=== PATIENT | male | born 1975 | race Caucasian/White ===

== ENCOUNTER 2018-04-30 17:35 | Observation (INO) ==
[2018-04-30] MEDS ORDERED: 0.9 % Sodium Chloride 1,000 ML IVC ONE (17:43)
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
[2018-04-30 17:53] LABS: Basophils % 0.5 %; Eosinophils # 0.2 K/mcL (0.0-0.6); Eosinophils % 2.7 %; Hematocrit 48.9 % (37.5-50.1); Hemoglobin 15.7 g/dL (12.9-16.9); Immature Granulocytes % 0.2 % (0-4); Lymphocytes % 31.9 %; Mean Corpuscular HGB Conc 32.1 g/dL (31.6-35.5); Mean Corpuscular Hemoglobin 26.4 pg (28.0-33.3); Mean Corpuscular Volume 82.3 fL (83.0-100.0); Mean Platelet Volume 9.7 fL (9.4-12.4); Monocytes # 0.4 K/mcL (0.0-1.3); Monocytes % 5.9 %; Neutrophils # 3.7 K/mcL (1.6-8.9); Platelet Count 129 K/mcL (140-400); Red Blood Count 5.94 M/mcL (4.19-5.50); Red Cell Distribution Width 15.7 % (11.5-14.5); Segmented Neutrophils % 58.8 %
[2018-04-30 17:57] LABS: INR 1.2; Prothrombin Time 13.4 Seconds (9.4-12.1)
[2018-04-30 18:16] LABS: Troponin I < 0.03 ng/mL (< 0.04)
[2018-04-30 18:17] LABS: Alanine Aminotransferase 62 Units/L (7-52); Albumin 4.4 g/dL (3.5-5.7); Albumin/Globulin Ratio 1.1 (1.1-2.2); Alkaline Phosphatase 161 Units/L (34-104); Aspartate Amino Transferase 69 Units/L (13-39); BUN/Creatinine Ratio 14 (6-26); Bilirubin,Direct 0.1 mg/dL (0.0-0.2); Bilirubin,Indirect 0.3 mg/dL (0.0-1.2); Bilirubin,Total 0.4 mg/dL (0.3-1.0); Blood Urea Nitrogen 12 mg/dL (6-20); Calcium 10.4 mg/dL (8.6-10.3); Carbon Dioxide 24 mEq/L (23-29); Chloride 108 mEq/L (98-107); Globulin 3.9 g/dL (2.4-3.5); Glucose 202 mg/dL (70-105); Osmolality,Calculated 294 (280-300); Potassium 4.1 mEq/L (3.5-5.1); Sodium 139 mEq/L (136-145); Total Protein 8.3 g/dL (6.4-8.9); eGFR For Non-African Americans > 60 (> 60)
[2018-04-30 19:29] LABS: Bilirubin,Urine Negative (Negative); Blood,Urine Negative (Negative); Clarity,Urine Clear (Clear); Color,Urine Yellow (Yellow); Glucose,Urine (UA) >=1000 mg/dL (Normal); Ketones,Urine Negative (Negative); Leukocyte Esterase,Urine Negative (Negative); Nitrite,Urine Negative (Negative); Protein,Urine Trace mg/dL (Neg-Trace); Specific Gravity,Urine 1.025 (1.010-1.025); Urobilinogen,Urine Normal (Normal)
[2018-04-30] MEDS ORDERED: Naloxone 0.4 MG/ML INJ IVP PRN (23:07)
[2018-04-30] MEDS ORDERED: Sennosides 8.6 MG TABLET PO PRN (23:09)
[2018-04-30] MEDS ORDERED: GuaiFENesin Liq 200 MG/10 ML UDC PO PRN (23:09)
[2018-04-30] MEDS ORDERED: *HR* Dextrose 50 % in Water (Syg) 50 ML SYRINGE IVP PRN (23:13)
[2018-04-30] MEDS ORDERED: Dextrose Gel 15 GM/37.5 ML TUBE PO PRN ×2 (23:13)
[2018-05-01] MEDS ORDERED: D5% in Water 1,000 ML IVC PRN (00:38)
[2018-05-01] MEDS ORDERED: Insulin DETEMIR 100 UNIT/ML X5UNITS SQ SCH (00:45)
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
[2018-05-01 01:43] LABS: Basophils % 0.7 %; Eosinophils # 0.2 K/mcL (0.0-0.6); Eosinophils % 2.9 %; Hematocrit 43.9 % (37.5-50.1); Hemoglobin 14.4 g/dL (12.9-16.9); Immature Granulocytes % 0.3 % (0-4); Lymphocytes % 34.4 %; Mean Corpuscular HGB Conc 32.8 g/dL (31.6-35.5); Mean Corpuscular Hemoglobin 26.9 pg (28.0-33.3); Mean Corpuscular Volume 81.9 fL (83.0-100.0); Monocytes # 0.3 K/mcL (0.0-1.3); Monocytes % 5.1 %; Neutrophils # 3.3 K/mcL (1.6-8.9); Platelet Count 128 K/mcL (140-400); Red Blood Count 5.36 M/mcL (4.19-5.50); Red Cell Distribution Width 15.7 % (11.5-14.5); Segmented Neutrophils % 56.6 %
[2018-05-01 02:04] LABS: BUN/Creatinine Ratio 15 (6-26); Blood Urea Nitrogen 12 mg/dL (6-20); Calcium 9.3 mg/dL (8.6-10.3); Carbon Dioxide 24 mEq/L (23-29); Chloride 114 mEq/L (98-107); Glucose 117 mg/dL (70-105); Magnesium 1.8 mg/dL (1.6-2.6); Osmolality,Calculated 299 (280-300); Phosphorous 3.5 mg/dL (2.7-4.5); Potassium 3.5 mEq/L (3.5-5.1); Sodium 144 mEq/L (136-145); eGFR For Non-African Americans > 60 (> 60)
[2018-05-01] MEDS: Baclofen 10 MG TABLET PO SCH ×3 (02:19→16:43)
[2018-05-01] MEDS: Insulin DETEMIR 100 UNIT/ML X5UNITS SQ SCH ×3 (02:19→22:07)
[2018-05-01] MEDS: Levofloxacin 750 MG/150 ML 750 MG/150 ML BAG IVPB SCH (02:41)
[2018-05-01 04:59] LABS: Amphetamine Screen,Urine Negative ng/mL (Cutoff=1000); Barbiturate Screen,Urine Negative ng/mL (Cutoff=200); Benzodiazepines Screen,Urine Positive ng/mL (Cutoff=200); Cannabinoid Screen,Urine Negative ng/mL (Cutoff = 50); Cocaine Screen,Urine Negative ng/mL (Cutoff= 300); Opiate Screen,Urine Negative ng/mL (Cutoff=300); Phencyclidine Screen,Urine Negative ng/mL (Cutoff=25)
[2018-05-01] MEDS: *HR* Heparin 5,000 UNIT/ML VIAL SQ SCH ×2 (06:51→18:44)
[2018-05-01] MEDS: Insulin LISPRO 300 UNITS/3 ML VIAL SQ SCH ×3 (08:28→16:41)
[2018-05-01] MEDS: Famotidine 20 MG TABLET PO SCH ×2 (08:46→22:07)
[2018-05-01] MEDS: Folic Acid 1 MG TABLET PO SCH (08:46)
[2018-05-01] MEDS: Multivit/Ca/Min/Fe/FA 1 TAB TABLET PO SCH (08:46)
[2018-05-01] MEDS: Topiramate 100 MG TABLET PO SCH ×2 (08:47→22:07)
[2018-05-01] MEDS: Gabapentin 400 MG CAPSULE PO SCH ×2 (08:47→22:06)
[2018-05-01] MEDS: Aspirin Enteric Coated 81 MG Tablet PO SCH (08:47)
[2018-05-01] MEDS ORDERED: (Cranberry Fruit Concentrate [Cranberry] 450 MG) PO SCH ×2 (09:00)
[2018-05-01] MEDS ORDERED: chlorproMAZINE 25 MG TABLET PO SCH (09:00)
--- NOTE | 2018-05-01 15:05 | Internal Med Progress Note ---
Hospitalist Progress Note - Encounter Date of Encounter: 05/01/18 Time of Encounter: 14:54 - Subjective Interval History: Evaluated patient earlier today. Denies any new speech abnormalities. Denies any new focal deficits. Denies any cough or shortness of breath. No nausea or vomiting. - Exam Vitals: Temp Pulse Resp BP Pulse Ox 97.9 F 73 14 119/62 96 05/01/18 14:34 05/01/18 14:34 05/01/18 14:34 05/01/18 14:34 05/01/18 14:34 Exam: General: Patient is alert, no acute distress, Head: atraumatic, normocephalic, Eye: normal appearance, PERRL, no scleral icterus, no conjunctival injection ENT: mucous membranes moist, normal external ear exam Neck: normal inspection, trachea midline, full ROM, no carotid bruits Chest: normal inspection, symmetric chest rise Respiratory: Good respiratory effort. Normal breath sounds. No wheezing or crackles.. Cardiovascular: Regular rate and rhythm. s1 and s2 No clicks, rubs, gallops, or murmurs. No pedal edema Abdomen: Abdomen is soft, nontender. Bowel sounds are present Musculoskeletal: Spontaneously moving all extremities. Skin: warm, dry, intact. Neuro: Patient has slow speech at baseline. Paraplegia at baseline. Normal strength in upper extremities. - Assessment and Plan (1) Community acquired pneumonia Current Visit: Yes Status: Acute Assessment and Plan: Right lower lobe pneumonia. Per chest x-ray findings. WBC count is normal. Will complete 7 day course of Levaquin. Follow culture results. (2) CVA (cerebral vascular accident) Current Visit: Yes Status: Suspected Assessment and Plan: Reported slurred speech. On my examination, patient has slow speech but speech is not slurred. He wants to go home but MRI of the brain and 2-D echocardiogram are currently pending. Will await results. (3) Diabetes mellitus Current Visit: Yes Status: Chronic Assessment and Plan: continue sliding scale insulin and Levemir. Diabetic diet. (4) DVT prophylaxis Current Visit: Yes Status: Acute DVT Prophylaxis: On subcutaneous heparin - Time Spent with Patient Total time spent is greater than 50% in coordination of care (as documented) at patient's floor/unit and/or counseling patient: Internal Medicine: Result - Labs CBC & Chem 7: 05/01/18 00:19 08/07/18 00:19 Labs: Short CBC 05/01/18 Range/Units 00:19 WBC 5.9 (4.3-11.1) K/mcL Hgb 14.4 (12.9-16.9) g/dL Hct 43.9 (37.5-50.1) % Plt Count 128 L (140-400) K/mcL Neutrophils # 3.3 (1.6-8.9) K/mcL BMP 05/01/18 00:19 Sodium 144 Potassium 3.5 Chloride 114 H Carbon Dioxide 24 BUN 12 Creatinine 0.78 Glucose 117 H Calcium 9.3 Cardiac Enzymes 05/01/18 05/01/18 05/01/18 Range/Units 00:19 06:21 12:38 Troponin I < 0.03 < 0.03 < 0.03 (< 0.04) ng/mL - ABG Interpretation ABG results: PT/INR, D-dimer PT 13.4 Seconds (9.4-12.1) H 04/30/18 17:40 Consult Discharge Plan - Plan Referrals: NONE,PCP [Primary Care Provider] - Jude Bailey [Family Provider] - (1) Community acquired pneumonia Qualifiers: Laterality: unspecified laterality Qualified Code(s): J18.9 - Pneumonia, unspecified organism (2) CVA (cerebral vascular accident) Qualifiers: Laterality of affected vessel: unspecified Qualified Code(s): I63.019 - Cerebral infarction due to thrombosis of unspecified vertebral artery (3) Diabetes mellitus Qualifiers: Qualified Code(s): E11.9 - Type 2 diabetes mellitus without complications
[2018-05-02] MEDS: Levofloxacin 750 MG/150 ML 750 MG/150 ML BAG IVPB SCH (01:01)
[2018-05-02] MEDS: Baclofen 10 MG TABLET PO SCH ×2 (01:02→09:40)
[2018-05-02] MEDS: *HR* Heparin 5,000 UNIT/ML VIAL SQ SCH (06:18)
[2018-05-02 07:56] VITALS: BP 112/77
--- NOTE | 2018-05-02 07:56 | Discharge Summary ---
- NOTES TO OUTPATIENT PROVIDER Notes to Outpatient Provider: Patient was hospitalized here after presenting to the ER with complaints of lethargy and decreased alertness along with concern for possible right-sided facial droop. She was evaluated here and was for diagnosed with pneumonia. He was started on treatment with antibiotics. He also had workup done to rule out CVA/stroke. MRI of the brain, head CT did not show any stroke. 2-D echocardiogram was done which showed normal ejection fraction without any PFO. At this time patient is stable to be discharged home. He will complete a 7 day course of antibiotic for pneumonia. Orders not resulted at time of discharge: Pending orders 05/01/18 01:40 Culture,Blood [BC] Routine Date of Encounter: 05/02/18 Time of Encounter: 07:56 - Discharge Diagnosis (1) Community acquired pneumonia Priority: Primary Status: Acute Qualifiers: Laterality: unspecified laterality Qualified Code(s): J18.9 - Pneumonia, unspecified organism (2) CVA (cerebral vascular accident) Priority: Secondary Status: Ruled-out Qualifiers: CVA mechanism: unspecified Qualified Code(s): I63.9 - Cerebral infarction, unspecified (3) Diabetes mellitus Priority: Secondary Status: Chronic Qualifiers: Diabetes mellitus type: type 2 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 Nelson is a 42 year old male Patient with history of paraplegia, who resides at [facility], diabetes, hypertension was hospitalized here after presenting to the ER with complaints of lethargy and decreased alertness along with concern for possible right-sided facial droop. She was evaluated here and was for diagnosed with pneumonia. He was started on treatment with antibiotics. He also had workup done to rule out CVA/stroke. MRI of the brain, head CT did not show any stroke. 2-D echocardiogram was done which showed normal ejection fraction without any PFO. At this time patient is stable to be discharged home. He will complete a 7 day course of antibiotic for pneumonia. Discharge discussed with: patient, nurse - Time Spent with Patient Total time spent providing and/or coordinating discharge services: Less than 30 minutes (25min) - Discharge Medications Prescriptions: Cefdinir [Omnicef] 300 mg PO BID #10 capsule Doxycycline 100 mg PO BID #10 capsule Gabapentin [Neurontin] 800 mg PO BID #30 tablet Tramadol HCl [Ultram] 50 mg PO Q6H 10 Days #20 tablet Home Medications: Acetaminophen [Acetaminophen ER] 650 mg PO Q4H PRN 04/30/18 [History] Aspirin Enteric Coated [Aspirin EC] 81 mg PO DAILY 04/30/18 [History] Baclofen [Lioresal] 10 mg PO Q8H 04/30/18 [History] Cranberry Fruit Concentrate [Cranberry] 450 mg PO BID 04/30/18 [History] Folic Acid 1 mg PO DAILY 04/30/18 [History] Guaifenesin [Tussin Mucus-Chest Congestion] 5 ml PO Q6H PRN 04/30/18 [History] Insulin Glargine,Hum.rec.anlog [Basaglar Kwikpen U-100] 50 unit SQ HS 04/30/18 [ History] Insulin Glargine,Hum.rec.anlog [Basaglar Kwikpen U-100] 60 unit SQ QAM 04/30/18 [History] Insulin LISPRO [HumaLOG] 2 - 25 units SQ TIDWM 04/30/18 [History] Multivitamin [One Daily Essential] 1 tab PO DAILY 04/30/18 [History] Quetiapine Fumarate [Seroquel] 75 mg PO QAM 04/30/18 [History] Quetiapine Fumarate [Seroquel] 150 mg PO HS 04/30/18 [History] Ranitidine HCl [Acid Livestock Agent] 150 mg PO BID 04/30/18 [History] Sennosides [Senna] 8.6 mg PO BID PRN 04/30/18 [History] Sertraline [Zoloft] 50 mg PO QAM 04/30/18 [History] Sertraline [Zoloft] 100 mg PO HS 04/30/18 [History] Topiramate [Topamax] 200 mg PO BID 04/30/18 [History] chlorproMAZINE [Thorazine] 50 mg PO TID 04/30/18 [History] hydrOXYzine HCl [Hydroxyzine HCl] 25 mg PO HS 04/30/18 [History] metFORMIN [Glucophage] 1,000 mg PO BIDWM 04/30/18 [History] Cefdinir [Omnicef] 300 mg PO BID #10 capsule 05/02/18 [Rx] Doxycycline 100 mg PO BID #10 capsule 05/02/18 [Rx] Gabapentin [Neurontin] 800 mg PO BID #30 tablet 05/02/18 [Rx] Tramadol HCl [Ultram] 50 mg PO Q6H 10 Days #20 tablet 05/02/18 [Rx] Allergies/Adverse Reactions: 3 Allergy/AdvReac Type Severity Reaction Status Date / Time acetaminophen Allergy Nausea Verified 10/13/17 10:02 [From Darvocet-N] Cyclobenzaprine Allergy Nausea Verified 10/13/17 10:02 [From Flexeril] propoxyphene Allergy Nausea Verified 10/13/17 10:02 [From Darvocet-N] Sulfa (Sulfonamide Allergy Nausea Verified 10/13/17 10:02 Antibiotics) Date of admission: 04/30/18 20:42 Primary care physician: PCP NONE Discharging clinician: Ayad Mack Anticipated date of discharge: 05/02/18 - Constitutional Vitals: Temp Pulse Resp BP Pulse Ox 98.4 F 57 16 152/85 99 05/02/18 05:07 05/02/18 05:07 05/02/18 05:07 05/02/18 05:07 05/02/18 05:07 General appearance: Present: A&O X 3, no acute distress, answers questions appropriately - Respiratory Respiratory exam: Present: CTAB. Absent: accessory muscle use, rales, rhonchi, wheezes - Cardiovascular Cardiovascular exam: Present: RRR, +S1, +S2. Absent: diastolic murmur, gallop, rubs, systolic murmur - GI/Abdominal GI/Abdominal exam: Present: normal bowel sounds, soft, no peritoneal signs. Absent: distended, tenderness - Extremities Exam Extremities exam: Present: warm, radial pulses palpable and symmetrical. Absent : calf tenderness, cyanotic, pedal edema - Neurological Exam Neurological exam: Present: speech deficit (Slow speech at baseline). Absent: facial droop Additional comments: Paraplegia - Patient Status Disposition: Transfer SNF Condition: Good Functional capacity at discharge: wheelchair bound Overall status at discharge: patient is progressing back to baseline - Discharge Instructions Instructions: Pneumonia (DC) Follow Up With: NONE,PCP [Primary Care Provider] - Jude Bailey [Family Provider] - - Diet and Activity Activity: increase activity as tolerated Diet: advance to your usual diet
--- NOTE | 2018-05-02 08:41 | Physician Discharge Referral ---
ExtendedCare Referral Info Provider in Charge after Transfer: PCP Institutional Level of Care: Skilled - Diagnosis (1) Community acquired pneumonia Priority: Primary Status: Acute (2) CVA (cerebral vascular accident) Priority: Secondary Status: Ruled-out (3) Diabetes mellitus Priority: Secondary Status: Chronic (4) DVT prophylaxis Priority: Secondary Status: Acute Prognosis: Fair Aware of Diagnosis: Patient Aware of Prognosis: Patient - Transfer Medications Prescriptions: Cefdinir [Omnicef] 300 mg PO BID #10 capsule Doxycycline 100 mg PO BID #10 capsule Gabapentin [Neurontin] 800 mg PO BID #30 tablet Tramadol HCl [Ultram] 50 mg PO Q6H 10 Days #20 tablet Home Medications: Acetaminophen [Acetaminophen ER] 650 mg PO Q4H PRN 04/30/18 [History] Aspirin Enteric Coated [Aspirin EC] 81 mg PO DAILY 04/30/18 [History] Baclofen [Lioresal] 10 mg PO Q8H 04/30/18 [History] Cranberry Fruit Concentrate [Cranberry] 450 mg PO BID 04/30/18 [History] Folic Acid 1 mg PO DAILY 04/30/18 [History] Guaifenesin [Tussin Mucus-Chest Congestion] 5 ml PO Q6H PRN 04/30/18 [History] Insulin Glargine,Hum.rec.anlog [Basaglar Kwikpen U-100] 50 unit SQ HS 04/30/18 [ History] Insulin Glargine,Hum.rec.anlog [Basaglar Kwikpen U-100] 60 unit SQ QAM 04/30/18 [History] Insulin LISPRO [HumaLOG] 2 - 25 units SQ TIDWM 04/30/18 [History] Multivitamin [One Daily Essential] 1 tab PO DAILY 04/30/18 [History] Quetiapine Fumarate [Seroquel] 75 mg PO QAM 04/30/18 [History] Quetiapine Fumarate [Seroquel] 150 mg PO HS 04/30/18 [History] Ranitidine HCl [Acid Shipyard Laborer] 150 mg PO BID 04/30/18 [History] Sennosides [Senna] 8.6 mg PO BID PRN 04/30/18 [History] Sertraline [Zoloft] 50 mg PO QAM 04/30/18 [History] Sertraline [Zoloft] 100 mg PO HS 04/30/18 [History] Topiramate [Topamax] 200 mg PO BID 04/30/18 [History] chlorproMAZINE [Thorazine] 50 mg PO TID 04/30/18 [History] hydrOXYzine HCl [Hydroxyzine HCl] 25 mg PO HS 04/30/18 [History] metFORMIN [Glucophage] 1,000 mg PO BIDWM 04/30/18 [History] Cefdinir [Omnicef] 300 mg PO BID #10 capsule 05/02/18 [Rx] Doxycycline 100 mg PO BID #10 capsule 05/02/18 [Rx] Gabapentin [Neurontin] 800 mg PO BID #30 tablet 05/02/18 [Rx] Tramadol HCl [Ultram] 50 mg PO Q6H 10 Days #20 tablet 05/02/18 [Rx] Allergies/Adverse Reactions: 3 Allergy/AdvReac Type Severity Reaction Status Date / Time acetaminophen Allergy Nausea Verified 10/13/17 10:02 [From Darvocet-N] Cyclobenzaprine Allergy Nausea Verified 10/13/17 10:02 [From Flexeril] propoxyphene Allergy Nausea Verified 10/13/17 10:02 [From Darvocet-N] Sulfa (Sulfonamide Allergy Nausea Verified 10/13/17 10:02 Antibiotics) - Respiratory Orders Smoking Cessation: Smoking cessation has been advised. For more information, call the [place] Tobacco Quit Line at 5-492-IDLC-NOW. - Ancillary Orders May consult with Dentist, Traveling Inventory Associate, Clinical Physician Assistant PRN - Advance Directives Code Status: Full Code - Mobility Orders Other (per PT) - Rehabiliation Orders Rehab Potential: Fair Rehab Orders: Evaluation for Physical Therapy, Evaluation for Occupational Therapy - Diet Orders Regular CERTIFICATION: I certify that the transfer of the above named patient to an Extended Care Facility is necessary for the continuing treatment of the diagnosis listed. The above information is true and accurate reflection of patient's current condition. Confidential - Redisclosure prohibited without a patient's written consent.
[2018-05-02] MEDS: Insulin LISPRO 300 UNITS/3 ML VIAL SQ SCH (09:38)
[2018-05-02] MEDS: Topiramate 100 MG TABLET PO SCH (09:39)
[2018-05-02] MEDS: Folic Acid 1 MG TABLET PO SCH (09:39)
[2018-05-02] MEDS: Gabapentin 400 MG CAPSULE PO SCH (09:39)
[2018-05-02] MEDS: Multivit/Ca/Min/Fe/FA 1 TAB TABLET PO SCH (09:39)
[2018-05-02] MEDS: Aspirin Enteric Coated 81 MG Tablet PO SCH (09:39)
[2018-05-02] MEDS: Famotidine 20 MG TABLET PO SCH (09:39)
[2018-05-02] MEDS: Insulin DETEMIR 100 UNIT/ML X5UNITS SQ SCH (09:40)
--- NOTE | 2018-05-02 15:07 | Electrocardiograph Report ---
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
== END 2018-05-02 10:22 ==
LOC: EMEROO 17:35 → 3ANU 17:35 → SUATTDRO 20:42 → 3ANU 21:28
PROVIDERS: ADMIT Internal Medicine; ATTEND Internal Medicine

== ENCOUNTER 2019-01-20 03:28 | Inpatient (IN) ==
--- NOTE | 2019-01-20 03:39 | Emergency Department Note ---
Disposition Clinical Impression: Hypomagnesemia, Hyperglycemia Pneumonia Qualifiers: Pneumonia type: aspiration pneumonia Aspiration pneumonia type: unspecified Laterality: unspecified laterality Lung location: unspecified part of lung Qualified Code(s): J69.0 - Pneumonitis due to inhalation of food and vomit Sepsis Qualifiers: Sepsis type: sepsis due to unspecified organism Qualified Code(s): A41.9 - Sepsis, unspecified organism Disposition: Admitted As Inpatient Condition: Serious General Adult HPI - General Chief complaint: ED Shortness of Breath/Dyspnea Stated complaint: DIOR Time Seen by Provider: 01/20/19 03:35 Nursing Notes Reviewed: Yes Vital Signs Reviewed: Yes - History of Present Illness HPI Narrative: 43-year-old male with history of spinal cord injury and testicular cancer in remission who presents the emergency department via EMS from [facility] with complaints of shortness of breath and chest pain. Patient states his chest pain and short ness of breath have been ongoing for several weeks but upon discussion with the patient's nursing facility he had sudden onset chest pain and shortness of breath today. He was acting his normal self but had intermittent tremors which is nurse attributed to his baseline muscle spasms. He was given baclofen but his shivering persisted. At no point did he have a fever Upon recheck he was found to be hypoxic to the 70s with a heart rate in the 160s therefore EMS was contacted. He does have persistent dysphasia but refuses to follow the recommendations of a thickened nectar diet and therefore continues to eat solid foods. - Related Data Home Medications Medication Instructions Recorded Confirmed Acetaminophen [Acetaminophen ER] 650 mg PO Q4H PRN 04/30/18 01/20/19 Aspirin Enteric Coated [Aspirin EC] 81 mg PO DAILY 04/30/18 01/20/19 Baclofen [Lioresal] 10 mg PO Q8H PRN 04/30/18 01/20/19 Folic Acid 1 mg PO DAILY 04/30/18 01/20/19 Guaifenesin [Tussin Mucus-Chest 10 ml PO Q6H PRN 04/30/18 01/20/19 Congestion] Insulin Glargine,Hum.rec.anlog 60 unit SQ HS 04/30/18 01/20/19 [Basaglar Kwikpen U-100] Insulin Glargine,Hum.rec.anlog 70 unit SQ DAILY 04/30/18 01/20/19 [Basaglar Natanaellilo U-100] Insulin LISPRO [HumaLOG] 2 - 25 units SQ TIDAC 04/30/18 01/20/19 Multivitamin [One Daily Essential] 1 tab PO DAILY 04/30/18 01/20/19 Quetiapine Fumarate [Seroquel] 50 mg PO QAM 04/30/18 01/20/19 Quetiapine Fumarate [Seroquel] 150 mg PO HS 04/30/18 01/20/19 Ranitidine HCl [Acid Rice [employer] Worker] 150 mg PO BID 04/30/18 01/20/19 Sennosides [Senna] 8.6 mg PO BID 04/30/18 01/20/19 Sertraline [Zoloft] 50 mg PO HS 04/30/18 01/20/19 Sertraline [Zoloft] 100 mg PO HS 04/30/18 01/20/19 Topiramate [Topamax] 200 mg PO BID 04/30/18 01/20/19 chlorproMAZINE [Thorazine] 25 mg PO TID 04/30/18 01/20/19 hydrOXYzine HCl [Hydroxyzine HCl] 25 mg PO HS 04/30/18 01/20/19 metFORMIN [Glucophage] 1,000 mg PO BIDWM 04/30/18 01/20/19 Sitagliptin Phosphate [Januvia] 50 mg PO DAILY 12/27/18 01/20/19 Diclofenac Sodium [Voltaren] 1 appl TD BID 01/20/19 01/20/19 Gabapentin [Neurontin] 800 mg PO TID 01/20/19 01/20/19 Ketoconazole Shampoo [Nizoral 1 appl TP SUTUFR 01/20/19 01/20/19 Shampoo] Oxycodone HCl 5 mg PO QID 01/20/19 01/20/19 Previous Rx's Medication Instructions Recorded Ascorbic Acid [Vitamin C] 500 mg PO DAILY #30 tablet 12/27/18 Ferrous Sulfate [Iron] 325 mg PO DAILY #30 tablet 12/27/18 Allergies Allergy/AdvReac Type Severity Reaction Status Date / Time acetaminophen Allergy Nausea Verified 12/27/18 11:50 [From Darvocet-N] Cyclobenzaprine Allergy Nausea Verified 12/27/18 11:50 [From Flexeril] propoxyphene Allergy Nausea Verified 12/27/18 11:50 [From Darvocet-N] Sulfa (Sulfonamide Allergy Nausea Verified 12/27/18 11:50 Antibiotics) Review of Systems: ROS per history of present illness, all other systems reviewed and negative or normal. All systems ED: reviewed and negative except as stated. Review of Systems: As Per HPI Past Medical History - Past Medical History Medical history: Reports: cancer, diabetes, hypertension Psychiatric history: Reports: anxiety, bipolar, depression - Social History Smoking Status: Former smoker Smokeless Tobacco Status: No Alcohol use: Reports: none Drug use: Reports: none Physical Exam General: Conversant. No apparent distress. Follow commands. Appears older than stated age. Patient has rigors. Neck: No JVD. Trachea midline. Neck supple. Eyes: PERRL. No scleral icterus. HENT: Normocephalic and atraumatic. Moist mucus membranes. Cardiovascular: Regular rate and rhythm. Normal S1 and S2. No murmurs apprec iated. Normal capillary refill. Extremities well perfused with 2+ distal pulses bilaterally. No edema. Pulmonary: Coarse breath sounds in left lower lobe. Not in respiratory distress. Speaks in full sentences. Abdomen: Soft, nondistended, and tontender. No bruits or masses. No guarding. Neuro: Alert and oriented x3. No slurred speech. No focal deficits noted. Skin: No rashes noted on visualized skin. Musculoskeletal: No bony abnormalities visualized. Moves all extremities. Left lower extremity has 1+ edema with marked external rotation which the patient states is chronic. Psych: Normal mood. Pleasant. Makes appropriate eye contact. Course - Reevaluation(s) Reevaluation #1: Discussed case with darin who states he was concerned predominantly for shivering and increased shortness of breath with Spo2 70s, tachycardia to 160s. Accucheck 334. He is not on baseline oxygen. He is a high aspiration risk and should be on a thickened nectar liquids but refuses to do so and often has dyphagia. Per nurse the chest pain and shortness of breath is new today. Time: 03:51 Vital Signs Temperature 103.9 F H 01/20/19 03:33 Pulse Rate 141 01/20/19 03:33 Respiratory Rate 40 01/20/19 03:33 Blood Pressure 151/89 01/20/19 03:33 O2 Sat by Pulse Oximetry 100 01/20/19 03:33 Temperature 103.9 F H 01/20/19 03:33 Pulse Rate 116 01/20/19 07:19 Respiratory Rate 18 01/20/19 07:19 Blood Pressure 132/87 01/20/19 07:19 O2 Sat by Pulse Oximetry 96 01/20/19 07:19 Oxygen Delivery Oxygen Delivery Room Air Medical Decision Making - MDM Narrative Medical decision making narrative: 43-year-old male with history of spinal cord injury here presents the emergency department short of breath and chest pain. He was approximately at his nursing facility per reports. On arrival he is tachycardic, febrile, tachypneic and has rigors. He is otherwise normotensive. Given his history of probable aspiration did initiate septic evaluation including lactate, CBC, BMP on the blood cultures and urinalysis. CT and chest was also obtained to evaluate for pulmonary embolism given his bedbound status. Laboratory evaluation showed lactic acidosis of 3.4. He has no evidence of significant leukocytosis or anemia. He has baseline thrombocytopenia which is stable today and 93. Otherwise he does have evidence of hyperglycemia and hypomagnesemia without diabetic ketoacidosis. Urinalysis shows no evidence of urinary tract infection or ketones. CT and chest shows no evidence of pulmonary embolism but there is evidence of bilateral pulmonary infiltrates, suspicious for pneumonia given his high aspiration risk. We did initiate 30 mL/kg fluid bolus for sepsis and started him on vancomycin and Zosyn. The patient's blood pressure has remained stable here in the emergency department. He was actually weaned from oxygen and is now saturating at 96% on room air. Discussed case with on-call hospitalist Dr. Albright who agrees with plan for admission and accepts the patient to the inpatient service. Patient agrees with and understands course of treatment plan including plan for admission. All questions answered. - Medical Records Medical records reviewed: Yes I reviewed the patient's medical records. - Lab Data Lab results reviewed: Yes I reviewed the patient's lab results. Result diagrams: 01/20/19 04:03 01/20/19 04:03 Lab Results 01/20/19 01/20/19 01/20/19 Range/Units 04:03 04:03 04:03 WBC (4.3-11.1) K/mcL RBC (4.19-5.50) M/mcL Hgb (12.9-16.9) g/dL Hct (37.5-50.1) % MCV (83.0-100.0) fL MCH (28.0-33.3) pg MCHC (31.6-35.5) g/dL RDW (11.5-14.5) % Plt Count (140-400) K/mcL MPV Immature Gran % (0-4) % Seg Neutrophils % % Lymphocytes % % Monocytes % % Eosinophils % % Basophils % % Neutrophils # (1.6-8.9) K/mcL Lymphocytes # (0.6-4.6) K/mcL Monocytes # (0.0-1.3) K/mcL Eosinophils # (0.0-0.6) K/mcL Basophils # (0.0-0.2) K/mcL PT (9.4-12.1) Seconds INR APTT (26.0-36.0) Seconds Sodium 139 (136-145) mEq/L Potassium 4.1 (3.5-5.1) mEq/L Chloride 103 (98-107) mEq/L Carbon Dioxide 22 L (23-29) mEq/L BUN 10 (6-20) mg/dL Creatinine 0.99 (0.70-1.30) mg/dL Est GFR ( Amer) > 60 (> 60) Est GFR (Non-Af Amer) > 60 (> 60) BUN/Creatinine Ratio 10 (6-26) Glucose 344 H (70-105) mg/dL Calculated Osmolality 301 H (280-300) Lactic Acid 3.8 H (0.5-2.2) mmol/L Calcium 10.3 (8.6-10.3) mg/dL Phosphorus 3.3 (2.7-4.5) mg/dL Magnesium 1.5 L (1.6-2.6) mg/dL Total Bilirubin 0.6 (0.3-1.0) mg/dL Direct Bilirubin 0.2 (0.0-0.2) mg/dL Indirect Bilirubin 0.4 (0.0-1.2) mg/dL AST 50 H (13-39) Units/L ALT 40 (7-52) Units/L Alkaline Phosphatase 157 H (34-104) Units/L Troponin I < 0.03 (< 0.04) ng/mL B-Natriuretic Peptide (Less than 100) pg/mL Serum Total Protein 9.0 H (6.4-8.9) g/dL Albumin 4.5 (3.5-5.7) g/dL Globulin 4.5 H (2.4-3.5) g/dL Albumin/Globulin Ratio 1.0 L (1.1-2.2) Urine Color (Yellow) Urine Clarity (Clear) Urine pH (5.0-8.0) pH Units Ur Specific [place] (1.010-1.025) Urine Protein (Neg-Trace) mg/dL Urine Glucose (UA) (Normal) mg/dL Urine Ketones (Negative) mg/dL Urine Blood (Negative) Urine Nitrite (Negative) Urine Bilirubin (Negative) Urine Urobilinogen (Normal) mg/dL Ur Leukocyte Esterase (Negative) Ur Culture Indicated? (NO) 01/20/19 01/20/19 01/20/19 Range/Units 04:03 04:03 04:40 WBC 6.3 (4.3-11.1) K/mcL RBC 6.10 H (4.19-5.50) M/mcL Hgb 15.4 (12.9-16.9) g/dL Hct 49.6 (37.5-50.1) % MCV 81.3 L (83.0-100.0) fL MCH 25.2 L (28.0-33.3) pg MCHC 31.0 L (31.6-35.5) g/dL RDW 18.1 H (11.5-14.5) % Plt Count 93 L (140-400) K/mcL MPV TNP Immature Gran % 0.2 (0-4) % Seg Neutrophils % 83.6 % Lymphocytes % 11.8 % Monocytes % 3.5 % Eosinophils % 0.6 % Basophils % 0.3 % Neutrophils # 5.3 (1.6-8.9) K/mcL Lymphocytes # 0.7 (0.6-4.6) K/mcL Monocytes # 0.2 (0.0-1.3) K/mcL Eosinophils # 0.0 (0.0-0.6) K/mcL Basophils # 0.0 (0.0-0.2) K/mcL PT 13.5 H (9.4-12.1) Seconds INR 1.2 APTT 42.0 H (26.0-36.0) Seconds Sodium (136-145) mEq/L Potassium (3.5-5.1) mEq/L Chloride (98-107) mEq/L Carbon Dioxide (23-29) mEq/L BUN (6-20) mg/dL Creatinine (0.70-1.30) mg/dL Est GFR ( Amer) (> 60) Est GFR (Non-Af Amer) (> 60) BUN/Creatinine Ratio (6-26) Glucose (70-105) mg/dL Calculated Osmolality (280-300) Lactic Acid (0.5-2.2) mmol/L Calcium (8.6-10.3) mg/dL Phosphorus (2.7-4.5) mg/dL Magnesium (1.6-2.6) mg/dL Total Bilirubin (0.3-1.0) mg/dL Direct Bilirubin (0.0-0.2) mg/dL Indirect Bilirubin (0.0-1.2) mg/dL AST (13-39) Units/L ALT (7-52) Units/L Alkaline Phosphatase (34-104) Units/L Troponin I (< 0.04) ng/mL B-Natriuretic Peptide (Less than 100) pg/mL Serum Total Protein (6.4-8.9) g/dL Albumin (3.5-5.7) g/dL Globulin (2.4-3.5) g/dL Albumin/Globulin Ratio (1.1-2.2) Urine Color Yellow (Yellow) Urine Clarity Clear (Clear) Urine pH 6.0 (5.0-8.0) pH Units Ur Specific [place] 1.018 (1.010-1.025) Urine Protein Negative (Neg-Trace) mg/dL Urine Glucose (UA) 500 H (Normal) mg/dL Urine Ketones Negative (Negative) mg/dL Urine Blood Negative (Negative) Urine Nitrite Negative (Negative) Urine Bilirubin Negative (Negative) Urine Urobilinogen Normal (Normal) mg/dL Ur Leukocyte Esterase Negative (Negative) Ur Culture Indicated? NO (NO) 01/20/19 Range/Units 06:43 WBC (4.3-11.1) K/mcL RBC (4.19-5.50) M/mcL Hgb (12.9-16.9) g/dL Hct (37.5-50.1) % MCV (83.0-100.0) fL MCH (28.0-33.3) pg MCHC (31.6-35.5) g/dL RDW (11.5-14.5) % Plt Count (140-400) K/mcL MPV Immature Gran % (0-4) % Seg Neutrophils % % Lymphocytes % % Monocytes % % Eosinophils % % Basophils % % Neutrophils # (1.6-8.9) K/mcL Lymphocytes # (0.6-4.6) K/mcL Monocytes # (0.0-1.3) K/mcL Eosinophils # (0.0-0.6) K/mcL Basophils # (0.0-0.2) K/mcL PT (9.4-12.1) Seconds INR APTT (26.0-36.0) Seconds Sodium (136-145) mEq/L Potassium (3.5-5.1) mEq/L Chloride (98-107) mEq/L Carbon Dioxide (23-29) mEq/L BUN (6-20) mg/dL Creatinine (0.70-1.30) mg/dL Est GFR ( Amer) (> 60) Est GFR (Non-Af Amer) (> 60) BUN/Creatinine Ratio (6-26) Glucose (70-105) mg/dL Calculated Osmolality (280-300) Lactic Acid (0.5-2.2) mmol/L Calcium (8.6-10.3) mg/dL Phosphorus (2.7-4.5) mg/dL Magnesium (1.6-2.6) mg/dL Total Bilirubin (0.3-1.0) mg/dL Direct Bilirubin (0.0-0.2) mg/dL Indirect Bilirubin (0.0-1.2) mg/dL AST (13-39) Units/L ALT (7-52) Units/L Alkaline Phosphatase (34-104) Units/L Troponin I (< 0.04) ng/mL B-Natriuretic Peptide 24 (Less than 100) pg/mL Serum Total Protein (6.4-8.9) g/dL Albumin (3.5-5.7) g/dL Globulin (2.4-3.5) g/dL Albumin/Globulin Ratio (1.1-2.2) Urine Color (Yellow) Urine Clarity (Clear) Urine pH (5.0-8.0) pH Units Ur Specific [place] (1.010-1.025) Urine Protein (Neg-Trace) mg/dL Urine Glucose (UA) (Normal) mg/dL Urine Ketones (Negative) mg/dL Urine Blood (Negative) Urine Nitrite (Negative) Urine Bilirubin (Negative) Urine Urobilinogen (Normal) mg/dL Ur Leukocyte Esterase (Negative) Ur Culture Indicated? (NO) - Radiology Data Radiology results reviewed: Yes I reviewed the patient's radiology results. Chest CTA 01/20/19 03:46 IMPRESSION: Motion limited. No central pulmonary embolus identified. Patchy nodularity throughout the lungs bilaterally, greatest in the lung bases, likely postinflammatory-infectious. A few additional more focal pulmonary nodules are seen. Recommend 3 month follow-up chest CT for further characterization. Esophageal wall thickening is seen. Fluid is seen in the esophagus to above the level of the sahil suggesting underlying reflux. Cirrhosis and splenomegaly. D/ / Jordan Abraham MD / Jordan Abraham MD Interpreting Provider: Jordan Abraham MD Chest X-Ray 01/20/19 04:15 IMPRESSION: No acute focal airspace consolidation or sizable pleural effusions. D/ / Markos Peterson MD / Markos Peterson MD Interpreting Provider: Markos Peterson MD - EKG Data EKG #1 EKG attestation: Yes I reviewed and interpreted this EKG. EKG results narrative: Sinus tachycardia rate of 136. Normal axis. No evidence of ischemic changes. No significant change when compared with prior from 04/30/16 Attestation Statement - Attestation Attestation: I examined this patient and my medical decision-making was reviewed with the Resident Physician. I agree with the documented findings, disposition and treatment plan as described except to the extent set forth below.
[2019-01-20] MEDS ORDERED: Isovue-370 500 ML BOTTLE IVP ONE ×3 (03:45→09:20)
[2019-01-20] MEDS ORDERED: 0.9 % Sodium Chloride 1,000 ML IVC STA ×3 (03:48→04:31)
[2019-01-20] MEDS ORDERED: Piperacillin/Tazobactam 3.375 GM in 0.9 % Sodium Chloride Mini Bag 100 ML IVPB ONE (04:03)
[2019-01-20 04:39] LABS: Albumin 4.5 g/dL (3.5-5.7); Bilirubin,Direct 0.2 mg/dL (0.0-0.2); Bilirubin,Indirect 0.4 mg/dL (0.0-1.2); Bilirubin,Total 0.6 mg/dL (0.3-1.0); Globulin 4.5 g/dL (2.4-3.5); Magnesium 1.5 mg/dL (1.6-2.6); Phosphorous 3.3 mg/dL (2.7-4.5)
[2019-01-20 04:40] LABS: BUN/Creatinine Ratio 10 (6-26); Blood Urea Nitrogen 10 mg/dL (6-20); Calcium 10.3 mg/dL (8.6-10.3); Carbon Dioxide 22 mEq/L (23-29); Chloride 103 mEq/L (98-107); Glucose 344 mg/dL (70-105); Osmolality,Calculated 301 (280-300); Potassium 4.1 mEq/L (3.5-5.1); Sodium 139 mEq/L (136-145); Troponin I < 0.03 ng/mL (< 0.04); eGFR For Non-African Americans > 60 (> 60)
[2019-01-20 04:51] LABS: Bilirubin,Urine Negative (Negative); Blood,Urine Negative (Negative); Clarity,Urine Clear (Clear); Color,Urine Yellow (Yellow); Glucose,Urine (UA) 500 mg/dL (Normal); Ketones,Urine Negative (Negative); Leukocyte Esterase,Urine Negative (Negative); Nitrite,Urine Negative (Negative); Protein,Urine Negative (Neg-Trace); Specific Gravity,Urine 1.018 (1.010-1.025); Urobilinogen,Urine Normal (Normal)
--- NOTE | 2019-01-20 05:34 | Emergency Department Note ---
Disposition Clinical Impression: Pneumonia, Sepsis Disposition: Admitted As Inpatient Condition: Serious Forms: ED Satisfaction Letter General Adult HPI - General Chief complaint: ED Shortness of Breath/Dyspnea Stated complaint: DIOR Time Seen by Provider: 01/20/19 03:35 Source: patient, EMS Limitations: no limitations - History of Present Illness Pain Scale: 10 - Related Data Home Medications Medication Instructions Recorded Confirmed Acetaminophen [Acetaminophen ER] 650 mg PO Q4H PRN 04/30/18 12/27/18 Aspirin Enteric Coated [Aspirin EC] 81 mg PO DAILY 04/30/18 12/27/18 Baclofen [Lioresal] 10 mg PO Q8H 04/30/18 12/27/18 Cranberry Fruit Concentrate 450 mg PO BID 04/30/18 12/27/18 [Cranberry] Folic Acid 1 mg PO DAILY 04/30/18 12/27/18 Guaifenesin [Tussin Mucus-Chest 5 ml PO Q6H PRN 04/30/18 12/27/18 Congestion] Insulin Glargine,Hum.rec.anlog 60 unit SQ HS 04/30/18 12/27/18 [Basaglar Kwikpen U-100] Insulin Glargine,Hum.rec.anlog 70 unit SQ QAM 04/30/18 12/27/18 [Basaglar Kwikpen U-100] Insulin LISPRO [HumaLOG] 2 - 25 units SQ TIDWM 04/30/18 12/27/18 Multivitamin [One Daily Essential] 1 tab PO DAILY 04/30/18 12/27/18 Quetiapine Fumarate [Seroquel] 75 mg PO QAM 04/30/18 12/27/18 Quetiapine Fumarate [Seroquel] 150 mg PO HS 04/30/18 12/27/18 Ranitidine HCl [Acid Dynamometer Tuner] 150 mg PO BID 04/30/18 12/27/18 Sennosides [Senna] 8.6 mg PO BID PRN 04/30/18 12/27/18 Sertraline [Zoloft] 50 mg PO QAM 04/30/18 12/27/18 Sertraline [Zoloft] 100 mg PO HS 04/30/18 12/27/18 Topiramate [Topamax] 200 mg PO BID 04/30/18 12/27/18 chlorproMAZINE [Thorazine] 50 mg PO TID 04/30/18 12/27/18 hydrOXYzine HCl [Hydroxyzine HCl] 25 mg PO HS 04/30/18 12/27/18 metFORMIN [Glucophage] 1,000 mg PO BIDWM 04/30/18 12/27/18 Sitagliptin Phosphate [Januvia] 50 mg PO DAILY 12/27/18 12/27/18 Previous Rx's Medication Instructions Recorded Cefdinir [Omnicef] 300 mg PO BID #10 capsule 05/02/18 Doxycycline 100 mg PO BID #10 capsule 05/02/18 Gabapentin [Neurontin] 800 mg PO BID #30 tablet 05/02/18 Tramadol HCl [Ultram] 50 mg PO Q6H 10 Days #20 tablet 05/02/18 Ascorbic Acid [Vitamin C] 500 mg PO DAILY #30 tablet 12/27/18 Ferrous Sulfate [Iron] 325 mg PO DAILY #30 tablet 12/27/18 Folic Acid 1 mg PO DAILY #30 tablet 12/27/18 Allergies Allergy/AdvReac Type Severity Reaction Status Date / Time acetaminophen Allergy Nausea Verified 12/27/18 11:50 [From Darvocet-N] Cyclobenzaprine Allergy Nausea Verified 12/27/18 11:50 [From Flexeril] propoxyphene Allergy Nausea Verified 12/27/18 11:50 [From Darvocet-N] Sulfa (Sulfonamide Allergy Nausea Verified 12/27/18 11:50 Antibiotics) Past Medical History - Past Medical History Medical history: Reports: cancer, diabetes, hypertension Psychiatric history: Reports: anxiety, bipolar, depression - Social History Smoking Status: Former smoker Smokeless Tobacco Status: No Alcohol use: Reports: none Drug use: Reports: none Physical Exam - General Limitations: no limitations General appearance: alert, in no apparent distress Course Vital Signs Temperature 103.9 F H 01/20/19 03:33 Pulse Rate 141 01/20/19 03:33 Respiratory Rate 40 01/20/19 03:33 Blood Pressure 151/89 01/20/19 03:33 O2 Sat by Pulse Oximetry 100 01/20/19 03:33 Temperature 103.9 F H 01/20/19 03:33 Pulse Rate 124 01/20/19 04:20 Respiratory Rate 27 01/20/19 04:20 Blood Pressure 159/92 01/20/19 04:20 O2 Sat by Pulse Oximetry 100 01/20/19 04:20 Oxygen Delivery Oxygen Delivery Non Rebreather Mask Medical Decision Making - Lab Data Result diagrams: 01/20/19 04:03 Lab Results 01/20/19 01/20/19 01/20/19 Range/Units 04:03 04:03 04:03 Sodium 139 (136-145) mEq/L Potassium 4.1 (3.5-5.1) mEq/L Chloride 103 (98-107) mEq/L Carbon Dioxide 22 L (23-29) mEq/L BUN 10 (6-20) mg/dL Creatinine 0.99 (0.70-1.30) mg/dL Est GFR ( Amer) > 60 (> 60) Est GFR (Non-Af Amer) > 60 (> 60) BUN/Creatinine Ratio 10 (6-26) Glucose 344 H (70-105) mg/dL Calculated Osmolality 301 H (280-300) Lactic Acid 3.8 H (0.5-2.2) mmol/L Calcium 10.3 (8.6-10.3) mg/dL Phosphorus 3.3 (2.7-4.5) mg/dL Magnesium 1.5 L (1.6-2.6) mg/dL Total Bilirubin 0.6 (0.3-1.0) mg/dL Direct Bilirubin 0.2 (0.0-0.2) mg/dL Indirect Bilirubin 0.4 (0.0-1.2) mg/dL AST 50 H (13-39) Units/L ALT 40 (7-52) Units/L Alkaline Phosphatase 157 H (34-104) Units/L Troponin I < 0.03 (< 0.04) ng/mL Serum Total Protein 9.0 H (6.4-8.9) g/dL Albumin 4.5 (3.5-5.7) g/dL Globulin 4.5 H (2.4-3.5) g/dL Albumin/Globulin Ratio 1.0 L (1.1-2.2) Urine Color (Yellow) Urine Clarity (Clear) Urine pH (5.0-8.0) pH Units Ur Specific [place] (1.010-1.025) Urine Protein (Neg-Trace) mg/dL Urine Glucose (UA) (Normal) mg/dL Urine Ketones (Negative) mg/dL Urine Blood (Negative) Urine Nitrite (Negative) Urine Bilirubin (Negative) Urine Urobilinogen (Normal) mg/dL Ur Leukocyte Esterase (Negative) Ur Culture Indicated? (NO) 01/20/19 Range/Units 04:40 Sodium (136-145) mEq/L Potassium (3.5-5.1) mEq/L Chloride (98-107) mEq/L Carbon Dioxide (23-29) mEq/L BUN (6-20) mg/dL Creatinine (0.70-1.30) mg/dL Est GFR ( Amer) (> 60) Est GFR (Non-Af Amer) (> 60) BUN/Creatinine Ratio (6-26) Glucose (70-105) mg/dL Calculated Osmolality (280-300) Lactic Acid (0.5-2.2) mmol/L Calcium (8.6-10.3) mg/dL Phosphorus (2.7-4.5) mg/dL Magnesium (1.6-2.6) mg/dL Total Bilirubin (0.3-1.0) mg/dL Direct Bilirubin (0.0-0.2) mg/dL Indirect Bilirubin (0.0-1.2) mg/dL AST (13-39) Units/L ALT (7-52) Units/L Alkaline Phosphatase (34-104) Units/L Troponin I (< 0.04) ng/mL Serum Total Protein (6.4-8.9) g/dL Albumin (3.5-5.7) g/dL Globulin (2.4-3.5) g/dL Albumin/Globulin Ratio (1.1-2.2) Urine Color Yellow (Yellow) Urine Clarity Clear (Clear) Urine pH 6.0 (5.0-8.0) pH Units Ur Specific [place] 1.018 (1.010-1.025) Urine Protein Negative (Neg-Trace) mg/dL Urine Glucose (UA) 500 H (Normal) mg/dL Urine Ketones Negative (Negative) mg/dL Urine Blood Negative (Negative) Urine Nitrite Negative (Negative) Urine Bilirubin Negative (Negative) Urine Urobilinogen Normal (Normal) mg/dL Ur Leukocyte Esterase Negative (Negative) Ur Culture Indicated? NO (NO) Attestation Statement - Attestation Attestation: I have seen this patient with the resident physician, I have personally evaluated this patient. I had reviewed the chart and document dictation by the resident physician and aM in agreement with the information documented by the resident physician. Please see documentation by the resident physician for complete chart including past medical history, family medical history, review of systems, current history and physical and laboratory and imaging studies. I was present for all procedures, provided direct supervision for all procedures, was present for the entirety of all procedures and provided direct guidance during the procedures. Please see documentation by the resident physician for any procedures performed. Patient presented emergency department with chief complaint of shortness of breath and chest pain, with documented hypoxemia and tachycardia at the [facility], has a history of aspiration past but he refuses to follow his dietary restrictions or utilize thickened liquids and there was concern about aspiration. Patient found to have a rectal temperature 103.9, with tachycardia 140 upon arrival, with noted tachypnea, complaining of pleuritic sharp chest pain and shortness of breath and feeling well. EKG was sinus tachycardia, no evidence of obvious acute ischemia or pericarditis, hyperkalemia, or significant abnormal interval, or significant change from previous apart from increased rate, rate related increase in borderline T-wave inversions was noted. Chest x-ray as interpreted by radiology showed no acute findings. Patient had IVs established, 30 mL/kg fluids were initiated for concerns for sepsis, IV antibiotics were initiated upon arrival. Secondary to tachycardia chest pain shortness of breath tachypnea and hypoxia, CT was ordered, CT showed no pulmonary embolism as interpreted by radiology although somewhat limited by motion, with findings concerning for potential infectious abnormality. Lactic acid was elevated at 3.8. Renal panel is within acceptable limits. Cardiac enzymes were negative. Patient was admitted to the hospital for further management of pneumosepsis. Total critical care time as provided by myself excluding any procedures performed was 30 minutes.
[2019-01-20 06:18] LABS: Basophils % 0.3 %; Eosinophils % 0.6 %; Hematocrit 49.6 % (37.5-50.1); Hemoglobin 15.4 g/dL (12.9-16.9); Immature Granulocytes % 0.2 % (0-4); Lymphocytes # 0.7 K/mcL (0.6-4.6); Lymphocytes % 11.8 %; Mean Corpuscular Hemoglobin 25.2 pg (28.0-33.3); Mean Corpuscular Volume 81.3 fL (83.0-100.0); Monocytes # 0.2 K/mcL (0.0-1.3); Monocytes % 3.5 %; Neutrophils # 5.3 K/mcL (1.6-8.9); Red Cell Distribution Width 18.1 % (11.5-14.5); Segmented Neutrophils % 83.6 %
[2019-01-20 06:35] LABS: INR 1.2; Prothrombin Time 13.5 Seconds (9.4-12.1)
[2019-01-20] MEDS ORDERED: 0.9 % Sodium Chloride 1,000 ML IVC SCH (06:45)
[2019-01-20 07:03] LABS: Platelet Count 93 K/mcL (140-400)
[2019-01-20] MEDS ORDERED: Naloxone 0.4 MG/ML INJ IVP PRN (07:27)
[2019-01-20] MEDS ORDERED: Baclofen 10 MG TABLET PO PRN (07:35)
[2019-01-20] MEDS ORDERED: Dextrose Gel 15 GM/37.5 ML TUBE PO PRN ×2 (07:40)
[2019-01-20] MEDS ORDERED: D5% in Water 1,000 ML IVC PRN (07:40)
[2019-01-20] MEDS ORDERED: *HR* Dextrose 50 % in Water (Syg) 50 ML SYRINGE IVP PRN (07:40)
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
[2019-01-20] MEDS ORDERED: *HR* LORazepam 2 MG/ML VIAL IVP ONE (09:29)
[2019-01-20 11:24] LABS: Troponin I 0.05 ng/mL (< 0.04)
[2019-01-20 12:02] LABS: Estimated Average Glucose 240 mg/dl
[2019-01-20] MEDS: Insulin LISPRO 300 UNITS/3 ML VIAL SQ SCH ×2 (13:11→18:22)
[2019-01-20 16:30] LABS: Troponin I 0.04 ng/mL (< 0.04)
[2019-01-20] MEDS: Piperacillin/Tazobactam 3.375 GM in 0.9 % Sodium Chloride Mini Bag 100 ML IVPB SCH (18:32)
[2019-01-20] MEDS: 0.9 % Sodium Chloride 1,000 ML IVC SCH (18:33)
[2019-01-20] MEDS: Insulin DETEMIR 100 UNIT/ML X5UNITS SQ SCH (22:40)
[2019-01-20] MEDS: hydrOXYzine pamoate 25 MG CAPSULE PO SCH (22:40)
[2019-01-20] MEDS: Famotidine 20 MG TABLET PO SCH (22:41)
[2019-01-20] MEDS: Topiramate 100 MG TABLET PO SCH (22:41)
[2019-01-20] MEDS: chlorproMAZINE 25 MG TABLET PO SCH (22:41)
[2019-01-20] MEDS: Gabapentin 400 MG CAPSULE PO SCH (22:41)
[2019-01-21] MEDS: Piperacillin/Tazobactam 3.375 GM in 0.9 % Sodium Chloride Mini Bag 100 ML IVPB SCH ×3 (02:12→16:58)
[2019-01-21] MEDS: 0.9 % Sodium Chloride 1,000 ML IVC SCH ×2 (04:33→16:59)
[2019-01-21] MEDS ORDERED: *HR* LORazepam 2 MG/ML VIAL IVP ONE (05:10)
[2019-01-21 06:09] LABS: Basophils % 0.3 %
[2019-01-21 06:11] LABS: Eosinophils # 0.2 K/mcL (0.0-0.6); Eosinophils % 1.7 %; Hematocrit 38.5 % (37.5-50.1); Immature Granulocytes % 0.6 % (0-4); Immature Platelets 2.4 % (1.1-6.1); Lymphocytes # 1.6 K/mcL (0.6-4.6); Lymphocytes % 18.2 %; Mean Corpuscular HGB Conc 31.2 g/dL (31.6-35.5); Mean Corpuscular Hemoglobin 25.2 pg (28.0-33.3); Mean Corpuscular Volume 80.9 fL (83.0-100.0); Monocytes # 0.4 K/mcL (0.0-1.3); Monocytes % 4.5 %; Neutrophils # 6.6 K/mcL (1.6-8.9); Red Blood Count 4.76 M/mcL (4.19-5.50); Red Cell Distribution Width 17.4 % (11.5-14.5); Segmented Neutrophils % 74.7 %
[2019-01-21 06:12] LABS: Platelet Count 97 K/mcL (140-400)
[2019-01-21 06:14] LABS: Platelet Estimate Decreased (Normal)
[2019-01-21 06:28] LABS: BUN/Creatinine Ratio 16 (6-26); Blood Urea Nitrogen 12 mg/dL (6-20); Calcium 8.9 mg/dL (8.6-10.3); Carbon Dioxide 20 mEq/L (23-29); Chloride 118 mEq/L (98-107); Glucose 189 mg/dL (70-105); Magnesium 1.9 mg/dL (1.6-2.6); Osmolality,Calculated 303 (280-300); Phosphorous 1.7 mg/dL (2.7-4.5); Potassium 3.6 mEq/L (3.5-5.1); Sodium 144 mEq/L (136-145); eGFR For Non-African Americans > 60 (> 60)
[2019-01-21] MEDS: Aspirin Enteric Coated 81 MG Tablet PO SCH ×2 (07:47→10:19)
[2019-01-21] MEDS: *HR* SitaGLIPtin 25 MG TABLET PO SCH ×2 (07:47→10:19)
[2019-01-21] MEDS: Gabapentin 400 MG CAPSULE PO SCH ×5 (07:48→22:34)
[2019-01-21] MEDS: Famotidine 20 MG TABLET PO SCH ×3 (07:48→22:34)
[2019-01-21] MEDS: chlorproMAZINE 25 MG TABLET PO SCH ×5 (07:49→22:34)
[2019-01-21] MEDS: Topiramate 100 MG TABLET PO SCH ×3 (07:49→22:34)
[2019-01-21 09:11] LABS: Thyroid Stimulating Hormone 0.823 mcIU/mL (0.340-5.600)
[2019-01-21] MEDS: Insulin LISPRO 300 UNITS/3 ML VIAL SQ SCH ×3 (10:19→17:20)
[2019-01-21] MEDS ORDERED: GuaiFENesin Liq 200 MG/10 ML UDC PO PRN (12:13)
[2019-01-21] MEDS ORDERED: Ketorolac 30 MG/ML VIAL IVP PRN (12:19)
[2019-01-21] MEDS ORDERED: E-Z-HD (BARIUM SULF) SUSPENSION PO ONE (15:35)
[2019-01-21] MEDS ORDERED: E-Z-PAQUE (BARIUM SULF) SUSP 1 BOTTLE PO ONE (15:35)
[2019-01-21] MEDS: Sennosides 8.6 MG TABLET PO SCH (22:34)
[2019-01-21] MEDS: Insulin DETEMIR 100 UNIT/ML X5UNITS SQ SCH (22:34)
[2019-01-21] MEDS: hydrOXYzine pamoate 25 MG CAPSULE PO SCH (23:00)
[2019-01-21] MEDS: (Diclofenac Sodium [Voltaren] 1 APPL) TP SCH (23:16)
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
[2019-01-22] MEDS: Piperacillin/Tazobactam 3.375 GM in 0.9 % Sodium Chloride Mini Bag 100 ML IVPB SCH ×3 (01:13→18:10)
[2019-01-22] MEDS: 0.9 % Sodium Chloride 1,000 ML IVC SCH (05:13)
[2019-01-22] MEDS: Sennosides 8.6 MG TABLET PO SCH ×2 (09:00→20:10)
[2019-01-22] MEDS: *HR* SitaGLIPtin 25 MG TABLET PO SCH (10:28)
[2019-01-22] MEDS: Aspirin Enteric Coated 81 MG Tablet PO SCH (10:28)
[2019-01-22] MEDS: Insulin LISPRO 300 UNITS/3 ML VIAL SQ SCH ×3 (10:28→17:17)
[2019-01-22] MEDS: Gabapentin 400 MG CAPSULE PO SCH ×3 (10:28→20:09)
[2019-01-22] MEDS: Topiramate 100 MG TABLET PO SCH ×2 (10:29→20:10)
[2019-01-22] MEDS: Folic Acid 1 MG TABLET PO SCH (10:29)
[2019-01-22] MEDS: chlorproMAZINE 25 MG TABLET PO SCH ×3 (10:29→20:10)
[2019-01-22] MEDS: Famotidine 20 MG TABLET PO SCH ×2 (10:29→20:09)
[2019-01-22] MEDS: (Diclofenac Sodium [Voltaren] 1 APPL) TP SCH ×2 (10:30→20:11)
[2019-01-22] MEDS: OXYCODONE Oral CONC 10 MG/0.5 ML ORAL.SYG SL PRN ×2 (12:12→19:32)
--- NOTE | 2019-01-22 16:05 | Electrocardiograph Report ---
[facility] Test Date: 2019-01-20 Pat Name: Paul Nelson Department: EXAM19 Room: 2NE17 Gender: M Direct Care Counselor: : 1975 Requested By: Hilda Hutchins Order Number: [id number] Reading MD: Atif Mcintosh Measurements Intervals [place] Rate: 136 P: 78 NV: 137 QRS: 118 QRSD: 97 T: 17 QT: 294 QTc: 443 Interpretive Statements Sinus tachycardia Consider right atrial enlargement Electronically Signed On 01-22-2019 16:04:22 EDT by Atif Mcintosh
[2019-01-22] MEDS: hydrOXYzine pamoate 25 MG CAPSULE PO SCH (20:09)
[2019-01-22] MEDS: Insulin DETEMIR 100 UNIT/ML X5UNITS SQ SCH (20:11)
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
[2019-01-23] MEDS: 0.9 % Sodium Chloride 1,000 ML IVC SCH (00:45)
[2019-01-23] MEDS: Piperacillin/Tazobactam 3.375 GM in 0.9 % Sodium Chloride Mini Bag 100 ML IVPB SCH ×2 (00:46→10:08)
[2019-01-23] MEDS: Insulin LISPRO 300 UNITS/3 ML VIAL SQ SCH ×2 (08:27→12:29)
[2019-01-23] MEDS: Folic Acid 1 MG TABLET PO SCH (10:09)
[2019-01-23] MEDS: OXYCODONE Oral CONC 10 MG/0.5 ML ORAL.SYG SL PRN (10:09)
[2019-01-23] MEDS: Aspirin Enteric Coated 81 MG Tablet PO SCH (10:09)
[2019-01-23] MEDS: (Diclofenac Sodium [Voltaren] 1 APPL) TP SCH (10:09)
[2019-01-23] MEDS: Sennosides 8.6 MG TABLET PO SCH (10:09)
[2019-01-23] MEDS: *HR* SitaGLIPtin 25 MG TABLET PO SCH (10:09)
[2019-01-23] MEDS: chlorproMAZINE 25 MG TABLET PO SCH (10:09)
[2019-01-23] MEDS: Famotidine 20 MG TABLET PO SCH (10:09)
[2019-01-23] MEDS: Topiramate 100 MG TABLET PO SCH (10:09)
[2019-01-23] MEDS: Gabapentin 400 MG CAPSULE PO SCH (10:09)
[2019-01-23 11:58] VITALS: BP 126/82
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
== END 2019-01-23 15:40 | DRG 189 ==
LOC: 2NNU 03:28 → EMEROOARM 03:28 → 2NENU 07:11 → SUATTDRO 07:28 → 2NENU 07:55
PROVIDERS: ADMIT Internal Medicine; ATTEND Internal Medicine

== ENCOUNTER 2019-03-08 13:13 | Inpatient (IN) ==
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
[2019-03-08 13:44] LABS: Bilirubin,Urine Negative (Negative); Blood,Urine Negative (Negative); Clarity,Urine Clear (Clear); Color,Urine Yellow (Yellow); Glucose,Urine (UA) >=1000 mg/dL (Normal); Ketones,Urine Negative (Negative); Leukocyte Esterase,Urine Negative (Negative); Nitrite,Urine Negative (Negative); Protein,Urine Negative (Neg-Trace); Specific Gravity,Urine 1.009 (1.010-1.025); Urobilinogen,Urine Normal (Normal)
[2019-03-08 14:05] LABS: Amphetamine Screen,Urine Negative ng/mL (Cutoff=1000); Barbiturate Screen,Urine Negative ng/mL (Cutoff=200); Benzodiazepines Screen,Urine Negative ng/mL (Cutoff=200); Cannabinoid Screen,Urine Negative ng/mL (Cutoff = 50); Cocaine Screen,Urine Negative ng/mL (Cutoff= 300); Opiate Screen,Urine Negative ng/mL (Cutoff=300); Phencyclidine Screen,Urine Negative ng/mL (Cutoff=25)
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
[2019-03-08 15:19] LABS: INR 1.3; Prothrombin Time 14.5 Seconds (9.4-12.1)
[2019-03-08 15:22] LABS: Activated Partial Thrombo Time 43.7 Seconds (26.0-36.0)
[2019-03-08 15:27] LABS: Alanine Aminotransferase 30 Units/L (7-52); Albumin 3.9 g/dL (3.5-5.7); Alkaline Phosphatase 106 Units/L (34-104); Aspartate Amino Transferase 37 Units/L (13-39); BUN/Creatinine Ratio 11 (6-26); Bilirubin,Direct 0.1 mg/dL (0.0-0.2); Bilirubin,Indirect 0.3 mg/dL (0.0-1.2); Bilirubin,Total 0.4 mg/dL (0.3-1.0); Blood Urea Nitrogen 9 mg/dL (6-20); Calcium 9.8 mg/dL (8.6-10.3); Carbon Dioxide 21 mEq/L (23-29); Chloride 109 mEq/L (98-107); Creatine Kinase 31 Units/L (30-223); Ethanol < 10 mg/dL (Less than 10); Globulin 3.9 g/dL (2.4-3.5); Glucose 304 mg/dL (70-105); Osmolality,Calculated 298 (280-300); Potassium 4.4 mEq/L (3.5-5.1); Sodium 139 mEq/L (136-145); Total Protein 7.8 g/dL (6.4-8.9); Troponin I < 0.03 ng/mL (< 0.04); eGFR For African Americans > 60 (> 60); eGFR For Non-African Americans > 60 (> 60)
[2019-03-08] MEDS ORDERED: 0.9 % Sodium Chloride 1,000 ML IVC ONE (15:28)
[2019-03-08] MEDS ORDERED: Ondansetron ODT 4 MG TAB.RAPDIS SL ONE (15:28)
[2019-03-08] MEDS ORDERED: Ondansetron 4 MG/2 ML VIAL IVP ONE (15:28)
[2019-03-08] MEDS ORDERED: Isovue-370 500 ML BOTTLE IVP ONE (15:30)
[2019-03-08] MEDS ORDERED: Lactulose Oral Soln 20 GM/30 ML UDC PO ONE (15:38)
[2019-03-08 15:41] LABS: Thyroid Stimulating Hormone 1.465 mcIU/mL (0.340-5.600)
[2019-03-08 15:44] LABS: Acetaminophen < 10 mcg/mL (10-20); Salicylate < 2.5 mg/dL (15.0-30.0)
[2019-03-08] MEDS ORDERED: Naloxone 0.4 MG/ML INJ IVP PRN (17:37)
[2019-03-08] MEDS ORDERED: Ondansetron 4 MG/2 ML VIAL IVP PRN (17:37)
[2019-03-08] MEDS ORDERED: *HR* Dextrose 50 % in Water (Syg) 50 ML SYRINGE IVP PRN (17:39)
[2019-03-08] MEDS ORDERED: D5% in Water 1,000 ML IVC PRN (17:39)
[2019-03-08] MEDS ORDERED: Dextrose Gel 15 GM/37.5 ML TUBE PO PRN ×2 (17:39)
[2019-03-08] MEDS ORDERED: GuaiFENesin Liq 200 MG/10 ML UDC PO PRN (18:01)
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
[2019-03-08 18:26] LABS: Basophils % 0.3 %; Immature Granulocytes % 0.3 % (0-4); Mean Corpuscular Volume 80.2 fL (83.0-100.0); Monocytes % 7.1 %
[2019-03-08 18:28] LABS: Eosinophils % 0.3 %; Hemoglobin 12.4 g/dL (12.9-16.9); Lymphocytes # 0.9 K/mcL (0.6-4.6); Lymphocytes % 9.6 %; Mean Corpuscular HGB Conc 31.8 g/dL (31.6-35.5); Mean Corpuscular Hemoglobin 25.5 pg (28.0-33.3); Monocytes # 0.7 K/mcL (0.0-1.3); Neutrophils # 8.1 K/mcL (1.6-8.9); Red Blood Count 4.86 M/mcL (4.19-5.50); Red Cell Distribution Width 16.3 % (11.5-14.5); Segmented Neutrophils % 82.4 %; White Blood Count 9.8 K/mcL (4.3-11.1)
[2019-03-08] MEDS: Aspirin 81 MG TAB.CHEW PO SCH (19:38)
[2019-03-08] MEDS ORDERED: Insulin DETEMIR 100 UNIT/ML X5UNITS SQ SCH (21:00)
[2019-03-08] MEDS: Insulin LISPRO 300 UNITS/3 ML VIAL SQ SCH ×2 (21:51→23:54)
[2019-03-08] MEDS: 0.9 % Sodium Chloride 1,000 ML IVC SCH (21:56)
[2019-03-08] MEDS: Famotidine 20 MG TABLET PO SCH (21:57)
[2019-03-08] MEDS: Topiramate 100 MG TABLET PO SCH (21:57)
[2019-03-08] MEDS: *HR* LORazepam 0.5 MG TABLET PO SCH (21:57)
[2019-03-08] MEDS: Piperacillin/Tazobactam 3.375 GM in 0.9 % Sodium Chloride Mini Bag 100 ML IVPB SCH (21:58)
[2019-03-08] MEDS: Lactulose Oral Soln 20 GM/30 ML UDC PO SCH (21:58)
[2019-03-08] MEDS: Insulin DETEMIR 100 UNIT/ML X5UNITS SQ SCH (22:26)
[2019-03-08 23:47] LABS: Adenovirus Not Detected (Not Detect); Bordetella Pertussis Not Detected (Not Detect); Coronavirus 229E Not Detected (Not Detect); Coronavirus HKU1 Not Detected (Not Detect); Coronavirus NL63 Not Detected (Not Detect); Coronavirus OC43 Not Detected (Not Detect); Human Metapneumovirus Not Detected (Not Detect); Human Rhinovirus/Enterovirus Not Detected (Not Detect); Influenza A Subtype 2009 H1 Not Detected (Not Detect); Influenza A Untypeable Not Detected (Not Detect); Influenza B Not Detected (Not Detect); Parainfluenza Virus 1 Not Detected (Not Detect); Parainfluenza Virus 2 Not Detected (Not Detect); Parainfluenza Virus 3 Not Detected (Not Detect); Parainfluenza Virus 4 Not Detected (Not Detect); Respiratory Syncytial Virus Not Detected (Not Detect)
[2019-03-08 23:48] LABS: Chlamydophila pneumoniae Not Detected (Not Detect); Mycoplasma pneumoniae Not Detected (Not Detect)
[2019-03-09] MEDS: Piperacillin/Tazobactam 3.375 GM in 0.9 % Sodium Chloride Mini Bag 100 ML IVPB SCH ×3 (05:34→22:49)
[2019-03-09] MEDS: *HR* Heparin 5,000 UNIT/ML VIAL SQ SCH ×2 (05:35→20:21)
[2019-03-09] MEDS: Insulin LISPRO 300 UNITS/3 ML VIAL SQ SCH ×4 (05:50→23:50)
[2019-03-09 06:10] LABS: Immature Granulocytes % 0.3 % (0-4); Red Cell Distribution Width 16.6 % (11.5-14.5)
[2019-03-09 06:12] LABS: Basophils % 0.3 %; Eosinophils # 0.2 K/mcL (0.0-0.6); Eosinophils % 2.8 %; Hematocrit 35.9 % (37.5-50.1); Hemoglobin 11.1 g/dL (12.9-16.9); Lymphocytes # 2.2 K/mcL (0.6-4.6); Lymphocytes % 28.2 %; Mean Corpuscular HGB Conc 30.9 g/dL (31.6-35.5); Mean Corpuscular Hemoglobin 25.1 pg (28.0-33.3); Monocytes # 0.5 K/mcL (0.0-1.3); Monocytes % 6.3 %; Neutrophils # 4.9 K/mcL (1.6-8.9); Red Blood Count 4.43 M/mcL (4.19-5.50); Segmented Neutrophils % 62.1 %; White Blood Count 7.9 K/mcL (4.3-11.1)
[2019-03-09 06:22] LABS: Alanine Aminotransferase 25 Units/L (7-52); Albumin 3.4 g/dL (3.5-5.7); Alkaline Phosphatase 84 Units/L (34-104); Aspartate Amino Transferase 33 Units/L (13-39); BUN/Creatinine Ratio 14 (6-26); Bilirubin,Total 0.5 mg/dL (0.3-1.0); Blood Urea Nitrogen 11 mg/dL (6-20); Calcium 9.3 mg/dL (8.6-10.3); Carbon Dioxide 20 mEq/L (23-29); Chloride 117 mEq/L (98-107); Globulin 3.5 g/dL (2.4-3.5); Glucose 114 mg/dL (70-105); Magnesium 1.8 mg/dL (1.6-2.6); Osmolality,Calculated 290 (280-300); Phosphorous 3.1 mg/dL (2.7-4.5); Potassium 3.7 mEq/L (3.5-5.1); Sodium 140 mEq/L (136-145); Total Protein 6.9 g/dL (6.4-8.9); eGFR For African Americans > 60 (> 60); eGFR For Non-African Americans > 60 (> 60)
[2019-03-09 06:45] LABS: Hepatitis B Surface Antigen Nonreactive (Nonreactive)
[2019-03-09 07:13] LABS: Hepatitis C Virus Antibody Nonreactive (Nonreactive)
[2019-03-09 07:15] LABS: Hepatitis A Antibody IgM Nonreactive (Nonreactive); Hepatitis B Core IgM Nonreactive (Nonreactive)
[2019-03-09 07:27] LABS: Mean Platelet Volume 9.9 fL (9.4-12.4)
[2019-03-09] MEDS ORDERED: Insulin DETEMIR 100 UNIT/ML X5UNITS SQ SCH (09:00)
[2019-03-09] MEDS: Aspirin 81 MG TAB.CHEW PO SCH (10:07)
[2019-03-09] MEDS: Topiramate 100 MG TABLET PO SCH ×2 (10:07→20:22)
[2019-03-09] MEDS: Famotidine 20 MG TABLET PO SCH ×2 (10:07→20:22)
[2019-03-09] MEDS: *HR* LORazepam 0.5 MG TABLET PO SCH ×3 (10:07→20:21)
[2019-03-09] MEDS: Folic Acid 1 MG TABLET PO SCH (10:07)
[2019-03-09] MEDS: Lactulose Oral Soln 20 GM/30 ML UDC PO SCH ×3 (10:08→16:43)
[2019-03-09] MEDS: Aspirin Enteric Coated 81 MG Tablet PO SCH (10:08)
[2019-03-09] MEDS ORDERED: *HR* OxyCODONE/APAP 5/325 TABLET PO ONE (10:34)
[2019-03-09] MEDS: Insulin DETEMIR 100 UNIT/ML X5UNITS SQ SCH ×2 (11:03→20:35)
[2019-03-09] MEDS: 0.9 % Sodium Chloride 1,000 ML IVC SCH (13:14)
[2019-03-09] MEDS ORDERED: Acetaminophen 325 MG TABLET PO PRN (14:52)
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
[2019-03-09] MEDS: Gabapentin 400 MG CAPSULE PO SCH ×2 (16:00→20:23)
[2019-03-09] MEDS: Diclofenac Sodium [Voltaren] 1 APPL TP SCH (20:24)
[2019-03-10 04:25] LABS: Monocytes % 6.7 %; Red Cell Distribution Width 16.9 % (11.5-14.5)
[2019-03-10 04:27] LABS: Basophils % 0.5 %; Eosinophils # 0.3 K/mcL (0.0-0.6); Eosinophils % 5.2 %; Hematocrit 35.7 % (37.5-50.1); Hemoglobin 11.3 g/dL (12.9-16.9); Immature Granulocytes % 0.2 % (0-4); Lymphocytes % 30.2 %; Mean Corpuscular HGB Conc 31.7 g/dL (31.6-35.5); Mean Corpuscular Hemoglobin 25.7 pg (28.0-33.3); Mean Corpuscular Volume 81.1 fL (83.0-100.0); Monocytes # 0.4 K/mcL (0.0-1.3); Neutrophils # 3.8 K/mcL (1.6-8.9); Segmented Neutrophils % 57.2 %; White Blood Count 6.6 K/mcL (4.3-11.1)
[2019-03-10 04:44] LABS: BUN/Creatinine Ratio 12 (6-26); Blood Urea Nitrogen 10 mg/dL (6-20); Calcium 8.8 mg/dL (8.6-10.3); Carbon Dioxide 20 mEq/L (23-29); Chloride 118 mEq/L (98-107); Glucose 64 mg/dL (70-105); Osmolality,Calculated 295 (280-300); Phosphorous 2.9 mg/dL (2.7-4.5); Potassium 3.4 mEq/L (3.5-5.1); Sodium 144 mEq/L (136-145); eGFR For African Americans > 60 (> 60); eGFR For Non-African Americans > 60 (> 60)
[2019-03-10] MEDS: Piperacillin/Tazobactam 3.375 GM in 0.9 % Sodium Chloride Mini Bag 100 ML IVPB SCH ×3 (05:33→21:42)
[2019-03-10] MEDS: *HR* Heparin 5,000 UNIT/ML VIAL SQ SCH ×2 (05:38→17:21)
[2019-03-10] MEDS: Insulin LISPRO 300 UNITS/3 ML VIAL SQ SCH ×3 (07:59→18:53)
[2019-03-10] MEDS: Gabapentin 400 MG CAPSULE PO SCH ×3 (09:32→21:38)
[2019-03-10] MEDS: *HR* LORazepam 0.5 MG TABLET PO SCH ×3 (09:32→21:38)
[2019-03-10] MEDS: Folic Acid 1 MG TABLET PO SCH (09:32)
[2019-03-10] MEDS: Lactulose Oral Soln 20 GM/30 ML UDC PO SCH ×3 (09:32→21:40)
[2019-03-10] MEDS: Famotidine 20 MG TABLET PO SCH ×2 (09:32→21:37)
[2019-03-10] MEDS: Aspirin Enteric Coated 81 MG Tablet PO SCH (09:32)
[2019-03-10] MEDS: Topiramate 100 MG TABLET PO SCH ×2 (09:32→21:38)
[2019-03-10] MEDS: Aspirin 81 MG TAB.CHEW PO SCH (09:33)
[2019-03-10] MEDS: Diclofenac Sodium [Voltaren] 1 APPL TP SCH ×2 (09:33→21:40)
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
[2019-03-10] MEDS: Insulin DETEMIR 100 UNIT/ML X5UNITS SQ SCH ×2 (12:56→21:43)
[2019-03-10] MEDS: *HR* OxyCODONE Immed Rel 5 MG TABLET PO PRN ×2 (12:57→18:53)
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
[2019-03-10] MEDS: chlorproMAZINE 25 MG TABLET PO SCH ×2 (17:20→21:38)
[2019-03-10] MEDS ORDERED: hydrOXYzine pamoate 25 MG CAPSULE PO SCH (21:00)
[2019-03-10] MEDS ORDERED: Insulin LISPRO 300 UNITS/3 ML VIAL SQ SCH (21:00)
[2019-03-11] MEDS: Piperacillin/Tazobactam 3.375 GM in 0.9 % Sodium Chloride Mini Bag 100 ML IVPB SCH (04:56)
[2019-03-11] MEDS: *HR* Heparin 5,000 UNIT/ML VIAL SQ SCH (04:57)
[2019-03-11 07:13] LABS: Basophils % 0.8 %; Immature Granulocytes % 0.5 % (0-4); Mean Corpuscular Volume 80.8 fL (83.0-100.0); Red Cell Distribution Width 16.9 % (11.5-14.5)
[2019-03-11 07:15] LABS: Basophils # 0.1 K/mcL (0.0-0.2); Eosinophils # 0.4 K/mcL (0.0-0.6); Eosinophils % 5.7 %; Hematocrit 36.7 % (37.5-50.1); Hemoglobin 11.5 g/dL (12.9-16.9); Immature Platelets 1.5 % (1.1-6.1); Lymphocytes # 2.2 K/mcL (0.6-4.6); Lymphocytes % 33.8 %; Mean Corpuscular HGB Conc 31.3 g/dL (31.6-35.5); Mean Corpuscular Hemoglobin 25.3 pg (28.0-33.3); Mean Platelet Volume 11.3 fL (9.4-12.4); Monocytes # 0.5 K/mcL (0.0-1.3); Monocytes % 7.6 %; Platelet Count 120 K/mcL (140-400); Red Blood Count 4.54 M/mcL (4.19-5.50); Segmented Neutrophils % 51.6 %; White Blood Count 6.5 K/mcL (4.3-11.1)
[2019-03-11 07:17] LABS: Neutrophils # 3.4 K/mcL (1.6-8.9)
[2019-03-11 07:34] LABS: BUN/Creatinine Ratio 10 (6-26); Blood Urea Nitrogen 8 mg/dL (6-20); Calcium 9.2 mg/dL (8.6-10.3); Carbon Dioxide 19 mEq/L (23-29); Chloride 116 mEq/L (98-107); Glucose 79 mg/dL (70-105); Osmolality,Calculated 297 (280-300); Phosphorous 3.9 mg/dL (2.7-4.5); Potassium 3.6 mEq/L (3.5-5.1); Sodium 145 mEq/L (136-145); eGFR For African Americans > 60 (> 60); eGFR For Non-African Americans > 60 (> 60)
[2019-03-11] MEDS: Insulin LISPRO 300 UNITS/3 ML VIAL SQ SCH ×2 (07:59→12:19)
[2019-03-11] MEDS: *HR* LORazepam 0.5 MG TABLET PO SCH (08:44)
[2019-03-11] MEDS: Lactulose Oral Soln 20 GM/30 ML UDC PO SCH (08:44)
[2019-03-11] MEDS: Famotidine 20 MG TABLET PO SCH (08:44)
[2019-03-11] MEDS: Aspirin Enteric Coated 81 MG Tablet PO SCH (08:44)
[2019-03-11] MEDS: Gabapentin 400 MG CAPSULE PO SCH (08:45)
[2019-03-11] MEDS: Topiramate 100 MG TABLET PO SCH (08:45)
[2019-03-11] MEDS: Folic Acid 1 MG TABLET PO SCH (08:45)
[2019-03-11] MEDS: chlorproMAZINE 25 MG TABLET PO SCH (08:46)
[2019-03-11] MEDS: *HR* OxyCODONE Immed Rel 5 MG TABLET PO PRN (08:46)
[2019-03-11] MEDS: Diclofenac Sodium [Voltaren] 1 APPL TP SCH (08:46)
[2019-03-11] MEDS: Insulin DETEMIR 100 UNIT/ML X5UNITS SQ SCH (08:58)
[2019-03-11] MEDS ORDERED: Doxycycline 100 MG CAPSULE PO SCH (09:00)
[2019-03-11] MEDS ORDERED: cephALEXin 500 MG CAPSULE PO SCH (09:00)
[2019-03-11 11:42] VITALS: BP 120/73
--- NOTE | 2019-03-11 12:34 | Physician Discharge Referral ---
ExtendedCare Referral Info Transfer To: [place] - Diagnosis (1) Sepsis Priority: Primary Status: Acute (2) Left lower lobe pneumonia Priority: Primary Status: Acute (3) Cirrhosis Priority: Secondary Status: Chronic (4) Hyperglycemia due to type 2 diabetes mellitus Priority: Secondary Status: Resolved (5) Altered mental status Priority: Primary Status: Resolved (6) CVA (cerebral vascular accident) Priority: Secondary Status: Chronic (7) Diabetes mellitus Priority: Secondary Status: Chronic (8) Dysphagia Priority: Secondary Status: Chronic - Transfer Medications Prescriptions: LORazepam [Ativan] 0.5 mg PO BID PRN 1 Days #1 tablet PRN Reason: Anxiety Oxycodone HCl 5 mg PO QID 1 Days #1 tablet Home Medications: Aspirin Enteric Coated [Aspirin EC] 81 mg PO DAILY 04/30/18 [History] Baclofen [Lioresal] 10 mg PO Q8H PRN 04/30/18 [History] Folic Acid 1 mg PO DAILY 04/30/18 [History] Guaifenesin [Tussin Mucus-Chest Congestion] 5 ml PO Q6H PRN 04/30/18 [History] Insulin Glargine,Hum.rec.anlog [Basaglar Kwikpen U-100] 60 unit SQ HS 04/30/18 [History] Insulin Glargine,Hum.rec.anlog [Basaglar Kwikpen U-100] 70 unit SQ DAILY 04/30/18 [History] Insulin LISPRO [HumaLOG] 2 - 25 units SQ TIDAC 04/30/18 [History] Multivitamin [One Daily Essential] 1 tab PO DAILY 04/30/18 [History] Quetiapine Fumarate [Seroquel] 50 mg PO QAM 04/30/18 [History] Ranitidine HCl [Acid Electronics Mechanic] 150 mg PO BID 04/30/18 [History] Topiramate [Topamax] 200 mg PO BID 04/30/18 [History] hydrOXYzine HCl [Hydroxyzine HCl] 25 mg PO HS 04/30/18 [History] metFORMIN [Glucophage] 1,000 mg PO BIDWM 04/30/18 [History] Ferrous Sulfate [Iron] 325 mg PO DAILY #30 tablet 12/27/18 [Rx] Diclofenac Sodium [Voltaren] 1 appl TD BID 01/20/19 [History] Gabapentin [Neurontin] 800 mg PO TID 01/20/19 [History] Ketoconazole Shampoo [Nizoral Shampoo] 1 appl TP SUTUFR 01/20/19 [History] Sitagliptin Phosphate [Januvia] 50 mg PO DAILY 03/08/19 [History] chlorproMAZINE [Thorazine] 25 mg PO TID 03/08/19 [History] Acetaminophen [Non-Aspirin] 650 mg PO Q4H PRN 03/09/19 [History] Ascorbic Acid [Vitamin C with Peyton Hips] 500 mg PO DAILY 03/09/19 [History] Quetiapine Fumarate [Seroquel] 125 mg PO HS 03/09/19 [History] Selenium Sulfide [Selrx] 1 appl TP MOTH 03/09/19 [History] Sertraline [Zoloft] 200 mg PO HS 03/09/19 [History] Doxycycline 100 mg PO BID #7 capsule 03/11/19 [Rx] LORazepam [Ativan] 0.5 mg PO BID PRN 1 Days #1 tablet 03/11/19 [Rx] Lactulose 20 gm PO TID udc 03/11/19 [Rx] Oxycodone HCl 5 mg PO QID 1 Days #1 tablet 03/11/19 [Rx] cephALEXin [Keflex] 500 mg PO QID #14 capsule 03/11/19 [Rx] Allergies/Adverse Reactions: Allergy/AdvReac Type Severity Reaction Status Date / Time acetaminophen Allergy Nausea Verified 12/27/18 11:50 [From Darvocet-N] Cyclobenzaprine Allergy Nausea Verified 12/27/18 11:50 [From Flexeril] latex Allergy See Verified 01/21/19 00:14 Comments Penicillins Allergy See Verified 01/21/19 00:14 Comments propoxyphene Allergy Nausea Verified 12/27/18 11:50 [From Darvocet-N] Sulfa (Sulfonamide Allergy Nausea Verified 12/27/18 11:50 Antibiotics) - Respiratory Orders Smoking Cessation: Smoking cessation has been advised. For more information, call the [place] Tobacco Quit Line at 0-806-APGB-NOW. CERTIFICATION: I certify that the transfer of the above named patient to an Extended Care Facility is necessary for the continuing treatment of the diagnosis listed. The above information is true and accurate reflection of patient's current condition. Confidential - Redisclosure prohibited without a patient's written consent.
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
[2019-03-11] MEDS ORDERED: Aminoglycoside Consult 1 EACH MC ONE (14:07)
--- NOTE | 2019-03-12 16:32 | Electrocardiograph Report ---
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
== END 2019-03-11 14:08 | DRG 871 ==
LOC: EMEROOARM 13:13 → 3BNU 18:24 → SUATTDRO 18:24 → 3BNU 19:57
PROVIDERS: ADMIT Internal Medicine Nephrology; ATTEND Internal Medicine

== ENCOUNTER 2019-04-10 00:13 | Inpatient (IN) ==
[2019-04-10] MEDS ORDERED: Piperacillin/Tazobactam 3.375 GM in Water for inj. (sterile) 20 ML IVP ONE (00:22)
[2019-04-10] MEDS ORDERED: 0.9 % Sodium Chloride 1,000 ML IVC ONE ×2 (00:22→03:11)
[2019-04-10] MEDS ORDERED: cefTRIAXone 1,000 MG in Water for inj. (sterile) 10 ML IVP ONE (00:35)
[2019-04-10] MEDS ORDERED: MetroNIDAZOLE 500 MG/100 ML 500 MG/100 ML BAG IVPB ONE (00:35)
--- NOTE | 2019-04-10 00:38 | Emergency Department Note ---
Disposition Clinical Impression: Severe sepsis Sepsis Qualifiers: Sepsis type: sepsis due to unspecified organism Qualified Code(s): A41.9 - Sepsis, unspecified organism Pneumonia Qualifiers: Pneumonia type: due to unspecified organism Laterality: unspecified laterality Lung location: unspecified part of lung Qualified Code(s): J18.9 - Pneumonia, unspecified organism Disposition: Admitted As Inpatient Condition: Fair Referrals: NONE,PCP [Primary Care Provider] - Forms: ED Satisfaction Letter Time of Disposition: 02:22 General Adult HPI - General Chief complaint: ED Fever Stated complaint: fever Time Seen by Provider: 04/10/19 00:16 Source: patient, EMS Mode of arrival: EMS Limitations: no limitations Nursing Notes Reviewed: Yes Vital Signs Reviewed: Yes - History of Present Illness HPI Narrative: Patient is a 43-year-old male that presents to the emergency department via EMS from [facility] facility due to concern for possible aspiration pneumonia. Patient states that he is posted be on a thickened liquid diet however he has been drinking water when he is not supposed to. Patient states that he feels like he has had some that have gone down the wrong tube. Patient states that he has had a little bit of a cough and has felt warm but otherwise is feeling okay. Patient denies any nausea vomiting or diarrhea. Patient states that he knows that he is not supposed to drink water but when against the recommendations and drink it on his own. Pain Scale: 5 - Related Data Home Medications Medication Instructions Recorded Confirmed Aspirin Enteric Coated [Aspirin EC] 81 mg PO DAILY 04/30/18 03/09/19 Baclofen [Lioresal] 10 mg PO Q8H PRN 04/30/18 03/09/19 Folic Acid 1 mg PO DAILY 04/30/18 03/09/19 Guaifenesin [Tussin Mucus-Chest 5 ml PO Q6H PRN 04/30/18 03/09/19 Congestion] Insulin Glargine,Hum.rec.anlog 60 unit SQ HS 04/30/18 03/09/19 [Basaglar Kwikpen U-100] Insulin Glargine,Hum.rec.anlog 70 unit SQ DAILY 04/30/18 03/09/19 [Basaglar Kwikpen U-100] Insulin LISPRO [HumaLOG] 2 - 25 units SQ TIDAC 04/30/18 03/09/19 Multivitamin [One Daily Essential] 1 tab PO DAILY 04/30/18 03/09/19 Quetiapine Fumarate [Seroquel] 50 mg PO QAM 04/30/18 03/09/19 Ranitidine HCl [Acid Ldr Nurse] 150 mg PO BID 04/30/18 03/09/19 Topiramate [Topamax] 200 mg PO BID 04/30/18 03/09/19 hydrOXYzine HCl [Hydroxyzine HCl] 25 mg PO HS 04/30/18 03/09/19 metFORMIN [Glucophage] 1,000 mg PO BIDWM 04/30/18 03/09/19 Diclofenac Sodium [Voltaren] 1 appl TD BID 01/20/19 03/09/19 Gabapentin [Neurontin] 800 mg PO TID 01/20/19 03/09/19 Ketoconazole Shampoo [Nizoral 1 appl TP SUTUFR 01/20/19 03/09/19 Shampoo] Sitagliptin Phosphate [Januvia] 50 mg PO DAILY 03/08/19 03/09/19 chlorproMAZINE [Thorazine] 25 mg PO TID 03/08/19 03/09/19 Acetaminophen [Non-Aspirin] 650 mg PO Q4H PRN 03/09/19 03/09/19 Ascorbic Acid [Vitamin C with Peyton 500 mg PO DAILY 03/09/19 03/09/19 Hips] Quetiapine Fumarate [Seroquel] 125 mg PO HS 03/09/19 03/09/19 Selenium Sulfide [Selrx] 1 appl TP MOTH 03/09/19 03/09/19 Sertraline [Zoloft] 200 mg PO HS 03/09/19 03/09/19 Previous Rx's Medication Instructions Recorded Ferrous Sulfate [Iron] 325 mg PO DAILY #30 tablet 12/27/18 Doxycycline 100 mg PO BID #7 capsule 03/11/19 Lactulose 20 gm PO TID udc 03/11/19 cephALEXin [Keflex] 500 mg PO QID #14 capsule 03/11/19 Allergies Allergy/AdvReac Type Severity Reaction Status Date / Time acetaminophen Allergy Nausea Verified 12/27/18 11:50 [From Darvocet-N] Cyclobenzaprine Allergy Nausea Verified 12/27/18 11:50 [From Flexeril] latex Allergy See Verified 01/21/19 00:14 Comments Penicillins Allergy See Verified 01/21/19 00:14 Comments propoxyphene Allergy Nausea Verified 12/27/18 11:50 [From Darvocet-N] Sulfa (Sulfonamide Allergy Nausea Verified 12/27/18 11:50 Antibiotics) All systems ED: reviewed and negative except as stated. Constitutional: Reports: fever Cardiovascular: Denies: chest pain Respiratory: Reports: cough. Denies: dyspnea Gastrointestinal: Denies: abdominal pain, vomiting Neurological: Denies: weakness, numbness, paresthesias Past Medical History - Past Medical History Medical history: Reports: cancer, diabetes, hypertension Psychiatric history: Reports: anxiety, bipolar, depression - Social History Smoking Status: Current every day smoker Smokeless Tobacco Status: No Alcohol use: Reports: none Drug use: Reports: none Physical Exam - General Limitations: no limitations General appearance: alert, in no apparent distress - Head Head exam: atraumatic, normocephalic - Eye Eye exam: Present: normal appearance, EOMI - Neck Neck exam: Present: normal inspection, full ROM, trachea midline - Respiratory Respiratory exam: Present: normal lung sounds bilaterally. Absent: respiratory distress, wheezes - Cardiovascular Cardiovascular exam: Present: normal rhythm, tachycardia, normal heart sounds, +S1, +S2 - Abdominal Exam Abdominal exam: Present: soft, Non-Tender, normal bowel sounds - Neurological Exam Neurological exam: Present: alert, oriented X3 - Psychiatric Psychiatric exam: Present: normal affect, normal mood - Skin Skin exam: Present: warm, dry, intact Course Vital Signs Temperature 102.8 F H 04/10/19 00:22 Pulse Rate 121 04/10/19 00:22 Respiratory Rate 18 04/10/19 00:22 Blood Pressure 171/108 04/10/19 00:22 O2 Sat by Pulse Oximetry 94 04/10/19 00:22 Temperature 102.8 F H 04/10/19 00:22 Pulse Rate 121 04/10/19 00:22 Respiratory Rate 18 04/10/19 00:22 Blood Pressure 171/108 04/10/19 00:22 O2 Sat by Pulse Oximetry 94 04/10/19 00:22 Oxygen Delivery Oxygen Delivery Room Air Medical Decision Making - MDM Narrative Medical decision making narrative: Due the patient presenting to the emergency department with reports of being febrile at the extended care facility and high likelihood of aspiration as well as the patient being tachycardic and febrile here in the ER the patient does meet sepsis criteria. Patient be started on broad-spectrum antibiotics, blood cultures will be obtained and 1 L fluid bolus will be given. I do not feel that this patient is currently in septic shock. Due to not having laboratory testing back at this time we are unable to determine whether or not the patient is in se alden sepsis. Patient is stable from a blood pressure standpoint. I do not feel that a full 30/kg boluses indicated at this time. Further laboratory testing will be obtained and the patient will be admitted to the hospital for likely sepsis secondary to pneumonia. Patient's chest x-ray was concerning for diffuse pneumonia. Patient was started on vancomycin, Flagyl and ceftriaxone. Patient has a penicillin allergy so is unable to be started on Unasyn or Zosyn for aspiration. This is the reason that Flagyl and ceftriaxone were selected for antibiotic coverage. Patient also had hyperglycemia but is not in DKA at this time. Patient had an elevated lactic acid of 3.4. A timed lactic acid was also ordered. Patient received 1 L of IV fluids. Patient will require admission to the hospital for further evaluation and management of his sepsis secondary to pneumonia. There is a high clinical suspicion that this is aspiration pneumonia. Called and spoke with the admitting hospitalist Dr. Ramirez and he has accepted to their service. Patient be admitted to the hospital at this time for further evaluation and management. - Medical Records Medical records reviewed: Yes I reviewed the patient's medical records. - Lab Data Lab results reviewed: Yes I reviewed the patient's lab results. Result diagrams: 04/10/19 00:52 04/10/19 00:52 Lab Results 04/10/19 04/10/19 04/10/19 Range/Units 00:50 00:52 00:52 WBC 8.3 (4.3-11.1) K/mcL RBC 4.48 (4.19-5.50) M/mcL Hgb 11.2 L (12.9-16.9) g/dL Hct 36.2 L (37.5-50.1) % MCV 80.8 L (83.0-100.0) fL MCH 25.0 L (28.0-33.3) pg MCHC 30.9 L (31.6-35.5) g/dL RDW 16.2 H (11.5-14.5) % Plt Count 113 L (140-400) K/mcL MPV TNP Immature Gran % 0.2 (0-4) % Seg Neutrophils % 83.3 % Lymphocytes % 10.1 % Monocytes % 5.6 % Eosinophils % 0.4 % Basophils % 0.4 % Neutrophils # 6.9 (1.6-8.9) K/mcL Lymphocytes # 0.8 (0.6-4.6) K/mcL Monocytes # 0.5 (0.0-1.3) K/mcL Eosinophils # 0.0 (0.0-0.6) K/mcL Basophils # 0.0 (0.0-0.2) K/mcL Platelet Estimate Decreased L (Normal) Clumped Platelets Few A (Not Present) Immature Plt Fraction 1.5 (1.1-6.1) % Sodium 136 (136-145) mEq/L Potassium 3.7 (3.5-5.1) mEq/L Chloride 109 H (98-107) mEq/L Carbon Dioxide 18 L (23-29) mEq/L BUN 9 (6-20) mg/dL Creatinine 1.00 (0.70-1.30) mg/dL Est GFR ( Amer) > 60 (> 60) Est GFR (Non-Af Amer) > 60 (> 60) BUN/Creatinine Ratio 9 (6-26) Glucose 313 H (70-105) mg/dL Calculated Osmolality 293 (280-300) Lactic Acid (0.5-2.2) mmol/L Calcium 9.0 (8.6-10.3) mg/dL Total Bilirubin 0.5 (0.3-1.0) mg/dL Direct Bilirubin 0.2 (0.0-0.2) mg/dL Indirect Bilirubin 0.3 (0.0-1.2) mg/dL AST 37 (13-39) Units/L ALT 25 (7-52) Units/L Alkaline Phosphatase 102 (34-104) Units/L Troponin I 0.03 (< 0.04) ng/mL Serum Total Protein 6.8 (6.4-8.9) g/dL Albumin 3.4 L (3.5-5.7) g/dL Globulin 3.4 (2.4-3.5) g/dL Albumin/Globulin Ratio 1.0 L (1.1-2.2) Urine Color Yellow (Yellow) Urine Clarity Clear (Clear) Urine pH 6.0 (5.0-8.0) pH Units Ur Specific [place] 1.011 (1.010-1.025) Urine Protein Negative (Neg-Trace) mg/dL Urine Glucose (UA) 100 H (Normal) mg/dL Urine Ketones Negative (Negative) mg/dL Urine Blood Negative (Negative) Urine Nitrite Negative (Negative) Urine Bilirubin Negative (Negative) Urine Urobilinogen Normal (Normal) mg/dL Ur Leukocyte Esterase Negative (Negative) Ur Culture Indicated? NO (NO) 04/10/19 Range/Units 00:52 WBC (4.3-11.1) K/mcL RBC (4.19-5.50) M/mcL Hgb (12.9-16.9) g/dL Hct (37.5-50.1) % MCV (83.0-100.0) fL MCH (28.0-33.3) pg MCHC (31.6-35.5) g/dL RDW (11.5-14.5) % Plt Count (140-400) K/mcL MPV Immature Gran % (0-4) % Seg Neutrophils % % Lymphocytes % % Monocytes % % Eosinophils % % Basophils % % Neutrophils # (1.6-8.9) K/mcL Lymphocytes # (0.6-4.6) K/mcL Monocytes # (0.0-1.3) K/mcL Eosinophils # (0.0-0.6) K/mcL Basophils # (0.0-0.2) K/mcL Platelet Estimate (Normal) Clumped Platelets (Not Present) Immature Plt Fraction (1.1-6.1) % Sodium (136-145) mEq/L Potassium (3.5-5.1) mEq/L Chloride (98-107) mEq/L Carbon Dioxide (23-29) mEq/L BUN (6-20) mg/dL Creatinine (0.70-1.30) mg/dL Est GFR ( Amer) (> 60) Est GFR (Non-Af Amer) (> 60) BUN/Creatinine Ratio (6-26) Glucose (70-105) mg/dL Calculated Osmolality (280-300) Lactic Acid 3.4 H (0.5-2.2) mmol/L Calcium (8.6-10.3) mg/dL Total Bilirubin (0.3-1.0) mg/dL Direct Bilirubin (0.0-0.2) mg/dL Indirect Bilirubin (0.0-1.2) mg/dL AST (13-39) Units/L ALT (7-52) Units/L Alkaline Phosphatase (34-104) Units/L Troponin I (< 0.04) ng/mL Serum Total Protein (6.4-8.9) g/dL Albumin (3.5-5.7) g/dL Globulin (2.4-3.5) g/dL Albumin/Globulin Ratio (1.1-2.2) Urine Color (Yellow) Urine Clarity (Clear) Urine pH (5.0-8.0) pH Units Ur Specific [place] (1.010-1.025) Urine Protein (Neg-Trace) mg/dL Urine Glucose (UA) (Normal) mg/dL Urine Ketones (Negative) mg/dL Urine Blood (Negative) Urine Nitrite (Negative) Urine Bilirubin (Negative) Urine Urobilinogen (Normal) mg/dL Ur Leukocyte Esterase (Negative) Ur Culture Indicated? (NO) - Radiology Data Radiology results reviewed: Yes I reviewed the patient's radiology results. Chest X-Ray 04/10/19 00:28 IMPRESSION: Low lung volume study showing bilateral airspace disease. Correlation for edema is recommended. Diffuse pneumonia is also possible. Follow-up is recommended, preferably with a PA and lateral study. D/ / Alyson Weeks Cha, MD / Alyson Weeks Cha, MD Interpreting Provider: Alyson Weeks Cha, MD - EKG Data EKG #1 EKG attestation: Yes I reviewed and interpreted this EKG. EKG results narrative: EKG shows sinus tachycardia at a rate of 190 beats from it, NM interval 142, QRS duration 99, QTC of 442. There is no evidence of STEMI on EKG. This is compared to previous EKG on 03/08/19.
[2019-04-10 00:59] LABS: Bilirubin,Urine Negative (Negative); Blood,Urine Negative (Negative); Clarity,Urine Clear (Clear); Color,Urine Yellow (Yellow); Glucose,Urine (UA) 100 mg/dL (Normal); Ketones,Urine Negative (Negative); Leukocyte Esterase,Urine Negative (Negative); Nitrite,Urine Negative (Negative); Protein,Urine Negative (Neg-Trace); Specific Gravity,Urine 1.011 (1.010-1.025); Urobilinogen,Urine Normal (Normal)
[2019-04-10 01:11] LABS: Eosinophils % 0.4 %; Monocytes % 5.6 %
[2019-04-10 01:13] LABS: Basophils % 0.4 %; Hematocrit 36.2 % (37.5-50.1); Hemoglobin 11.2 g/dL (12.9-16.9); Immature Granulocytes % 0.2 % (0-4); Immature Platelets 1.5 % (1.1-6.1); Lymphocytes # 0.8 K/mcL (0.6-4.6); Lymphocytes % 10.1 %; Mean Corpuscular HGB Conc 30.9 g/dL (31.6-35.5); Mean Corpuscular Volume 80.8 fL (83.0-100.0); Monocytes # 0.5 K/mcL (0.0-1.3); Neutrophils # 6.9 K/mcL (1.6-8.9); Platelet Count 113 K/mcL (140-400); Red Blood Count 4.48 M/mcL (4.19-5.50); Red Cell Distribution Width 16.2 % (11.5-14.5); Segmented Neutrophils % 83.3 %; White Blood Count 8.3 K/mcL (4.3-11.1)
[2019-04-10 01:26] LABS: Alanine Aminotransferase 25 Units/L (7-52); Albumin 3.4 g/dL (3.5-5.7); Alkaline Phosphatase 102 Units/L (34-104); Aspartate Amino Transferase 37 Units/L (13-39); BUN/Creatinine Ratio 9 (6-26); Bilirubin,Direct 0.2 mg/dL (0.0-0.2); Bilirubin,Indirect 0.3 mg/dL (0.0-1.2); Bilirubin,Total 0.5 mg/dL (0.3-1.0); Blood Urea Nitrogen 9 mg/dL (6-20); Carbon Dioxide 18 mEq/L (23-29); Chloride 109 mEq/L (98-107); Globulin 3.4 g/dL (2.4-3.5); Glucose 313 mg/dL (70-105); Osmolality,Calculated 293 (280-300); Potassium 3.7 mEq/L (3.5-5.1); Sodium 136 mEq/L (136-145); Total Protein 6.8 g/dL (6.4-8.9); eGFR For African Americans > 60 (> 60); eGFR For Non-African Americans > 60 (> 60)
[2019-04-10 01:27] LABS: Troponin I 0.03 ng/mL (< 0.04)
[2019-04-10 01:44] LABS: Platelet Clumps Few (Not Present)
[2019-04-10 01:45] LABS: Platelet Estimate Decreased (Normal)
--- NOTE | 2019-04-10 02:39 | Emergency Department Note ---
Disposition Clinical Impression: Severe sepsis Sepsis Qualifiers: Sepsis type: sepsis due to unspecified organism Qualified Code(s): A41.9 - Sepsis, unspecified organism Pneumonia Qualifiers: Pneumonia type: due to unspecified organism Laterality: unspecified laterality Lung location: unspecified part of lung Qualified Code(s): J18.9 - Pneumonia, unspecified organism Disposition: Admitted As Inpatient Condition: Fair Referrals: NONE,PCP [Primary Care Provider] - Forms: ED Satisfaction Letter Time of Disposition: 02:40 General Adult HPI - General Chief complaint: ED Fever Stated complaint: fever Time Seen by Provider: 04/10/19 00:16 Source: patient, EMS Mode of arrival: EMS Limitations: no limitations Nursing Notes Reviewed: Yes Vital Signs Reviewed: Yes - History of Present Illness Pain Scale: 5 - Related Data Home Medications Medication Instructions Recorded Confirmed Aspirin Enteric Coated [Aspirin EC] 81 mg PO DAILY 04/30/18 03/09/19 Baclofen [Lioresal] 10 mg PO Q8H PRN 04/30/18 03/09/19 Folic Acid 1 mg PO DAILY 04/30/18 03/09/19 Guaifenesin [Tussin Mucus-Chest 5 ml PO Q6H PRN 04/30/18 03/09/19 Congestion] Insulin Glargine,Hum.rec.anlog 60 unit SQ HS 04/30/18 03/09/19 [Basaglar Kwikpen U-100] Insulin Glargine,Hum.rec.anlog 70 unit SQ DAILY 04/30/18 03/09/19 [Basaglar Kwikpen U-100] Insulin LISPRO [HumaLOG] 2 - 25 units SQ TIDAC 04/30/18 03/09/19 Multivitamin [One Daily Essential] 1 tab PO DAILY 04/30/18 03/09/19 Quetiapine Fumarate [Seroquel] 50 mg PO QAM 04/30/18 03/09/19 Ranitidine HCl [Acid Life Skills Consultant] 150 mg PO BID 04/30/18 03/09/19 Topiramate [Topamax] 200 mg PO BID 04/30/18 03/09/19 hydrOXYzine HCl [Hydroxyzine HCl] 25 mg PO HS 04/30/18 03/09/19 metFORMIN [Glucophage] 1,000 mg PO BIDWM 04/30/18 03/09/19 Diclofenac Sodium [Voltaren] 1 appl TD BID 01/20/19 03/09/19 Gabapentin [Neurontin] 800 mg PO TID 01/20/19 03/09/19 Ketoconazole Shampoo [Nizoral 1 appl TP SUTUFR 01/20/19 03/09/19 Shampoo] Sitagliptin Phosphate [Januvia] 50 mg PO DAILY 03/08/19 03/09/19 chlorproMAZINE [Thorazine] 25 mg PO TID 03/08/19 03/09/19 Acetaminophen [Non-Aspirin] 650 mg PO Q4H PRN 03/09/19 03/09/19 Ascorbic Acid [Vitamin C with Peyton 500 mg PO DAILY 03/09/19 03/09/19 Hips] Quetiapine Fumarate [Seroquel] 125 mg PO HS 03/09/19 03/09/19 Selenium Sulfide [Selrx] 1 appl TP MOTH 03/09/19 03/09/19 Sertraline [Zoloft] 200 mg PO HS 03/09/19 03/09/19 Previous Rx's Medication Instructions Recorded Ferrous Sulfate [Iron] 325 mg PO DAILY #30 tablet 12/27/18 Doxycycline 100 mg PO BID #7 capsule 03/11/19 Lactulose 20 gm PO TID udc 03/11/19 cephALEXin [Keflex] 500 mg PO QID #14 capsule 03/11/19 Allergies Allergy/AdvReac Type Severity Reaction Status Date / Time acetaminophen Allergy Nausea Verified 12/27/18 11:50 [From Darvocet-N] Cyclobenzaprine Allergy Nausea Verified 12/27/18 11:50 [From Flexeril] latex Allergy See Verified 01/21/19 00:14 Comments Penicillins Allergy See Verified 01/21/19 00:14 Comments propoxyphene Allergy Nausea Verified 12/27/18 11:50 [From Darvocet-N] Sulfa (Sulfonamide Allergy Nausea Verified 12/27/18 11:50 Antibiotics) Constitutional: Reports: fever Cardiovascular: Denies: chest pain Respiratory: Reports: cough. Denies: dyspnea Gastrointestinal: Denies: abdominal pain, vomiting Neurological: Denies: weakness, numbness, paresthesias Past Medical History - Past Medical History Medical history: Reports: cancer, diabetes, hypertension Psychiatric history: Reports: anxiety, bipolar, depression - Social History Smoking Status: Current every day smoker Smokeless Tobacco Status: No Alcohol use: Reports: none Drug use: Reports: none Physical Exam - General Limitations: no limitations General appearance: alert, in no apparent distress Course Vital Signs Temperature 102.8 F H 04/10/19 00:22 Pulse Rate 121 04/10/19 00:22 Respiratory Rate 18 04/10/19 00:22 Blood Pressure 171/108 04/10/19 00:22 O2 Sat by Pulse Oximetry 94 04/10/19 00:22 Temperature 102.8 F H 04/10/19 00:22 Pulse Rate 121 04/10/19 00:22 Respiratory Rate 18 04/10/19 00:22 Blood Pressure 171/108 04/10/19 00:22 O2 Sat by Pulse Oximetry 94 04/10/19 00:22 Oxygen Delivery Oxygen Delivery Room Air Medical Decision Making - Medical Records Medical records reviewed: Yes I reviewed the patient's medical records. - Lab Data Lab results reviewed: Yes I reviewed the patient's lab results. Result diagrams: 04/10/19 00:52 04/10/19 00:52 Lab Results 04/10/19 04/10/19 04/10/19 Range/Units 00:50 00:52 00:52 WBC 8.3 (4.3-11.1) K/mcL RBC 4.48 (4.19-5.50) M/mcL Hgb 11.2 L (12.9-16.9) g/dL Hct 36.2 L (37.5-50.1) % MCV 80.8 L (83.0-100.0) fL MCH 25.0 L (28.0-33.3) pg MCHC 30.9 L (31.6-35.5) g/dL RDW 16.2 H (11.5-14.5) % Plt Count 113 L (140-400) K/mcL MPV TNP Immature Gran % 0.2 (0-4) % Seg Neutrophils % 83.3 % Lymphocytes % 10.1 % Monocytes % 5.6 % Eosinophils % 0.4 % Basophils % 0.4 % Neutrophils # 6.9 (1.6-8.9) K/mcL Lymphocytes # 0.8 (0.6-4.6) K/mcL Monocytes # 0.5 (0.0-1.3) K/mcL Eosinophils # 0.0 (0.0-0.6) K/mcL Basophils # 0.0 (0.0-0.2) K/mcL Platelet Estimate Decreased L (Normal) Clumped Platelets Few A (Not Present) Immature Plt Fraction 1.5 (1.1-6.1) % Sodium 136 (136-145) mEq/L Potassium 3.7 (3.5-5.1) mEq/L Chloride 109 H (98-107) mEq/L Carbon Dioxide 18 L (23-29) mEq/L BUN 9 (6-20) mg/dL Creatinine 1.00 (0.70-1.30) mg/dL Est GFR ( Amer) > 60 (> 60) Est GFR (Non-Af Amer) > 60 (> 60) BUN/Creatinine Ratio 9 (6-26) Glucose 313 H (70-105) mg/dL Calculated Osmolality 293 (280-300) Lactic Acid (0.5-2.2) mmol/L Calcium 9.0 (8.6-10.3) mg/dL Total Bilirubin 0.5 (0.3-1.0) mg/dL Direct Bilirubin 0.2 (0.0-0.2) mg/dL Indirect Bilirubin 0.3 (0.0-1.2) mg/dL AST 37 (13-39) Units/L ALT 25 (7-52) Units/L Alkaline Phosphatase 102 (34-104) Units/L Troponin I 0.03 (< 0.04) ng/mL Serum Total Protein 6.8 (6.4-8.9) g/dL Albumin 3.4 L (3.5-5.7) g/dL Globulin 3.4 (2.4-3.5) g/dL Albumin/Globulin Ratio 1.0 L (1.1-2.2) Urine Color Yellow (Yellow) Urine Clarity Clear (Clear) Urine pH 6.0 (5.0-8.0) pH Units Ur Specific [place] 1.011 (1.010-1.025) Urine Protein Negative (Neg-Trace) mg/dL Urine Glucose (UA) 100 H (Normal) mg/dL Urine Ketones Negative (Negative) mg/dL Urine Blood Negative (Negative) Urine Nitrite Negative (Negative) Urine Bilirubin Negative (Negative) Urine Urobilinogen Normal (Normal) mg/dL Ur Leukocyte Esterase Negative (Negative) Ur Culture Indicated? NO (NO) 04/10/19 Range/Units 00:52 WBC (4.3-11.1) K/mcL RBC (4.19-5.50) M/mcL Hgb (12.9-16.9) g/dL Hct (37.5-50.1) % MCV (83.0-100.0) fL MCH (28.0-33.3) pg MCHC (31.6-35.5) g/dL RDW (11.5-14.5) % Plt Count (140-400) K/mcL MPV Immature Gran % (0-4) % Seg Neutrophils % % Lymphocytes % % Monocytes % % Eosinophils % % Basophils % % Neutrophils # (1.6-8.9) K/mcL Lymphocytes # (0.6-4.6) K/mcL Monocytes # (0.0-1.3) K/mcL Eosinophils # (0.0-0.6) K/mcL Basophils # (0.0-0.2) K/mcL Platelet Estimate (Normal) Clumped Platelets (Not Present) Immature Plt Fraction (1.1-6.1) % Sodium (136-145) mEq/L Potassium (3.5-5.1) mEq/L Chloride (98-107) mEq/L Carbon Dioxide (23-29) mEq/L BUN (6-20) mg/dL Creatinine (0.70-1.30) mg/dL Est GFR ( Amer) (> 60) Est GFR (Non-Af Amer) (> 60) BUN/Creatinine Ratio (6-26) Glucose (70-105) mg/dL Calculated Osmolality (280-300) Lactic Acid 3.4 H (0.5-2.2) mmol/L Calcium (8.6-10.3) mg/dL Total Bilirubin (0.3-1.0) mg/dL Direct Bilirubin (0.0-0.2) mg/dL Indirect Bilirubin (0.0-1.2) mg/dL AST (13-39) Units/L ALT (7-52) Units/L Alkaline Phosphatase (34-104) Units/L Troponin I (< 0.04) ng/mL Serum Total Protein (6.4-8.9) g/dL Albumin (3.5-5.7) g/dL Globulin (2.4-3.5) g/dL Albumin/Globulin Ratio (1.1-2.2) Urine Color (Yellow) Urine Clarity (Clear) Urine pH (5.0-8.0) pH Units Ur Specific [place] (1.010-1.025) Urine Protein (Neg-Trace) mg/dL Urine Glucose (UA) (Normal) mg/dL Urine Ketones (Negative) mg/dL Urine Blood (Negative) Urine Nitrite (Negative) Urine Bilirubin (Negative) Urine Urobilinogen (Normal) mg/dL Ur Leukocyte Esterase (Negative) Ur Culture Indicated? (NO) - Radiology Data Radiology results reviewed: Yes I reviewed the patient's radiology results. Chest X-Ray 04/10/19 00:28 IMPRESSION: Low lung volume study showing bilateral airspace disease. Correlation for edema is recommended. Diffuse pneumonia is also possible. Follow-up is recommended, preferably with a PA and lateral study. D/ / Alyson Weeks Cha, MD / Alyson Weeks Cha, MD Interpreting Provider: Alyson Weeks Cha, MD - EKG Data EKG #1 EKG attestation: Yes I reviewed and interpreted this EKG. EKG results narrative: EKG shows sinus tachycardia with ventricular rate of 119. No significant ST segment elevation or depression. No significant change from prior EKG dated 03/08/2019. Critical Care Time Critical Care Time: Yes Total Critical Care Time: 40 Attestation: Critical care performed: Time is exclusive of separately billable procedures. Time includes: direct patient care, patient reassessment, coordination of patient care, interpretation of data (laboratory data, radiology data, and respiratory data), review of patient's medical records, medical consultation and documentation of patient care. Procedures included in critical care time: Procedures excluded from critical care time: Attestation Statement - Attestation Attestation: IRenato MD, personally evaluated this patient and discussed their management with the resident physician. I reviewed the resident's note and agree with the documented findings, medical decision making, and plan of care. I reviewed the residents documentation and agree with the residents assessment and plan of care. I have personally had face to face time with the patient. I personally supervised and was present for the snider/critical portions of the following procedures completed by the resident: EKG interpretation. 43-year-old male with history of paraplegia presents to the emergency department from a local [facility] for complaint of fever. Patient suspects he has aspiration pneumonia. He states he has been drinking some water and is only supposed to drink thickened fluids. Some mild cough. No chest pain. No shortness of breath. On examination patient is a well-developed well-nourished male in no acute distress. He is alert and oriented. No cyanosis or diaphoresis. Breath sounds are decreased on the right with some scattered rhonchi on the right. Heart regular with a moderate tachycardia. Abdomen soft and nontender with normal bowel sounds. Chest x-ray shows some bilateral airspace disease. Labs reviewed. Lactic acid 3.4. EKG shows sinus tachycardia with ventricular rate of 119. No significant ST segment elevation or depression. No significant change from prior EKG dated 03/08/2019. Cultures obtained and IV antibiotics initiated. The hospitalist, Dr. Ramirez, was consulted and accepted admission of the patient.
[2019-04-10] MEDS ORDERED: traMADol 50 MG TABLET PO PRN (03:12)
[2019-04-10] MEDS ORDERED: Ibuprofen 600 MG TABLET PO PRN (03:12)
[2019-04-10] MEDS ORDERED: *HR* Dextrose 50 % in Water (Syg) 50 ML SYRINGE IVP PRN (03:16)
[2019-04-10] MEDS ORDERED: Dextrose Gel 15 GM/37.5 ML TUBE PO PRN ×2 (03:16)
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
[2019-04-10] MEDS ORDERED: Isovue-370 500 ML BOTTLE IVP ONE (03:56)
--- NOTE | 2019-04-10 04:51 | Event Note ---
Date of Encounter: 04/10/19 Time of Encounter: 04:50 The patient's mental status has continued to worsen since last seen with a notably more depressed mental status as well as a significant decrease in his systolic blood pressure. Fluid bolus will be ordered and dickey-CT scans for any occult sources of infection. Repeat lactate and serum ammonia pending. Will get a blood gas as well.
[2019-04-10 05:27] LABS: VBG HCO3 21 mEq/L (21-27); VBG PCO2 39 mmHg (41-51); VBG PH 7.33 pH Units (7.32-7.42); VBG PO2 190 mmHg (25-50)
[2019-04-10] MEDS: *HR* Heparin 5,000 UNIT/ML VIAL SQ SCH ×3 (06:17→21:20)
[2019-04-10] MEDS: 0.9 % Sodium Chloride 1,000 ML IVC SCH ×2 (06:18→14:26)
[2019-04-10] MEDS ORDERED: 0.9 % Sodium Chloride 500 ML IVC PRN (07:52)
[2019-04-10] MEDS: Insulin LISPRO 300 UNITS/3 ML VIAL SQ SCH ×4 (08:29→21:13)
[2019-04-10] MEDS: Piperacillin/Tazobactam 3.375 GM in 0.9 % Sodium Chloride Mini Bag 100 ML IVPB SCH ×2 (08:30→14:22)
--- NOTE | 2019-04-10 09:16 | Electrocardiograph Report ---
[address] [address] Test Date: 2019-04-10 Pat Name: [facility] Department: [id number] Room: 2N15 Gender: Research Development Director: : [id number] Requested By: Umberto Barth Order Number: [id number] Reading MD: Wendy Stevens Measurements Intervals [place] Rate: 119 P: 58 [place]: 142 QRS: 89 QRSD: 99 T: 17 QT: 314 QTc: 442 Interpretive Statements Sinus tachycardia Probable left atrial enlargement Nonspecific ST-T changes Electronically Signed On 04-10-2019 9:14:44 EDT by Wendy Stevens
[2019-04-10] MEDS ORDERED: Baclofen 10 MG TABLET PO PRN (12:48)
[2019-04-10] MEDS ORDERED: Acetaminophen 325 MG TABLET PO PRN (12:48)
--- NOTE | 2019-04-10 12:51 | Event Note ---
Date of Encounter: 04/10/19 Time of Encounter: 10:30 H&P reviewed. Patient with history of traumatic brain injury with paraplegia, metastatic testicular cancer, cirrhosis, was admitted overnight due to sepsis; presented with fever, tachycardia, and AMS. Source thought to be due to aspiration pneumonia as he is noncompliant to dietary restrictions. Pericholecystic fluid on CT but US unremarkable. Lactic acid also elevated at 3.4 which normalized with IV fluid. Ammonia level normal, ABG did not show any signs of hypercarbia. Given the recent admission for similar episode, will treat with IV zosyn and check MRSA screen. Obtain speech eval.
[2019-04-10] MEDS: Gabapentin 400 MG CAPSULE PO SCH ×2 (14:21→21:19)
[2019-04-10] MEDS: Lactulose Oral Soln 20 GM/30 ML UDC PO SCH ×2 (14:21→21:20)
[2019-04-10] MEDS: *HR* LORazepam 0.5 MG TABLET PO SCH ×2 (14:22→21:19)
[2019-04-10] MEDS: chlorproMAZINE 25 MG TABLET PO SCH ×2 (14:23→21:19)
[2019-04-10] MEDS: *HR* OxyCODONE Immed Rel 5 MG TABLET PO PRN ×2 (15:15→21:19)
[2019-04-10] MEDS: Famotidine 20 MG TABLET PO SCH (15:17)
[2019-04-10] MEDS: (Diclofenac Sodium [Voltaren] 1 APPL) TP SCH (21:13)
[2019-04-10] MEDS: Topiramate 100 MG TABLET PO SCH (21:19)
[2019-04-11] MEDS: Piperacillin/Tazobactam 3.375 GM in 0.9 % Sodium Chloride Mini Bag 100 ML IVPB SCH ×3 (00:09→15:31)
[2019-04-11 01:26] LABS: Acinetobacter baumannii by PCR Not Detected (Not Detect); Enterococcus by PCR Not Detected (Not Detect); Staphylococcus aureus by PCR Not Detected (Not Detect); Staphylococcus by PCR DETECTED (Not Detect); Streptococcus agalactiae(B)PCR Not Detected (Not Detect); Streptococcus by PCR Not Detected (Not Detect); Streptococcus pneumoniae PCR Not Detected (Not Detect); Streptococcus pyogenes (A) PCR Not Detected (Not Detect); mecA Methicillin-Resist Gene Not Detected (Not Detect)
[2019-04-11 01:27] LABS: Candida albicans by PCR Not Detected (Not Detect); Candida glabrata by PCR Not Detected (Not Detect); Candida krusei by PCR Not Detected (Not Detect); Candida parapsilosis by PCR Not Detected (Not Detect); Candida tropicalis by PCR Not Detected (Not Detect); Enterobacter cloacae Cmplx PCR Not Detected (Not Detect); Enterobacteriaceae by PCR Not Detected (Not Detect); Escherichia coli by PCR Not Detected (Not Detect); Klebsiella oxytoca by PCR Not Detected (Not Detect); Klebsiella pneumoniae by PCR Not Detected (Not Detect); Proteus by PCR Not Detected (Not Detect); Pseudomonas aeruginosa by PCR Not Detected (Not Detect); Serratia marcescens by PCR Not Detected (Not Detect)
[2019-04-11] MEDS: *HR* OxyCODONE Immed Rel 5 MG TABLET PO PRN ×3 (03:13→15:30)
[2019-04-11 03:48] LABS: Basophils % 0.5 %; Immature Granulocytes % 0.3 % (0-4); Monocytes % 5.2 %
[2019-04-11 03:51] LABS: Eosinophils # 0.2 K/mcL (0.0-0.6); Eosinophils % 3.6 %; Hematocrit 37.6 % (37.5-50.1); Hemoglobin 11.4 g/dL (12.9-16.9); Immature Platelets 1.9 % (1.1-6.1); Lymphocytes # 1.2 K/mcL (0.6-4.6); Lymphocytes % 17.8 %; Mean Corpuscular HGB Conc 30.3 g/dL (31.6-35.5); Mean Corpuscular Volume 82.5 fL (83.0-100.0); Mean Platelet Volume 11.8 fL (9.4-12.4); Monocytes # 0.3 K/mcL (0.0-1.3); Neutrophils # 4.8 K/mcL (1.6-8.9); Platelet Count 109 K/mcL (140-400); Red Blood Count 4.56 M/mcL (4.19-5.50); Red Cell Distribution Width 16.8 % (11.5-14.5); Segmented Neutrophils % 72.6 %; White Blood Count 6.6 K/mcL (4.3-11.1)
[2019-04-11 03:56] LABS: BUN/Creatinine Ratio 8 (6-26); Blood Urea Nitrogen 7 mg/dL (6-20); Calcium 9.1 mg/dL (8.6-10.3); Carbon Dioxide 23 mEq/L (23-29); Chloride 114 mEq/L (98-107); Glucose 200 mg/dL (70-105); Osmolality,Calculated 300 (280-300); Potassium 3.8 mEq/L (3.5-5.1); Sodium 143 mEq/L (136-145); eGFR For African Americans > 60 (> 60); eGFR For Non-African Americans > 60 (> 60)
[2019-04-11] MEDS: *HR* Heparin 5,000 UNIT/ML VIAL SQ SCH ×3 (05:47→22:08)
[2019-04-11] MEDS: Ascorbic Acid 500 MG TABLET PO SCH (09:42)
[2019-04-11] MEDS: Lactulose Oral Soln 20 GM/30 ML UDC PO SCH ×3 (09:42→22:08)
[2019-04-11] MEDS: Gabapentin 400 MG CAPSULE PO SCH ×3 (09:42→22:03)
[2019-04-11] MEDS: Famotidine 20 MG TABLET PO SCH ×2 (09:42→15:30)
[2019-04-11] MEDS: Aspirin Enteric Coated 81 MG Tablet PO SCH (09:42)
[2019-04-11] MEDS: Topiramate 100 MG TABLET PO SCH ×2 (09:42→22:06)
[2019-04-11] MEDS: *HR* LORazepam 0.5 MG TABLET PO SCH ×3 (09:42→22:04)
[2019-04-11] MEDS: Multivit/Ca/Min/Fe/FA 1 TAB TABLET PO SCH (09:42)
[2019-04-11] MEDS: chlorproMAZINE 25 MG TABLET PO SCH ×3 (09:43→22:05)
[2019-04-11] MEDS: Insulin LISPRO 300 UNITS/3 ML VIAL SQ SCH ×4 (09:43→22:17)
[2019-04-11] MEDS: Folic Acid 1 MG TABLET PO SCH (09:43)
[2019-04-11] MEDS: (Diclofenac Sodium [Voltaren] 1 APPL) TP SCH (09:44)
--- NOTE | 2019-04-11 10:53 | Internal Med Progress Note ---
Hospitalist Progress Note - Encounter Date of Encounter: 04/11/19 Time of Encounter: 08:45 - Subjective Interval History: No acute events overnight. Cough is improving and remained afebrile since the presentation. Denies any chest pain, nausea/vomiting, or abdominal pain. - Exam Vitals: Temp Pulse Resp BP Pulse Ox 98.5 F 90 18 128/85 93 04/11/19 09:45 04/11/19 06:59 04/11/19 09:45 04/11/19 09:45 04/11/19 09:45 Exam: Vitals: Reviewed General: Well-developed, alert and oriented x 3, not in distress Lung: Clear to auscultation bilaterally Heart: Normal S1 & S2; rhythmic. No rubs or murmurs. Abdomen: soft and non-tender to palpation. No peritoneal reaction. Berry's negative Neurological: No focal deficits - Assessment and Plan (1) Sepsis Current Visit: Yes Status: Acute Assessment and Plan: Presented with fever and tachycardia CT showed bilateral airspace disease suspecting aspiration PNA there was a concern for pericholecystic fluid and whether it represents acute cholecystitis but US was unremarkable and pt has no abdominal pain. LFT also unremarkable Blood culture growing GPC in 1 out of 2 sets (which is not S. aureus). Likely a contaminant and pt is clinically improving on Zosyn only. MRSA screen -ve will continue zosyn for now and repeat blood cultures. Will add vancomycin if he deteriorates (2) Bacteremia Current Visit: Yes Status: Acute Assessment and Plan: Likely a contaminant, see above (3) Aspiration pneumonia Current Visit: No Status: Acute Assessment and Plan: as above speech therapy input appreciated, for nectar thickened diet and emphasized importance of compliance to dietary restriction to the patient. (4) Cirrhosis Current Visit: No Status: Chronic Assessment and Plan: not in decompensation outpatient hepatology follow up (5) Diabetes mellitus Current Visit: No Status: Chronic Assessment and Plan: Continue sliding scale coverage DVT Prophylaxis: SQ heparin - Time Spent with Patient Total time spent is greater than 50% in coordination of care (as documented) at patient's floor/unit and/or counseling patient: 25 - 35 minutes Plan of Care Discussed with: patient (discussed with pt's mother by bedside) Internal Medicine: Result - Labs CBC & Chem 7: 04/11/19 03:05 04/11/19 03:05 Labs: Short CBC 07/18/19 Range/Units 03:05 WBC 6.6 (4.3-11.1) K/mcL Hgb 11.4 L (12.9-16.9) g/dL Hct 37.6 (37.5-50.1) % Plt Count 109 L (140-400) K/mcL Neutrophils # 4.8 (1.6-8.9) K/mcL BMP 04/11/19 03:05 Sodium 143 Potassium 3.8 Chloride 114 H Carbon Dioxide 23 BUN 7 Creatinine 0.92 Glucose 200 H Calcium 9.1 Consult Discharge Plan - Plan Referrals: Ziggy March MD [Non-Partnered Physician] - (patient is from [facility] no PCP appointment needed) ___ (1) Sepsis Qualifiers: Sepsis type: sepsis due to unspecified organism Qualified Code(s): A41.9 - Sepsis, unspecified organism (3) Aspiration pneumonia Qualifiers: Qualified Code(s): J69.0 - Pneumonitis due to inhalation of food and vomit (4) Cirrhosis Qualifiers: Hepatic cirrhosis type: unspecified hepatic cirrhosis Ascites presence: without ascites Qualified Code(s): K74.60 - Unspecified cirrhosis of liver (5) Diabetes mellitus Qualifiers: Diabetes mellitus type: type 2 Diabetes mellitus buttermaker continuous churn insulin use: with nursing home use Diabetes mellitus complication status: without complication Qualified Code(s): E11.9 - Type 2 diabetes mellitus without complications; Z79.4 - correction (current) use of insulin
[2019-04-11] MEDS: Nystatin Cream 15 GM TUBE TP SCH ×2 (18:07→22:10)
[2019-04-12] MEDS: Piperacillin/Tazobactam 3.375 GM in 0.9 % Sodium Chloride Mini Bag 100 ML IVPB SCH ×3 (00:41→16:10)
[2019-04-12 06:02] LABS: Hematocrit 37.7 % (37.5-50.1); Hemoglobin 11.7 g/dL (12.9-16.9); Mean Corpuscular Hemoglobin 25.1 pg (28.0-33.3); Mean Corpuscular Volume 80.9 fL (83.0-100.0); Mean Platelet Volume 10.8 fL (9.4-12.4); Red Blood Count 4.66 M/mcL (4.19-5.50); Red Cell Distribution Width 16.8 % (11.5-14.5); White Blood Count 6.1 K/mcL (4.3-11.1)
[2019-04-12 06:04] LABS: BUN/Creatinine Ratio 6 (6-26); Blood Urea Nitrogen 6 mg/dL (6-20); Calcium 9.1 mg/dL (8.6-10.3); Carbon Dioxide 21 mEq/L (23-29); Chloride 110 mEq/L (98-107); Glucose 130 mg/dL (70-105); Osmolality,Calculated 303 (280-300); Potassium 3.6 mEq/L (3.5-5.1); Sodium 147 mEq/L (136-145); eGFR For African Americans > 60 (> 60); eGFR For Non-African Americans > 60 (> 60)
[2019-04-12] MEDS: *HR* Heparin 5,000 UNIT/ML VIAL SQ SCH ×2 (06:41→16:13)
[2019-04-12] MEDS: *HR* LORazepam 0.5 MG TABLET PO SCH ×2 (08:57→16:10)
[2019-04-12] MEDS: Lactulose Oral Soln 20 GM/30 ML UDC PO SCH ×2 (08:57→16:11)
[2019-04-12] MEDS: Topiramate 100 MG TABLET PO SCH (08:58)
[2019-04-12] MEDS: chlorproMAZINE 25 MG TABLET PO SCH ×2 (08:58→16:10)
[2019-04-12] MEDS: Famotidine 20 MG TABLET PO SCH ×2 (08:58→16:10)
[2019-04-12] MEDS: Folic Acid 1 MG TABLET PO SCH (08:58)
[2019-04-12] MEDS: Gabapentin 400 MG CAPSULE PO SCH ×2 (08:58→16:10)
[2019-04-12] MEDS: Ascorbic Acid 500 MG TABLET PO SCH (08:58)
[2019-04-12] MEDS: Aspirin Enteric Coated 81 MG Tablet PO SCH (08:58)
[2019-04-12] MEDS: Multivit/Ca/Min/Fe/FA 1 TAB TABLET PO SCH (09:07)
[2019-04-12] MEDS: *HR* OxyCODONE Immed Rel 5 MG TABLET PO PRN ×2 (09:25→15:29)
[2019-04-12] MEDS: Nystatin Cream 15 GM TUBE TP SCH ×2 (09:40→16:11)
[2019-04-12] MEDS: Insulin LISPRO 300 UNITS/3 ML VIAL SQ SCH ×2 (10:50→11:46)
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
[2019-04-12 10:59] VITALS: BP 118/89
--- NOTE | 2019-04-12 10:59 | Physician Discharge Referral ---
ExtendedCare Referral Info Institutional Level of Care: Skilled - Diagnosis (1) Sepsis Priority: Primary Status: Acute (2) Bacteremia Priority: Secondary Status: Acute (3) Aspiration pneumonia Priority: Secondary Status: Acute (4) Cirrhosis Priority: Secondary Status: Chronic (5) Diabetes mellitus Priority: Secondary Status: Chronic - Transfer Medications Prescriptions: LORazepam [Ativan] 0.5 mg PO TID 3 Days #9 tablet metroNIDAZOLE [Flagyl] 500 mg PO TID 5 Days #15 tablet levoFLOXacin [Levaquin] 750 mg PO DAILY 5 Days #5 tablet Oxycodone HCl 5 mg PO Q6H PRN 2 Days #8 tablet PRN Reason: Pain Home Medications: Aspirin Enteric Coated [Aspirin EC] 81 mg PO QAM 04/30/18 [History] Baclofen [Lioresal] 10 mg PO Q8H PRN 04/30/18 [History] Folic Acid 1 mg PO DAILY 04/30/18 [History] Guaifenesin [Tussin Mucus-Chest Congestion] 100 - 200 mg PO Q6H PRN 04/30/18 [History] Insulin Glargine,Hum.rec.anlog [Basaglar Kwikpen U-100] 60 unit SQ HS 04/30/18 [History] Insulin Glargine,Hum.rec.anlog [Basaglar Kwikpen U-100] 70 unit SQ DAILY 04/30/18 [History] Insulin LISPRO [HumaLOG] 2 - 25 units SQ TIDAC 04/30/18 [History] Multivitamin [One Daily Essential] 1 tab PO DAILY 04/30/18 [History] Ranitidine HCl [Acid Slot Host] 150 mg PO BID 04/30/18 [History] Topiramate [Topamax] 200 mg PO BID 04/30/18 [History] hydrOXYzine HCl [Hydroxyzine HCl] 25 mg PO HS 04/30/18 [History] metFORMIN [Glucophage] 1,000 mg PO BIDWM 04/30/18 [History] Ferrous Sulfate [Iron] 325 mg PO DAILY #30 tablet 12/27/18 [Rx] Diclofenac Sodium [Voltaren] 1 appl TD BID 01/20/19 [History] Gabapentin [Neurontin] 800 mg PO TID 01/20/19 [History] Ketoconazole Shampoo [Nizoral Shampoo] 1 appl TP SUTUFR 01/20/19 [History] Sitagliptin Phosphate [Januvia] 50 mg PO DAILY 03/08/19 [History] chlorproMAZINE [Thorazine] 25 mg PO TID 03/08/19 [History] Acetaminophen [Non-Aspirin] 650 mg PO Q4H PRN 03/09/19 [History] Selenium Sulfide [Selrx] 1 appl TP MOTH 03/09/19 [History] Sertraline [Zoloft] 200 mg PO HS 03/09/19 [History] Lactulose 20 gm PO TID udc 03/11/19 [Rx] Ascorbate Calcium [Vitamin C] 500 mg PO DAILY 04/10/19 [History] Cyclobenzaprine [Flexeril] 10 mg PO Q8H PRN 04/10/19 [History] Ipratropium/Albuterol Neb [Duoneb] 3 ml PO Q6H PRN 04/10/19 [History] Quetiapine Fumarate [Seroquel] 150 mg PO QAM 04/10/19 [History] Quetiapine Fumarate [Seroquel] 200 mg PO HS 04/10/19 [History] LORazepam [Ativan] 0.5 mg PO TID 3 Days #9 tablet 04/12/19 [Rx] Oxycodone HCl 5 mg PO Q6H PRN 2 Days #8 tablet 04/12/19 [Rx] levoFLOXacin [Levaquin] 750 mg PO DAILY 5 Days #5 tablet 04/12/19 [Rx] metroNIDAZOLE [Flagyl] 500 mg PO TID 5 Days #15 tablet 04/12/19 [Rx] Allergies/Adverse Reactions: Allergy/AdvReac Type Severity Reaction Status Date / Time acetaminophen Allergy Nausea Verified 04/10/19 08:54 [From Darvocet-N] Cyclobenzaprine Allergy Nausea Verified 04/10/19 08:54 [From Flexeril] latex Allergy See Verified 04/10/19 08:54 Comments Penicillins Allergy See Verified 04/10/19 08:54 Comments propoxyphene Allergy Nausea Verified 04/10/19 08:54 [From Darvocet-N] Sulfa (Sulfonamide Allergy Nausea Verified 04/10/19 08:54 Antibiotics) - Respiratory Orders Smoking Cessation: Smoking cessation has been advised. For more information, call the [place] Tobacco Quit Line at 3-983-MHZM-NOW. - Rehabiliation Orders Rehab Orders: Evaluation for Physical Therapy, Evaluation for Occupational Therapy CERTIFICATION: I certify that the transfer of the above named patient to an Extended Care Facility is necessary for the continuing treatment of the diagnosis listed. The above information is true and accurate reflection of patient's current condition. Confidential - Redisclosure prohibited without a patient's written consent.
[2019-04-12] MEDS ORDERED: Ketoconazole Shampoo 120 ML BOTTLE TP SCH (12:48)
== END 2019-04-12 17:49 | DRG 720 ==
LOC: CDU 00:13 → EMEROOARM 00:13 → CDU 03:34 → 2NNU 03:47 → SUATTDRO 03:49 → 2NENU 04-11 15:56
PROVIDERS: ADMIT Internal Medicine; ATTEND Internal Medicine

== ENCOUNTER 2019-05-20 00:31 | Inpatient (IN) ==
[2019-05-20] MEDS ORDERED: 0.9 % Sodium Chloride 1,000 ML IVC ONE ×2 (01:22→03:06)
[2019-05-20 01:52] LABS: Bilirubin,Urine Negative (Negative); Blood,Urine Negative (Negative); Clarity,Urine Clear (Clear); Color,Urine Yellow (Yellow); Glucose,Urine (UA) 100 mg/dL (Normal); Ketones,Urine Negative (Negative); Leukocyte Esterase,Urine Negative (Negative); Nitrite,Urine Negative (Negative); PH,Urine 6.5 pH Units (5.0-8.0); Protein,Urine Negative (Neg-Trace); Urobilinogen,Urine Normal (Normal)
[2019-05-20] MEDS ORDERED: Piperacillin/Tazobactam 3.375 GM in 0.9 % Sodium Chloride Mini Bag 100 ML IVPB ONE (02:18)
[2019-05-20 02:19] LABS: Basophils % 0.4 %; Immature Granulocytes % 0.4 % (0-4); Lymphocytes % 12.3 %; Mean Corpuscular Volume 80.4 fL (83.0-100.0)
[2019-05-20 02:21] LABS: Eosinophils # 0.1 K/mcL (0.0-0.6); Hematocrit 40.7 % (37.5-50.1); Immature Platelets 1.8 % (1.1-6.1); Mean Corpuscular HGB Conc 31.9 g/dL (31.6-35.5); Mean Corpuscular Hemoglobin 25.7 pg (28.0-33.3); Mean Platelet Volume 10.9 fL (9.4-12.4); Monocytes # 0.6 K/mcL (0.0-1.3); Monocytes % 6.8 %; Neutrophils # 6.4 K/mcL (1.6-8.9); Red Blood Count 5.06 M/mcL (4.19-5.50); Red Cell Distribution Width 17.1 % (11.5-14.5); Segmented Neutrophils % 79.1 %; White Blood Count 8.1 K/mcL (4.3-11.1)
[2019-05-20 02:23] LABS: Platelet Count 98 K/mcL (140-400)
[2019-05-20 02:33] LABS: BUN/Creatinine Ratio 10 (6-26); Blood Urea Nitrogen 7 mg/dL (6-20); Calcium 9.2 mg/dL (8.6-10.3); Carbon Dioxide 18 mEq/L (23-29); Chloride 108 mEq/L (98-107); Glucose 262 mg/dL (70-105); Osmolality,Calculated 289 (280-300); Potassium 3.6 mEq/L (3.5-5.1); Sodium 136 mEq/L (136-145); eGFR For African Americans > 60 (> 60); eGFR For Non-African Americans > 60 (> 60)
[2019-05-20 02:54] LABS: Alanine Aminotransferase 26 Units/L (7-52); Albumin 3.8 g/dL (3.5-5.7); Albumin/Globulin Ratio 1.1 (1.1-2.2); Alkaline Phosphatase 90 Units/L (34-104); Aspartate Amino Transferase 44 Units/L (13-39); Bilirubin,Direct 0.1 mg/dL (0.0-0.2); Bilirubin,Indirect 0.2 mg/dL (0.0-1.2); Bilirubin,Total 0.3 mg/dL (0.3-1.0); Globulin 3.6 g/dL (2.4-3.5); Total Protein 7.4 g/dL (6.4-8.9)
[2019-05-20] MEDS ORDERED: Ondansetron 4 MG/2 ML VIAL IVP PRN (08:19)
[2019-05-20] MEDS ORDERED: Naloxone 0.4 MG/ML INJ IVP PRN (08:19)
[2019-05-20] MEDS ORDERED: Acetaminophen 325 MG TABLET PO PRN ×2 (08:19→14:47)
[2019-05-20] MEDS: 0.9 % Sodium Chloride 1,000 ML IVC SCH ×2 (10:14→17:23)
[2019-05-20] MEDS ORDERED: Baclofen 10 MG TABLET PO PRN (14:47)
[2019-05-20] MEDS ORDERED: GuaiFENesin Liq 200 MG/10 ML UDC PO PRN (14:47)
[2019-05-20] MEDS ORDERED: Vancomycin (wt based) 1,000 MG VIAL IVPB SCH (15:00)
[2019-05-20] MEDS ORDERED: SELENIUM SULFIDE APPL TP SCH (15:00)
[2019-05-20] MEDS: Piperacillin/Tazobactam 3.375 GM in 0.9 % Sodium Chloride Mini Bag 100 ML IVPB SCH (16:54)
[2019-05-20] MEDS: chlorproMAZINE 25 MG TABLET PO SCH ×2 (16:55→20:14)
[2019-05-20] MEDS: *HR* LORazepam 0.5 MG TABLET PO SCH ×2 (16:55→20:14)
[2019-05-20] MEDS: Gabapentin 400 MG CAPSULE PO SCH ×2 (16:57→20:15)
[2019-05-20] MEDS: Lactulose Oral Soln 20 GM/30 ML UDC PO SCH ×2 (17:00→20:15)
[2019-05-20] MEDS: *HR* OxyCODONE Immed Rel 5 MG TABLET PO PRN (17:17)
[2019-05-20] MEDS: Famotidine 20 MG TABLET PO SCH (20:14)
[2019-05-20] MEDS: QUEtiapine Fumarate 100 MG TABLET PO SCH (20:15)
[2019-05-20] MEDS: hydrOXYzine pamoate 25 MG CAPSULE PO SCH (20:15)
[2019-05-20] MEDS: Topiramate 100 MG TABLET PO SCH (20:15)
[2019-05-20] MEDS ORDERED: NON-FORMULARY MEDICATION 1 EACH EACH (Diclofenac Sodium [Voltaren] 1 APPL) TD SCH (21:00)
[2019-05-20] MEDS ORDERED: D5% in Water 1,000 ML IVC PRN (21:02)
[2019-05-20] MEDS ORDERED: *HR* Dextrose 50 % in Water (Syg) 50 ML SYRINGE IVP PRN (21:02)
[2019-05-20] MEDS ORDERED: Dextrose Gel 15 GM/37.5 ML TUBE PO PRN ×2 (21:02)
[2019-05-20 22:04] LABS: Estimated Average Glucose 160 mg/dl
[2019-05-21] MEDS: Piperacillin/Tazobactam 3.375 GM in 0.9 % Sodium Chloride Mini Bag 100 ML IVPB SCH ×3 (00:46→15:39)
[2019-05-21] MEDS: Insulin LISPRO 300 UNITS/3 ML VIAL SQ SCH ×5 (00:47→22:39)
[2019-05-21] MEDS: *HR* Heparin 5,000 UNIT/ML VIAL SQ SCH ×2 (05:23→17:14)
[2019-05-21 06:48] LABS: INR 1.2; Prothrombin Time 13.7 Seconds (9.4-12.1)
[2019-05-21 06:50] LABS: Activated Partial Thrombo Time 43.4 Seconds (26.0-36.0)
[2019-05-21 07:00] LABS: BUN/Creatinine Ratio 13 (6-26); Blood Urea Nitrogen 9 mg/dL (6-20); Carbon Dioxide 19 mEq/L (23-29); Chloride 115 mEq/L (98-107); Glucose 144 mg/dL (70-105); Potassium 3.8 mEq/L (3.5-5.1); Sodium 144 mEq/L (136-145); eGFR For African Americans > 60 (> 60); eGFR For Non-African Americans > 60 (> 60)
[2019-05-21 07:01] LABS: Alanine Aminotransferase 20 Units/L (7-52); Albumin 3.5 g/dL (3.5-5.7); Albumin/Globulin Ratio 1.1 (1.1-2.2); Alkaline Phosphatase 88 Units/L (34-104); Aspartate Amino Transferase 28 Units/L (13-39); Bilirubin,Total 0.3 mg/dL (0.3-1.0); Chol/HDL Ratio 8.2 (0-4.9); Cholesterol 204 mg/dL (< 200); Globulin 3.3 g/dL (2.4-3.5); HDL Cholesterol 25 mg/dL (40-59); LDL Cholesterol,Calculated 132 mg/dL (0-99); Magnesium 1.9 mg/dL (1.6-2.6); Osmolality,Calculated 299 (280-300); Phosphorous 3.5 mg/dL (2.7-4.5); Total Protein 6.8 g/dL (6.4-8.9); Triglycerides 233 mg/dL (< 150)
[2019-05-21] MEDS: Aspirin Enteric Coated 81 MG Tablet PO SCH (08:25)
[2019-05-21] MEDS: Lactulose Oral Soln 20 GM/30 ML UDC PO SCH ×3 (08:25→22:13)
[2019-05-21] MEDS: Folic Acid 1 MG TABLET PO SCH (08:25)
[2019-05-21] MEDS: chlorproMAZINE 25 MG TABLET PO SCH ×3 (08:25→22:14)
[2019-05-21] MEDS: Multivit/Ca/Min/Fe/FA 1 TAB TABLET PO SCH (08:25)
[2019-05-21] MEDS: QUEtiapine Fumarate 25 MG TABLET PO SCH (08:26)
[2019-05-21] MEDS: Famotidine 20 MG TABLET PO SCH ×2 (08:26→22:14)
[2019-05-21] MEDS: Topiramate 100 MG TABLET PO SCH ×2 (08:26→22:14)
[2019-05-21] MEDS: *HR* LORazepam 0.5 MG TABLET PO SCH ×3 (08:26→22:14)
[2019-05-21] MEDS: Gabapentin 400 MG CAPSULE PO SCH ×3 (08:26→22:14)
[2019-05-21] MEDS: Ascorbic Acid 500 MG TABLET PO SCH (08:26)
[2019-05-21] MEDS ORDERED: *HR* SitaGLIPtin 25 MG TABLET PO SCH (09:00)
[2019-05-21 09:37] LABS: Acinetobacter baumannii by PCR Not Detected (Not Detect); Candida albicans by PCR Not Detected (Not Detect); Candida glabrata by PCR Not Detected (Not Detect); Candida krusei by PCR Not Detected (Not Detect); Candida parapsilosis by PCR Not Detected (Not Detect); Candida tropicalis by PCR Not Detected (Not Detect); Enterobacter cloacae Cmplx PCR Not Detected (Not Detect); Enterobacteriaceae by PCR Not Detected (Not Detect); Enterococcus by PCR Not Detected (Not Detect); Escherichia coli by PCR Not Detected (Not Detect); Klebsiella oxytoca by PCR Not Detected (Not Detect); Klebsiella pneumoniae by PCR Not Detected (Not Detect); Proteus by PCR Not Detected (Not Detect); Pseudomonas aeruginosa by PCR Not Detected (Not Detect); Serratia marcescens by PCR Not Detected (Not Detect); Staphylococcus aureus by PCR Not Detected (Not Detect); Staphylococcus by PCR DETECTED (Not Detect); Streptococcus agalactiae(B)PCR Not Detected (Not Detect); Streptococcus by PCR Not Detected (Not Detect); Streptococcus pneumoniae PCR Not Detected (Not Detect); Streptococcus pyogenes (A) PCR Not Detected (Not Detect); mecA Methicillin-Resist Gene DETECTED (Not Detect)
[2019-05-21 10:11] LABS: Basophils % 0.7 %; Eosinophils # 0.2 K/mcL (0.0-0.6); Eosinophils % 4.3 %; Hematocrit 40.3 % (37.5-50.1); Hemoglobin 12.9 g/dL (12.9-16.9); Immature Granulocytes % 0.2 % (0-4); Lymphocytes # 1.5 K/mcL (0.6-4.6); Lymphocytes % 27.4 %; Mean Corpuscular Hemoglobin 25.7 pg (28.0-33.3); Mean Corpuscular Volume 80.4 fL (83.0-100.0); Monocytes # 0.3 K/mcL (0.0-1.3); Monocytes % 6.3 %; Neutrophils # 3.3 K/mcL (1.6-8.9); Red Blood Count 5.01 M/mcL (4.19-5.50); Red Cell Distribution Width 17.5 % (11.5-14.5); Segmented Neutrophils % 61.1 %; White Blood Count 5.4 K/mcL (4.3-11.1)
[2019-05-21 10:13] LABS: Mean Platelet Volume 8.8 fL (9.4-12.4)
[2019-05-21] MEDS ORDERED: E-Z-PAQUE (BARIUM SULF) SUSP 1 BOTTLE PO ONE (12:46)
[2019-05-21] MEDS ORDERED: E-Z-HD (BARIUM SULF) SUSPENSION PO ONE (12:46)
[2019-05-21] MEDS ORDERED: Ketoconazole Shampoo 120 ML BOTTLE TP SCH (14:47)
[2019-05-21] MEDS: *HR* OxyCODONE Immed Rel 5 MG TABLET PO PRN ×2 (15:40→22:38)
[2019-05-21] MEDS: QUEtiapine Fumarate 100 MG TABLET PO SCH (22:13)
[2019-05-21] MEDS: hydrOXYzine pamoate 25 MG CAPSULE PO SCH (22:14)
[2019-05-22] MEDS: Piperacillin/Tazobactam 3.375 GM in 0.9 % Sodium Chloride Mini Bag 100 ML IVPB SCH ×3 (00:10→16:26)
[2019-05-22] MEDS: *HR* OxyCODONE Immed Rel 5 MG TABLET PO PRN ×3 (04:48→18:28)
[2019-05-22 05:39] LABS: Hemoglobin 12.2 g/dL (12.9-16.9); Mean Corpuscular HGB Conc 32.1 g/dL (31.6-35.5); Mean Corpuscular Hemoglobin 25.7 pg (28.0-33.3); Red Blood Count 4.75 M/mcL (4.19-5.50); Red Cell Distribution Width 17.5 % (11.5-14.5); White Blood Count 5.9 K/mcL (4.3-11.1)
[2019-05-22 05:44] LABS: BUN/Creatinine Ratio 8 (6-26); Blood Urea Nitrogen 8 mg/dL (6-20); Calcium 9.2 mg/dL (8.6-10.3); Carbon Dioxide 18 mEq/L (23-29); Chloride 113 mEq/L (98-107); Glucose 126 mg/dL (70-105); Osmolality,Calculated 294 (280-300); Potassium 3.6 mEq/L (3.5-5.1); Sodium 142 mEq/L (136-145); eGFR For African Americans > 60 (> 60); eGFR For Non-African Americans > 60 (> 60)
[2019-05-22] MEDS: Insulin LISPRO 300 UNITS/3 ML VIAL SQ SCH ×4 (08:03→21:49)
[2019-05-22] MEDS ORDERED: Aminoglycoside Consult 1 EACH MC ONE (08:21)
[2019-05-22] MEDS: Gabapentin 400 MG CAPSULE PO SCH ×3 (08:43→21:34)
[2019-05-22] MEDS: Ascorbic Acid 500 MG TABLET PO SCH (08:43)
[2019-05-22] MEDS: Famotidine 20 MG TABLET PO SCH ×2 (08:43→21:35)
[2019-05-22] MEDS: *HR* LORazepam 0.5 MG TABLET PO SCH ×3 (08:43→21:35)
[2019-05-22] MEDS: Multivit/Ca/Min/Fe/FA 1 TAB TABLET PO SCH (08:44)
[2019-05-22] MEDS: Topiramate 100 MG TABLET PO SCH ×2 (08:44→21:34)
[2019-05-22] MEDS: chlorproMAZINE 25 MG TABLET PO SCH ×3 (08:44→21:35)
[2019-05-22] MEDS: Aspirin Enteric Coated 81 MG Tablet PO SCH (08:44)
[2019-05-22] MEDS: QUEtiapine Fumarate 25 MG TABLET PO SCH (08:44)
[2019-05-22] MEDS: Folic Acid 1 MG TABLET PO SCH (08:44)
[2019-05-22] MEDS: Lactulose Oral Soln 20 GM/30 ML UDC PO SCH ×3 (09:02→21:34)
[2019-05-22] MEDS: QUEtiapine Fumarate 100 MG TABLET PO SCH (21:35)
[2019-05-22] MEDS: hydrOXYzine pamoate 25 MG CAPSULE PO SCH (21:35)
[2019-05-23] MEDS: Piperacillin/Tazobactam 3.375 GM in 0.9 % Sodium Chloride Mini Bag 100 ML IVPB SCH ×2 (00:02→10:11)
[2019-05-23] MEDS: *HR* OxyCODONE Immed Rel 5 MG TABLET PO PRN ×2 (06:02→13:34)
[2019-05-23 07:19] LABS: Basophils % 0.5 %; Eosinophils # 0.3 K/mcL (0.0-0.6); Eosinophils % 4.7 %; Hematocrit 41.4 % (37.5-50.1); Immature Granulocytes % 0.2 % (0-4); Lymphocytes % 33.6 %; Mean Corpuscular HGB Conc 31.4 g/dL (31.6-35.5); Mean Corpuscular Hemoglobin 25.4 pg (28.0-33.3); Monocytes # 0.4 K/mcL (0.0-1.3); Monocytes % 6.9 %; Neutrophils # 3.1 K/mcL (1.6-8.9); Red Blood Count 5.11 M/mcL (4.19-5.50); Red Cell Distribution Width 17.4 % (11.5-14.5); Segmented Neutrophils % 54.1 %; White Blood Count 5.8 K/mcL (4.3-11.1)
[2019-05-23 07:36] LABS: BUN/Creatinine Ratio 7 (6-26); Blood Urea Nitrogen 6 mg/dL (6-20); Calcium 9.7 mg/dL (8.6-10.3); Carbon Dioxide 19 mEq/L (23-29); Chloride 111 mEq/L (98-107); Glucose 142 mg/dL (70-105); Osmolality,Calculated 292 (280-300); Potassium 3.8 mEq/L (3.5-5.1); Sodium 141 mEq/L (136-145); eGFR For African Americans > 60 (> 60); eGFR For Non-African Americans > 60 (> 60)
[2019-05-23 08:39] LABS: Mean Platelet Volume 8.5 fL (9.4-12.4)
[2019-05-23] MEDS: Topiramate 100 MG TABLET PO SCH (10:06)
[2019-05-23] MEDS: Famotidine 20 MG TABLET PO SCH (10:06)
[2019-05-23] MEDS: Folic Acid 1 MG TABLET PO SCH (10:06)
[2019-05-23] MEDS: Multivit/Ca/Min/Fe/FA 1 TAB TABLET PO SCH (10:06)
[2019-05-23] MEDS: chlorproMAZINE 25 MG TABLET PO SCH ×2 (10:06→16:37)
[2019-05-23] MEDS: Lactulose Oral Soln 20 GM/30 ML UDC PO SCH (10:06)
[2019-05-23] MEDS: *HR* LORazepam 0.5 MG TABLET PO SCH ×2 (10:06→16:37)
[2019-05-23] MEDS: Ascorbic Acid 500 MG TABLET PO SCH (10:06)
[2019-05-23] MEDS: Insulin LISPRO 300 UNITS/3 ML VIAL SQ SCH ×2 (10:06→12:32)
[2019-05-23] MEDS: QUEtiapine Fumarate 25 MG TABLET PO SCH (10:06)
[2019-05-23] MEDS: Aspirin Enteric Coated 81 MG Tablet PO SCH (10:06)
[2019-05-23] MEDS: Gabapentin 400 MG CAPSULE PO SCH ×2 (10:06→16:37)
[2019-05-23 16:32] VITALS: BP 114/105
== END 2019-05-23 17:45 | DRG 178 ==
LOC: EMEROOARM 00:31 → 2NENU 00:31 → SUATTDRO 04:22 → 2NENU 05:50
PROVIDERS: ADMIT Family Medicine; ATTEND Family Medicine

== ENCOUNTER 2019-06-15 22:19 | Observation (INO) ==
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
[2019-06-15] MEDS ORDERED: *HR* FentaNYL (PF) 100 MCG/2 ML VIAL IVP ONE (23:28)
[2019-06-15] MEDS ORDERED: Isovue-370 500 ML BOTTLE IVP ONE (23:46)
[2019-06-16 00:13] LABS: INR 1.3; Prothrombin Time 14.5 Seconds (9.4-12.1)
[2019-06-16 00:14] LABS: Alanine Aminotransferase 24 Units/L (7-52); Albumin 3.7 g/dL (3.5-5.7); Albumin/Globulin Ratio 1.1 (1.1-2.2); Alkaline Phosphatase 85 Units/L (34-104); Aspartate Amino Transferase 50 Units/L (13-39); BUN/Creatinine Ratio 15 (6-26); Bilirubin,Direct 0.1 mg/dL (0.0-0.2); Bilirubin,Indirect 0.2 mg/dL (0.0-1.2); Bilirubin,Total 0.3 mg/dL (0.3-1.0); Blood Urea Nitrogen 11 mg/dL (6-20); Calcium 9.4 mg/dL (8.6-10.3); Carbon Dioxide 20 mEq/L (23-29); Chloride 115 mEq/L (98-107); Globulin 3.3 g/dL (2.4-3.5); Glucose 80 mg/dL (70-105); Lipase 28 Units/L (11-82); Magnesium 1.7 mg/dL (1.6-2.6); Osmolality,Calculated 298 (280-300); Potassium 4.3 mEq/L (3.5-5.1); Sodium 145 mEq/L (136-145); eGFR For African Americans > 60 (> 60); eGFR For Non-African Americans > 60 (> 60)
[2019-06-16 00:15] LABS: Activated Partial Thrombo Time 48.5 Seconds (26.0-36.0)
[2019-06-16 00:17] LABS: Basophils % 0.3 %; Eosinophils # 0.3 K/mcL (0.0-0.6); Eosinophils % 5.7 %; Hematocrit 43.9 % (37.5-50.1); Hemoglobin 13.8 g/dL (12.9-16.9); Immature Granulocytes % 0.3 % (0-4); Lymphocytes # 2.2 K/mcL (0.6-4.6); Lymphocytes % 37.3 %; Mean Corpuscular HGB Conc 31.4 g/dL (31.6-35.5); Mean Corpuscular Hemoglobin 25.5 pg (28.0-33.3); Mean Corpuscular Volume 81.1 fL (83.0-100.0); Monocytes # 0.3 K/mcL (0.0-1.3); Monocytes % 5.6 %; Red Blood Count 5.41 M/mcL (4.19-5.50); Red Cell Distribution Width 17.4 % (11.5-14.5); Segmented Neutrophils % 50.8 %; White Blood Count 5.8 K/mcL (4.3-11.1)
[2019-06-16 00:22] LABS: Troponin I < 0.03 ng/mL (< 0.04)
[2019-06-16] MEDS ORDERED: Lactulose 200 GM, Sodium Chloride IRRigation 700 ML RC ONE (00:31)
[2019-06-16 01:23] LABS: Mean Platelet Volume 9.9 fL (9.4-12.4)
--- NOTE | 2019-06-16 01:29 | Emergency Department Note ---
Disposition Clinical Impression: Altered mental status Qualifiers: Altered mental status type: disorientation Qualified Code(s): R41.0 - Disorientation, unspecified Disposition: Admitted As Inpatient Condition: Fair Referrals: Ziggy March MD [Primary Care Provider] - Forms: ED Satisfaction Letter, Work/School Release Time of Disposition: 01:29 General Adult HPI - General Chief complaint: ED General Medical Stated complaint: lethargic high blood pressure Time Seen by Provider: 06/15/19 22:46 Source: EMS Mode of arrival: EMS Limitations: altered mental status - History of Present Illness Pain Scale: 0 - Related Data Home Medications Medication Instructions Recorded Confirmed Aspirin Enteric Coated [Aspirin EC] 81 mg PO QAM 04/30/18 05/20/19 Baclofen [Lioresal] 10 mg PO Q8H PRN 04/30/18 05/20/19 Folic Acid 1 mg PO DAILY 04/30/18 05/20/19 Guaifenesin [Tussin Mucus-Chest 100 - 200 mg PO Q6H PRN 04/30/18 05/20/19 Congestion] Insulin Glargine,Hum.rec.anlog 60 unit SQ HS 04/30/18 05/20/19 [Basaglar Kwikpen U-100] Insulin Glargine,Hum.rec.anlog 70 unit SQ DAILY 04/30/18 05/20/19 [Basaglar Kwikpen U-100] Insulin LISPRO [HumaLOG] 2 - 25 units SQ TIDAC 04/30/18 05/20/19 Multivitamin [One Daily Essential] 1 tab PO DAILY 04/30/18 05/20/19 Ranitidine HCl [Acid Glove Cutter] 150 mg PO BID 04/30/18 05/20/19 Topiramate [Topamax] 200 mg PO BID 04/30/18 05/20/19 hydrOXYzine HCl [Hydroxyzine HCl] 25 mg PO HS 04/30/18 05/20/19 metFORMIN [Glucophage] 1,000 mg PO BIDWM 04/30/18 05/20/19 Diclofenac Sodium [Voltaren] 1 appl TD BID 01/20/19 05/20/19 Gabapentin [Neurontin] 800 mg PO TID 01/20/19 05/20/19 Ketoconazole Shampoo [Nizoral 1 appl TP SUTUFR 01/20/19 05/20/19 Shampoo] chlorproMAZINE [Thorazine] 25 mg PO TID 03/08/19 05/20/19 Acetaminophen [Non-Aspirin] 650 mg PO Q4H PRN 03/09/19 05/20/19 Selenium Sulfide [Selrx] 1 appl TP MOTH 03/09/19 05/20/19 Sertraline [Zoloft] 200 mg PO HS 03/09/19 05/20/19 Ascorbate Calcium [Vitamin C] 500 mg PO DAILY 04/10/19 05/20/19 Ipratropium/Albuterol Neb [Duoneb] 3 ml PO Q6H PRN 04/10/19 05/20/19 Quetiapine Fumarate [Seroquel] 50 mg PO QAM 04/10/19 05/20/19 Quetiapine Fumarate [Seroquel] 200 mg PO HS 04/10/19 05/20/19 Sitagliptin Phosphate [Januvia] 50 mg PO DAILY 05/20/19 05/20/19 Previous Rx's Medication Instructions Recorded Ferrous Sulfate [Iron] 325 mg PO DAILY #30 tablet 12/27/18 Lactulose 20 gm PO TID udc 03/11/19 LORazepam [Ativan] 0.5 mg PO TID 3 Days #9 tablet 04/12/19 Oxycodone HCl 5 mg PO Q6H PRN 2 Days #8 tablet 04/12/19 Amwerqlyyacn-Cakx-Lqkaghnc,Iso 3.375 gm IV Q8HR 7 Days #21 05/22/19 [Zosyn 3.375 gm/50 ml Galaxy] froz.piggy LORazepam [Ativan] 0.5 mg PO TID 7 Days #21 tablet 05/23/19 Oxycodone HCl [Oxaydo] 5 mg PO Q6H PRN 7 Days #28 05/23/19 tablet.orl Allergies Allergy/AdvReac Type Severity Reaction Status Date / Time Cyclobenzaprine Allergy Nausea Verified 05/20/19 07:50 [From Flexeril] latex Allergy See Verified 05/20/19 07:50 Comments propoxyphene Allergy Nausea Verified 05/20/19 07:50 [From Darvocet-N] Sulfa (Sulfonamide Allergy Nausea Verified 04/10/19 08:54 Antibiotics) Gastrointestinal: Reports: abdominal pain Musculoskeletal: Reports: other (left arm pain) Past Medical History - Past Medical History Medical history: Reports: cancer, diabetes, hypertension Psychiatric history: Reports: anxiety, bipolar, depression - Social History Smoking Status: Current every day smoker Smokeless Tobacco Status: No Alcohol use: Reports: none Drug use: Reports: none Physical Exam - General Limitations: altered mental status General appearance: alert, in no apparent distress Course Vital Signs Temperature 97.8 F 06/15/19 22:25 Pulse Rate 57 06/15/19 22:25 Respiratory Rate 20 06/15/19 22:25 Blood Pressure 114/79 06/15/19 22:25 O2 Sat by Pulse Oximetry 98 06/15/19 22:25 Temperature 97.8 F 06/15/19 22:25 Pulse Rate 52 06/16/19 01:14 Respiratory Rate 16 06/16/19 01:14 Blood Pressure 120/82 06/16/19 01:14 O2 Sat by Pulse Oximetry 100 06/16/19 01:14 Oxygen Delivery Oxygen Delivery Room Air Medical Decision Making - Lab Data Result diagrams: 06/15/19 23:41 06/15/19 23:41 Lab Results 06/15/19 06/15/19 06/15/19 Range/Units 23:40 23:41 23:41 WBC 5.8 (4.3-11.1) K/mcL RBC 5.41 (4.19-5.50) M/mcL Hgb 13.8 (12.9-16.9) g/dL Hct 43.9 (37.5-50.1) % MCV 81.1 L (83.0-100.0) fL MCH 25.5 L (28.0-33.3) pg MCHC 31.4 L (31.6-35.5) g/dL RDW 17.4 H (11.5-14.5) % Plt Count TNP MPV TNP Immature Gran % 0.3 (0-4) % Seg Neutrophils % 50.8 % Lymphocytes % 37.3 % Monocytes % 5.6 % Eosinophils % 5.7 % Basophils % 0.3 % Neutrophils # 3.0 (1.6-8.9) K/mcL Lymphocytes # 2.2 (0.6-4.6) K/mcL Monocytes # 0.3 (0.0-1.3) K/mcL Eosinophils # 0.3 (0.0-0.6) K/mcL Basophils # 0.0 (0.0-0.2) K/mcL Plt Count ,Citrate (140-400) K/mcL Immature Plt Fraction TNP PT 14.5 H (9.4-12.1) Seconds INR 1.3 APTT 48.5 H (26.0-36.0) Seconds Sodium 145 (136-145) mEq/L Potassium 4.3 (3.5-5.1) mEq/L Chloride 115 H (98-107) mEq/L Carbon Dioxide 20 L (23-29) mEq/L BUN 11 (6-20) mg/dL Creatinine 0.71 (0.70-1.30) mg/dL Est GFR ( Amer) > 60 (> 60) Est GFR (Non-Af Amer) > 60 (> 60) BUN/Creatinine Ratio 15 (6-26) Glucose 80 (70-105) mg/dL Calculated Osmolality 298 (280-300) Lactic Acid (0.5-2.2) mmol/L Calcium 9.4 (8.6-10.3) mg/dL Magnesium 1.7 (1.6-2.6) mg/dL Total Bilirubin 0.3 (0.3-1.0) mg/dL Direct Bilirubin 0.1 (0.0-0.2) mg/dL Indirect Bilirubin 0.2 (0.0-1.2) mg/dL AST 50 H (13-39) Units/L ALT 24 (7-52) Units/L Alkaline Phosphatase 85 (34-104) Units/L Ammonia (16-53) mcmol/L Troponin I < 0.03 (< 0.04) ng/mL Serum Total Protein 7.0 (6.4-8.9) g/dL Albumin 3.7 (3.5-5.7) g/dL Globulin 3.3 (2.4-3.5) g/dL Albumin/Globulin Ratio 1.1 (1.1-2.2) Lipase 28 (11-82) Units/L 06/15/19 06/15/19 06/16/19 Range/Units 23:44 23:44 01:09 WBC (4.3-11.1) K/mcL RBC (4.19-5.50) M/mcL Hgb (12.9-16.9) g/dL Hct (37.5-50.1) % MCV (83.0-100.0) fL MCH (28.0-33.3) pg MCHC (31.6-35.5) g/dL RDW (11.5-14.5) % Plt Count MPV 9.9 Immature Gran % (0-4) % Seg Neutrophils % % Lymphocytes % % Monocytes % % Eosinophils % % Basophils % % Neutrophils # (1.6-8.9) K/mcL Lymphocytes # (0.6-4.6) K/mcL Monocytes # (0.0-1.3) K/mcL Eosinophils # (0.0-0.6) K/mcL Basophils # (0.0-0.2) K/mcL Plt Count ,Citrate 94 L (140-400) K/mcL Immature Plt Fraction PT (9.4-12.1) Seconds INR APTT (26.0-36.0) Seconds Sodium (136-145) mEq/L Potassium (3.5-5.1) mEq/L Chloride (98-107) mEq/L Carbon Dioxide (23-29) mEq/L BUN (6-20) mg/dL Creatinine (0.70-1.30) mg/dL Est GFR ( Amer) (> 60) Est GFR (Non-Af Amer) (> 60) BUN/Creatinine Ratio (6-26) Glucose (70-105) mg/dL Calculated Osmolality (280-300) Lactic Acid 1.5 (0.5-2.2) mmol/L Calcium (8.6-10.3) mg/dL Magnesium (1.6-2.6) mg/dL Total Bilirubin (0.3-1.0) mg/dL Direct Bilirubin (0.0-0.2) mg/dL Indirect Bilirubin (0.0-1.2) mg/dL AST (13-39) Units/L ALT (7-52) Units/L Alkaline Phosphatase (34-104) Units/L Ammonia 73 H (16-53) mcmol/L Troponin I (< 0.04) ng/mL Serum Total Protein (6.4-8.9) g/dL Albumin (3.5-5.7) g/dL Globulin (2.4-3.5) g/dL Albumin/Globulin Ratio (1.1-2.2) Lipase (11-82) Units/L Attestation Statement - Attestation Attestation: I reviewed the residents documentation and agree with the residents assessment and plan of care. I have personally had face to face time with the patient. (Brief History, Brief Exam, and MDM) I personally supervised and was present for the snider/critical portions of the following procedures completed by the resident: (add procedures performed here). accepted sign out from Dr. earnestine Loaiza. Negrita is 43 year old male with cirrhosis that presents with altered mental status and elevted ammonia level, but otherwise has GCS that is fluctuating between 12-14. CTs are pending. Plan is to admit for at the very least altered mental status a possible furhter evaluation with a MRI is need be. In the interim period I have ordered cath urine, ABG.
[2019-06-16] MEDS ORDERED: Piperacillin/Tazobactam 3.375 GM in 0.9 % Sodium Chloride Mini Bag 100 ML IVPB ONE (02:20)
[2019-06-16 02:24] LABS: Bilirubin,Urine Negative (Negative); Blood,Urine Negative (Negative); Clarity,Urine Clear (Clear); Color,Urine Yellow (Yellow); Glucose,Urine (UA) Normal (Normal); Ketones,Urine Negative (Negative); Leukocyte Esterase,Urine Negative (Negative); Nitrite,Urine Negative (Negative); PH,Urine 7.5 pH Units (5.0-8.0); Protein,Urine Negative (Neg-Trace); Specific Gravity,Urine 1.017 (1.010-1.025); Urobilinogen,Urine Normal (Normal)
[2019-06-16 02:51] LABS: ABG Base Excess -4 mEq/L (-2 to 3); ABG HCO3 21 mEq/L (21-27); ABG Oxygen Saturation 95 % (95-98); ABG PCO2 40 mmHg (35-45); ABG PH 7.34 pH Units (7.32-7.45); ABG PO2 82 mmHg (85-104); ABG TCO2 23 mEq/L (20-26)
--- NOTE | 2019-06-16 02:52 | Emergency Department Note ---
Disposition Clinical Impression: Altered mental status Qualifiers: Altered mental status type: disorientation Qualified Code(s): R41.0 - Disorientation, unspecified Disposition: Admitted As Inpatient Condition: Fair Referrals: Ziggy March MD [Primary Care Provider] - Forms: ED Satisfaction Letter, Work/School Release Time of Disposition: 03:10 General Adult HPI - General Chief complaint: ED General Medical Stated complaint: lethargic high blood pressure Time Seen by Provider: 06/15/19 22:46 Source: EMS Mode of arrival: EMS Limitations: altered mental status Nursing Notes Reviewed: Yes Vital Signs Reviewed: Yes - History of Present Illness HPI Narrative: This is a patient I received in sign-out from Dr. Cole, please see her note for full H&P. Pain Scale: 0 - Related Data Home Medications Medication Instructions Recorded Confirmed Aspirin Enteric Coated [Aspirin EC] 81 mg PO QAM 04/30/18 05/20/19 Baclofen [Lioresal] 10 mg PO Q8H PRN 04/30/18 05/20/19 Folic Acid 1 mg PO DAILY 04/30/18 05/20/19 Guaifenesin [Tussin Mucus-Chest 100 - 200 mg PO Q6H PRN 04/30/18 05/20/19 Congestion] Insulin Glargine,Hum.rec.anlog 60 unit SQ HS 04/30/18 05/20/19 [Basaglar Kwikpen U-100] Insulin Glargine,Hum.rec.anlog 70 unit SQ DAILY 04/30/18 05/20/19 [Basaglar Kwikpen U-100] Insulin LISPRO [HumaLOG] 2 - 25 units SQ TIDAC 04/30/18 05/20/19 Multivitamin [One Daily Essential] 1 tab PO DAILY 04/30/18 05/20/19 Ranitidine HCl [Acid Adjuster [employer]] 150 mg PO BID 04/30/18 05/20/19 Topiramate [Topamax] 200 mg PO BID 04/30/18 05/20/19 hydrOXYzine HCl [Hydroxyzine HCl] 25 mg PO HS 04/30/18 05/20/19 metFORMIN [Glucophage] 1,000 mg PO BIDWM 04/30/18 05/20/19 Diclofenac Sodium [Voltaren] 1 appl TD BID 01/20/19 05/20/19 Gabapentin [Neurontin] 800 mg PO TID 01/20/19 05/20/19 Ketoconazole Shampoo [Nizoral 1 appl TP SUTUFR 01/20/19 05/20/19 Shampoo] chlorproMAZINE [Thorazine] 25 mg PO TID 03/08/19 05/20/19 Acetaminophen [Non-Aspirin] 650 mg PO Q4H PRN 03/09/19 05/20/19 Selenium Sulfide [Selrx] 1 appl TP MOTH 03/09/19 05/20/19 Sertraline [Zoloft] 200 mg PO HS 03/09/19 05/20/19 Ascorbate Calcium [Vitamin C] 500 mg PO DAILY 04/10/19 05/20/19 Ipratropium/Albuterol Neb [Duoneb] 3 ml PO Q6H PRN 04/10/19 05/20/19 Quetiapine Fumarate [Seroquel] 50 mg PO QA 04/10/19 05/20/19 Quetiapine Fumarate [Seroquel] 200 mg PO HS 04/10/19 05/20/19 Sitagliptin Phosphate [Januvia] 50 mg PO DAILY 05/20/19 05/20/19 Previous Rx's Medication Instructions Recorded Ferrous Sulfate [Iron] 325 mg PO DAILY #30 tablet 12/27/18 Lactulose 20 gm PO TID udc 03/11/19 LORazepam [Ativan] 0.5 mg PO TID 3 Days #9 tablet 04/12/19 Oxycodone HCl 5 mg PO Q6H PRN 2 Days #8 tablet 04/12/19 Jxhgcouuajok-Siux-Erbsyvmz,Iso 3.375 gm IV Q8HR 7 Days #21 05/22/19 [Zosyn 3.375 gm/50 ml Galaxy] froz.piggy LORazepam [Ativan] 0.5 mg PO TID 7 Days #21 tablet 05/23/19 Oxycodone HCl [Oxaydo] 5 mg PO Q6H PRN 7 Days #28 05/23/19 tablet.orl Allergies Allergy/AdvReac Type Severity Reaction Status Date / Time Cyclobenzaprine Allergy Nausea Verified 05/20/19 07:50 [From Flexeril] latex Allergy See Verified 05/20/19 07:50 Comments propoxyphene Allergy Nausea Verified 05/20/19 07:50 [From Darvocet-N] Sulfa (Sulfonamide Allergy Nausea Verified 04/10/19 08:54 Antibiotics) Gastrointestinal: Reports: abdominal pain Musculoskeletal: Reports: other (left arm pain) Past Medical History - Past Medical History Medical history: Reports: cancer, diabetes, hypertension Psychiatric history: Reports: anxiety, bipolar, depression - Social History Smoking Status: Current every day smoker Smokeless Tobacco Status: No Alcohol use: Reports: none Drug use: Reports: none Physical Exam - General Limitations: altered mental status General appearance: alert, in no apparent distress Course - Consultations Consultation #1: Spoke with Dr. Rosas, Surgery, who states that the patient does not need to have surgery and that his CT findings are not concerning for a surgical problem given his lack of vital sign permutations, lack of leukocytosis, and existence of previous CT scans that show similar findings. Time: 02:48 Vital Signs Temperature 97.8 F 06/15/19 22:25 Pulse Rate 57 06/15/19 22:25 Respiratory Rate 20 06/15/19 22:25 Blood Pressure 114/79 06/15/19 22:25 O2 Sat by Pulse Oximetry 98 06/15/19 22:25 Temperature 97.8 F 06/15/19 22:25 Pulse Rate 55 06/16/19 02:56 Respiratory Rate 18 06/16/19 02:56 Blood Pressure 123/90 06/16/19 02:56 O2 Sat by Pulse Oximetry 100 06/16/19 02:56 Oxygen Delivery Oxygen Delivery Room Air Medical Decision Making - [facility] Narrative Medical decision making narrative: 43M that I received in sign-out from Dr. Cole that presents for AMS that was noted this morning by the RN at his [facility]. Pt has a hx of cirrhosis, chronic GB findings on CT, and frequent episodes of aspiration PNA. He has been awake, but not alert, and is easily aroused. Given pt's elevated ammonia, think his AMS could be related to this finding. Pt was given Zosyn while in the ED to cover for possible aspiration PNA. Pt will be admitted to the hospitalist. Surgery was consulted on the results of the CT, results of the consult are detailed in the course notes. Hospitalist paged at [phone]: Pt admitted to the hospitalist Dr. Yen, who agreed to accept the patient to his service. - Medical Records Medical records reviewed: Yes I reviewed the patient's medical records. - Lab Data Lab results reviewed: Yes I reviewed the patient's lab results. Result diagrams: 06/15/19 23:41 06/15/19 23:41 Lab Results 06/15/19 06/15/19 06/15/19 Range/Units 23:40 23:41 23:41 WBC 5.8 (4.3-11.1) K/mcL RBC 5.41 (4.19-5.50) M/mcL Hgb 13.8 (12.9-16.9) g/dL Hct 43.9 (37.5-50.1) % MCV 81.1 L (83.0-100.0) fL MCH 25.5 L (28.0-33.3) pg MCHC 31.4 L (31.6-35.5) g/dL RDW 17.4 H (11.5-14.5) % Plt Count TNP MPV TNP Immature Gran % 0.3 (0-4) % Seg Neutrophils % 50.8 % Lymphocytes % 37.3 % Monocytes % 5.6 % Eosinophils % 5.7 % Basophils % 0.3 % Neutrophils # 3.0 (1.6-8.9) K/mcL Lymphocytes # 2.2 (0.6-4.6) K/mcL Monocytes # 0.3 (0.0-1.3) K/mcL Eosinophils # 0.3 (0.0-0.6) K/mcL Basophils # 0.0 (0.0-0.2) K/mcL Plt Count ,Citrate (140-400) K/mcL Immature Plt Fraction TNP PT 14.5 H (9.4-12.1) Seconds INR 1.3 APTT 48.5 H (26.0-36.0) Seconds ABG pH (7.32-7.45) pH Units ABG pCO2 (35-45) mmHg ABG pO2 (85-104) mmHg ABG HCO3 (21-27) mEq/L ABG Total CO2 (20-26) mEq/L ABG O2 Saturation (95-98) % ABG Base Excess (-2 to 3) mEq/L Inspired O2 (1-15=lpm [id number]=%) Sodium 145 (136-145) mEq/L Potassium 4.3 (3.5-5.1) mEq/L Chloride 115 H (98-107) mEq/L Carbon Dioxide 20 L (23-29) mEq/L BUN 11 (6-20) mg/dL Creatinine 0.71 (0.70-1.30) mg/dL Est GFR ( Amer) > 60 (> 60) Est GFR (Non-Af Amer) > 60 (> 60) BUN/Creatinine Ratio 15 (6-26) Glucose 80 (70-105) mg/dL Calculated Osmolality 298 (280-300) Lactic Acid (0.5-2.2) mmol/L Calcium 9.4 (8.6-10.3) mg/dL Magnesium 1.7 (1.6-2.6) mg/dL Total Bilirubin 0.3 (0.3-1.0) mg/dL Direct Bilirubin 0.1 (0.0-0.2) mg/dL Indirect Bilirubin 0.2 (0.0-1.2) mg/dL AST 50 H (13-39) Units/L ALT 24 (7-52) Units/L Alkaline Phosphatase 85 (34-104) Units/L Ammonia (16-53) mcmol/L Troponin I < 0.03 (< 0.04) ng/mL Serum Total Protein 7.0 (6.4-8.9) g/dL Albumin 3.7 (3.5-5.7) g/dL Globulin 3.3 (2.4-3.5) g/dL Albumin/Globulin Ratio 1.1 (1.1-2.2) Lipase 28 (11-82) Units/L Urine Color (Yellow) Urine Clarity (Clear) Urine pH (5.0-8.0) pH Units Ur Specific Fate (1.010-1.025) Urine Protein (Neg-Trace) mg/dL Urine Glucose (UA) (Normal) mg/dL Urine Ketones (Negative) mg/dL Urine Blood (Negative) Urine Nitrite (Negative) Urine Bilirubin (Negative) Urine Urobilinogen (Normal) mg/dL Ur Leukocyte Esterase (Negative) Ur Culture Indicated? (NO) 06/15/19 06/15/19 06/16/19 Range/Units 23:44 23:44 01:09 WBC (4.3-11.1) K/mcL RBC (4.19-5.50) M/mcL Hgb (12.9-16.9) g/dL Hct (37.5-50.1) % MCV (83.0-100.0) fL MCH (28.0-33.3) pg MCHC (31.6-35.5) g/dL RDW (11.5-14.5) % Plt Count MPV 9.9 Immature Gran % (0-4) % Seg Neutrophils % % Lymphocytes % % Monocytes % % Eosinophils % % Basophils % % Neutrophils # (1.6-8.9) K/mcL Lymphocytes # (0.6-4.6) K/mcL Monocytes # (0.0-1.3) K/mcL Eosinophils # (0.0-0.6) K/mcL Basophils # (0.0-0.2) K/mcL Plt Count ,Citrate 94 L (140-400) K/mcL Immature Plt Fraction PT (9.4-12.1) Seconds INR APTT (26.0-36.0) Seconds ABG pH (7.32-7.45) pH Units ABG pCO2 (35-45) mmHg ABG pO2 (85-104) mmHg ABG HCO3 (21-27) mEq/L ABG Total CO2 (20-26) mEq/L ABG O2 Saturation (95-98) % ABG Base Excess (-2 to 3) mEq/L Inspired O2 (1-15=lpm [id number]=%) Sodium (136-145) mEq/L Potassium (3.5-5.1) mEq/L Chloride (98-107) mEq/L Carbon Dioxide (23-29) mEq/L BUN (6-20) mg/dL Creatinine (0.70-1.30) mg/dL Est GFR ( Amer) (> 60) Est GFR (Non-Af Amer) (> 60) BUN/Creatinine Ratio (6-26) Glucose (70-105) mg/dL Calculated Osmolality (280-300) Lactic Acid 1.5 (0.5-2.2) mmol/L Calcium (8.6-10.3) mg/dL Magnesium (1.6-2.6) mg/dL Total Bilirubin (0.3-1.0) mg/dL Direct Bilirubin (0.0-0.2) mg/dL Indirect Bilirubin (0.0-1.2) mg/dL AST (13-39) Units/L ALT (7-52) Units/L Alkaline Phosphatase (34-104) Units/L Ammonia 73 H (16-53) mcmol/L Troponin I (< 0.04) ng/mL Serum Total Protein (6.4-8.9) g/dL Albumin (3.5-5.7) g/dL Globulin (2.4-3.5) g/dL Albumin/Globulin Ratio (1.1-2.2) Lipase (11-82) Units/L Urine Color (Yellow) Urine Clarity (Clear) Urine pH (5.0-8.0) pH Units Ur Specific Fate (1.010-1.025) Urine Protein (Neg-Trace) mg/dL Urine Glucose (UA) (Normal) mg/dL Urine Ketones (Negative) mg/dL Urine Blood (Negative) Urine Nitrite (Negative) Urine Bilirubin (Negative) Urine Urobilinogen (Normal) mg/dL Ur Leukocyte Esterase (Negative) Ur Culture Indicated? (NO) 06/16/19 06/16/19 Range/Units 02:13 02:48 WBC (4.3-11.1) K/mcL RBC (4.19-5.50) M/mcL Hgb (12.9-16.9) g/dL Hct (37.5-50.1) % MCV (83.0-100.0) fL MCH (28.0-33.3) pg MCHC (31.6-35.5) g/dL RDW (11.5-14.5) % Plt Count MPV Immature Gran % (0-4) % Seg Neutrophils % % Lymphocytes % % Monocytes % % Eosinophils % % Basophils % % Neutrophils # (1.6-8.9) K/mcL Lymphocytes # (0.6-4.6) K/mcL Monocytes # (0.0-1.3) K/mcL Eosinophils # (0.0-0.6) K/mcL Basophils # (0.0-0.2) K/mcL Plt Count ,Citrate (140-400) K/mcL Immature Plt Fraction PT (9.4-12.1) Seconds INR APTT (26.0-36.0) Seconds ABG pH 7.34 (7.32-7.45) pH Units ABG pCO2 40 (35-45) mmHg ABG pO2 82 L (85-104) mmHg ABG HCO3 21 (21-27) mEq/L ABG Total CO2 23 (20-26) mEq/L ABG O2 Saturation 95 (95-98) % ABG Base Excess -4 L (-2 to 3) mEq/L Inspired O2 21.0 (1-15=lpm vm70-301=%) Sodium (136-145) mEq/L Potassium (3.5-5.1) mEq/L Chloride (98-107) mEq/L Carbon Dioxide (23-29) mEq/L BUN (6-20) mg/dL Creatinine (0.70-1.30) mg/dL Est GFR ( Amer) (> 60) Est GFR (Non-Af Amer) (> 60) BUN/Creatinine Ratio (6-26) Glucose (70-105) mg/dL Calculated Osmolality (280-300) Lactic Acid (0.5-2.2) mmol/L Calcium (8.6-10.3) mg/dL Magnesium (1.6-2.6) mg/dL Total Bilirubin (0.3-1.0) mg/dL Direct Bilirubin (0.0-0.2) mg/dL Indirect Bilirubin (0.0-1.2) mg/dL AST (13-39) Units/L ALT (7-52) Units/L Alkaline Phosphatase (34-104) Units/L Ammonia (16-53) mcmol/L Troponin I (< 0.04) ng/mL Serum Total Protein (6.4-8.9) g/dL Albumin (3.5-5.7) g/dL Globulin (2.4-3.5) g/dL Albumin/Globulin Ratio (1.1-2.2) Lipase (11-82) Units/L Urine Color Yellow (Yellow) Urine Clarity Clear (Clear) Urine pH 7.5 (5.0-8.0) pH Units Ur Specific Fate 1.017 (1.010-1.025) Urine Protein Negative (Neg-Trace) mg/dL Urine Glucose (UA) Normal (Normal) mg/dL Urine Ketones Negative (Negative) mg/dL Urine Blood Negative (Negative) Urine Nitrite Negative (Negative) Urine Bilirubin Negative (Negative) Urine Urobilinogen Normal (Normal) mg/dL Ur Leukocyte Esterase Negative (Negative) Ur Culture Indicated? NO (NO) - Radiology Data Radiology results reviewed: Yes I reviewed the patient's radiology results. Chest X-Ray 06/15/19 23:22 IMPRESSION: No acute cardiopulmonary disease D/ / Dipak Jansen MD / Dipak Jansen MD Interpreting Provider: Dipak Jansen MD Abdomen/Pelvis CT 06/16/19 01:42 IMPRESSION: CHEST Persistent centrilobular nodularity at the lung bases, suspicious for a chronic infectious/or inflammatory bronchiolitis. Consider aspiration sequela in etiology given tracheal secretions and esophageal features of dysmotility. Basal predominant airway inflammation may be related. There may be a component of pulmonary edema. Stable pulmonary nodules from 05/21/2019, though demonstrating slow enlargement over multiple earlier exams. Differential considerations would include noncalcifing granulomas, hyalinized and granulomas, less likely metastatic disease, possibly diffuse pulmonary neuroendocrine cell hyperplasia (DIPNEC) given mosaic attenuation although this would be unusual in a male. ABDOMEN/PELVIS Distended gallbladder with some pericholecystic fluid, raising concern for acute cholecystitis. Some prior exams have demonstrated similar features, however. Cirrhosis with features of portal venous hypertension. Moderate to large colonic stool volume. Query constipation. D/ / Hola Sawyer / Hola Sawyer Interpreting Provider: Hola Sawyer Chest CT 06/16/19 01:42 IMPRESSION: CHEST Persistent centrilobular nodularity at the lung bases, suspicious for a chronic infectious/or inflammatory bronchiolitis. Consider aspiration sequela in etiology given tracheal secretions and esophageal features of dysmotility. Basal predominant airway inflammation may be related. There may be a component of pulmonary edema. Stable pulmonary nodules from 05/21/2019, though demonstrating slow enlargement over multiple earlier exams. Differential considerations would include noncalcifing granulomas, hyalinized and granulomas, less likely metastatic disease, possibly diffuse pulmonary neuroendocrine cell hyperplasia (DIPNEC) given mosaic attenuation although this would be unusual in a male. ABDOMEN/PELVIS Distended gallbladder with some pericholecystic fluid, raising concern for acute cholecystitis. Some prior exams have demonstrated similar features, however. Cirrhosis with features of portal venous hypertension. Moderate to large colonic stool volume. Query constipation. D/ / Hola Sawyer / Hola Sawyer Interpreting Provider: Hola Sawyer Head CT 06/16/19 02:00 IMPRESSION: No acute intracranial abnormality. D/ / Fernando Sykes MD / Fernando Sykes MD Interpreting Provider: Fernando Sykes MD
[2019-06-16] MEDS ORDERED: Naloxone 0.4 MG/ML INJ IVP PRN (08:04)
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
[2019-06-16] MEDS ORDERED: Ketoconazole Shampoo 120 ML BOTTLE TP SCH (08:30)
[2019-06-16] MEDS: Lactulose Oral Soln 20 GM/30 ML UDC PO SCH ×3 (09:00→23:20)
[2019-06-16] MEDS ORDERED: *HR* FentaNYL (PF) 100 MCG/2 ML VIAL IVP ONE (09:24)
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
[2019-06-16] MEDS ORDERED: D5% in Water 1,000 ML IVC PRN (11:53)
[2019-06-16] MEDS ORDERED: Dextrose Gel 15 GM/37.5 ML TUBE PO PRN ×2 (11:53)
[2019-06-16] MEDS ORDERED: *HR* Dextrose 50 % in Water (Syg) 50 ML SYRINGE IVP PRN (11:53)
[2019-06-16] MEDS: Topiramate 100 MG TABLET PO SCH ×2 (12:15→20:51)
[2019-06-16] MEDS: Aspirin Enteric Coated 81 MG Tablet PO SCH (12:15)
[2019-06-16] MEDS: chlorproMAZINE 25 MG TABLET PO SCH ×3 (12:15→20:56)
[2019-06-16] MEDS: Folic Acid 1 MG TABLET PO SCH (12:15)
[2019-06-16] MEDS: Famotidine 20 MG TABLET PO SCH ×2 (12:15→20:51)
[2019-06-16] MEDS: Insulin LISPRO 300 UNITS/3 ML VIAL SQ SCH ×2 (17:00→23:21)
[2019-06-16] MEDS: hydrOXYzine pamoate 25 MG CAPSULE PO SCH (20:51)
[2019-06-17] MEDS: Famotidine 20 MG TABLET PO SCH ×2 (08:07→19:41)
[2019-06-17] MEDS: Folic Acid 1 MG TABLET PO SCH (08:07)
[2019-06-17] MEDS: chlorproMAZINE 25 MG TABLET PO SCH ×3 (08:07→19:40)
[2019-06-17] MEDS: Topiramate 100 MG TABLET PO SCH ×2 (08:07→19:40)
[2019-06-17] MEDS: Aspirin Enteric Coated 81 MG Tablet PO SCH (08:07)
[2019-06-17] MEDS: Insulin LISPRO 300 UNITS/3 ML VIAL SQ SCH ×4 (08:08→21:50)
[2019-06-17] MEDS: Lactulose Oral Soln 20 GM/30 ML UDC PO SCH ×2 (08:11→19:23)
[2019-06-17] MEDS ORDERED: Ondansetron 4 MG/2 ML VIAL IVP PRN (10:33)
[2019-06-17] MEDS ORDERED: Acetaminophen 325 MG TABLET PO PRN (10:51)
[2019-06-17] MEDS ORDERED: Ipratropium/Albuterol Neb 3 ML IH PRN (10:51)
[2019-06-17] MEDS: *HR* OxyCODONE Immed Rel 5 MG TABLET PO PRN ×2 (11:13→19:42)
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
[2019-06-17] MEDS ORDERED: *HR* LORazepam 2 MG/ML VIAL IVP PRN (12:30)
[2019-06-17] MEDS: Ampicillin/Sulbactam 1,500 MG in 0.9 % Sodium Chloride Mini Bag 100 ML IVPB SCH ×2 (13:41→19:42)
[2019-06-17] MEDS ORDERED: Lactulose Oral Soln 20 GM/30 ML UDC PO PRN (15:19)
[2019-06-17] MEDS: Gabapentin 400 MG CAPSULE PO SCH ×2 (15:26→19:41)
--- NOTE | 2019-06-17 18:29 | Electrocardiograph Report ---
[address] [address] Test Date: 2019-06-15 Pat Name: [facility] Department: [id number] Room: 3B12 Gender: Director General: : 1975 Requested By: Mari Cole Order Number: [id number] Reading MD: Gideon Hogdes Measurements Intervals Orla Rate: 60 P: 43 VT: 135 QRS: 97 QRSD: 107 T: 41 QT: 426 QTc: 426 Interpretive Statements Sinus rhythm Borderline right axis deviation Electronically Signed On 06-17-2019 16:28:29 EDT by Gideon Hodges
[2019-06-17] MEDS: hydrOXYzine pamoate 25 MG CAPSULE PO SCH (19:40)
[2019-06-18] MEDS: Ampicillin/Sulbactam 1,500 MG in 0.9 % Sodium Chloride Mini Bag 100 ML IVPB SCH ×2 (00:24→05:01)
[2019-06-18] MEDS: Baclofen 10 MG TABLET PO PRN ×2 (01:35→10:41)
[2019-06-18 01:44] LABS: Hematocrit 41.5 % (37.5-50.1); Hemoglobin 12.9 g/dL (12.9-16.9); Immature Platelets 2.2 % (1.1-6.1); Mean Corpuscular HGB Conc 31.1 g/dL (31.6-35.5); Mean Corpuscular Volume 80.3 fL (83.0-100.0); Red Blood Count 5.17 M/mcL (4.19-5.50); Red Cell Distribution Width 16.6 % (11.5-14.5); White Blood Count 6.8 K/mcL (4.3-11.1)
[2019-06-18 01:48] LABS: Platelet Count 93 K/mcL (140-400)
[2019-06-18 01:53] LABS: BUN/Creatinine Ratio 9 (6-26); Blood Urea Nitrogen 7 mg/dL (6-20); Calcium 9.4 mg/dL (8.6-10.3); Carbon Dioxide 22 mEq/L (23-29); Chloride 112 mEq/L (98-107); Glucose 139 mg/dL (70-105); Magnesium 1.8 mg/dL (1.6-2.6); Osmolality,Calculated 290 (280-300); Potassium 3.9 mEq/L (3.5-5.1); Sodium 140 mEq/L (136-145); eGFR For African Americans > 60 (> 60); eGFR For Non-African Americans > 60 (> 60)
[2019-06-18] MEDS: *HR* OxyCODONE Immed Rel 5 MG TABLET PO PRN (05:01)
[2019-06-18 07:25] VITALS: BP 110/72
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
[2019-06-18] MEDS: Gabapentin 400 MG CAPSULE PO SCH (09:00)
[2019-06-18] MEDS: Famotidine 20 MG TABLET PO SCH (09:00)
[2019-06-18] MEDS: chlorproMAZINE 25 MG TABLET PO SCH (09:00)
[2019-06-18] MEDS: Aspirin Enteric Coated 81 MG Tablet PO SCH (09:00)
[2019-06-18] MEDS ORDERED: Ascorbic Acid 500 MG TABLET PO SCH (09:00)
[2019-06-18] MEDS: Topiramate 100 MG TABLET PO SCH (09:01)
[2019-06-18] MEDS: Folic Acid 1 MG TABLET PO SCH (09:01)
[2019-06-18] MEDS: Insulin LISPRO 300 UNITS/3 ML VIAL SQ SCH (09:12)
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
--- NOTE | 2019-06-18 09:51 | Physician Discharge Referral ---
ExtendedCare Referral Info Transfer To: [facility] Provider in Charge after Transfer: PCP Institutional Level of Care: Skilled - Diagnosis (1) Altered mental status Status: Acute (2) Aspiration pneumonia Status: Acute (3) Increased ammonia level Status: Acute (4) Hypoxia Status: Acute (5) Cirrhosis Status: Chronic (6) Diabetes mellitus Status: Chronic (7) Dysphagia Status: Chronic (8) Thrombocytopenia Status: Chronic (9) Protein-calorie malnutrition, severe Status: Acute - Transfer Medications Prescriptions: Lactobacillus Acidophilus [Acidophilus] 1 each PO BID #10 capsule Prescription Printed LORazepam [Ativan] 0.5 mg PO TID PRN 5 Days #15 tablet PRN Reason: Anxiety Prescription Printed Amoxicillin/Clavulanate [Augmentin] 875 mg PO BIDWM #10 tablet Prescription Printed Gabapentin [Neurontin] 400 mg PO TID 7 Days #21 capsule Prescription Printed Oxycodone HCl [Oxaydo] 5 mg PO Q8HR PRN 5 Days #15 tablet.orl PRN Reason: Pain Prescription Printed Home Medications: Aspirin Enteric Coated [Aspirin EC] 81 mg PO QAM 04/30/18 [History] Baclofen [Lioresal] 10 mg PO Q8H PRN 04/30/18 [History] Folic Acid 1 mg PO DAILY 04/30/18 [History] Guaifenesin [Tussin Mucus-Chest Congestion] 100 - 200 mg PO Q6H PRN 04/30/18 [History] Insulin Glargine,Hum.rec.anlog [Basaglar Kwikpen U-100] 60 unit SQ HS 04/30/18 [History] Insulin Glargine,Hum.rec.anlog [Basaglar Kwikpen U-100] 70 unit SQ QAM 04/30/18 [History] Insulin LISPRO [HumaLOG] 2 - 25 units SQ TIDAC 04/30/18 [History] Multivitamin [One Daily Essential] 1 tab PO DAILY 04/30/18 [History] Ranitidine HCl [Acid Raisin Washer] 150 mg PO BID 04/30/18 [History] Topiramate [Topamax] 200 mg PO BID 04/30/18 [History] metFORMIN [Glucophage] 1,000 mg PO BIDWM 04/30/18 [History] Ferrous Sulfate [Iron] 325 mg PO DAILY #30 tablet 12/27/18 [Rx] Diclofenac Sodium [Voltaren] 1 appl TD BID 01/20/19 [History] Ketoconazole Shampoo [Nizoral Shampoo] 1 appl TP SUTUFR 01/20/19 [History] Acetaminophen [Non-Aspirin] 650 mg PO Q4H PRN 03/09/19 [History] Selenium Sulfide [Selrx] 1 appl TP MOTH 03/09/19 [History] Sertraline [Zoloft] 200 mg PO HS 03/09/19 [History] Lactulose 20 gm PO TID udc 03/11/19 [Rx] Ascorbate Calcium [Vitamin C] 500 mg PO DAILY 04/10/19 [History] Ipratropium/Albuterol Neb [Duoneb] 3 ml PO Q6H PRN 04/10/19 [History] Quetiapine Fumarate [Seroquel] 50 mg PO QAM 04/10/19 [History] Quetiapine Fumarate [Seroquel] 200 mg PO HS 04/10/19 [History] Sitagliptin Phosphate [Januvia] 50 mg PO DAILY 05/20/19 [History] Amoxicillin/Clavulanate [Augmentin] 875 mg PO BIDWM #10 tablet 06/18/19 [Rx] Gabapentin [Neurontin] 400 mg PO TID 7 Days #21 capsule 06/18/19 [Rx] LORazepam [Ativan] 0.5 mg PO TID PRN 5 Days #15 tablet 06/18/19 [Rx] Lactobacillus Acidophilus [Acidophilus] 1 each PO BID #10 capsule 06/18/19 [Rx] Oxycodone HCl [Oxaydo] 5 mg PO Q8HR PRN 5 Days #15 tablet.orl 06/18/19 [Rx] Allergies/Adverse Reactions: Allergy/AdvReac Type Severity Reaction Status Date / Time Cyclobenzaprine Allergy Nausea Verified 05/20/19 07:50 [From Flexeril] latex Allergy See Verified 05/20/19 07:50 Comments propoxyphene Allergy Nausea Verified 05/20/19 07:50 [From Darvocet-N] Sulfa (Sulfonamide Allergy Nausea Verified 04/10/19 08:54 Antibiotics) - Respiratory Orders Smoking Cessation: Smoking cessation has been advised. For more information, call the [place] Tobacco Quit Line at 4-848-QFRE-NOW. CERTIFICATION: I certify that the transfer of the above named patient to an Extended Care Facility is necessary for the continuing treatment of the diagnosis listed. The above information is true and accurate reflection of patient's current condition. Confidential - Redisclosure prohibited without a patient's written consent.
== END 2019-06-18 11:20 ==
LOC: EMEROOARM 22:19 → 3BNU 22:19 → SUATTDRO 06-16 03:30 → 3BNU 06-16 05:18
PROVIDERS: ADMIT Internal Medicine; ATTEND Family Medicine

== ENCOUNTER 2019-11-22 16:10 | Inpatient (IN) ==
[2019-11-22] MEDS ORDERED: 0.9 % Sodium Chloride 2,000 ML ONE (16:30)
[2019-11-22] MEDS ORDERED: Ipratropium/Albuterol Neb 3 ML ONE (16:35)
[2019-11-22] MEDS ORDERED: Piperacillin/Tazobactam 3.375 GM in Water for inj. (sterile) 20 ML IVP ONE (16:38)
[2019-11-22] MEDS ORDERED: Vancomycin 1,000 MG VIAL IVPB ONE (16:38)
[2019-11-22] MEDS ORDERED: 0.9 % Sodium Chloride 250 ML ONE (16:55)
[2019-11-22] MEDS ORDERED: *HR* FentaNYL (PF) 1,000 MCG/20 ML VIAL ONE (16:56)
[2019-11-22 16:58] LABS: Basophils % 0.2 %; Eosinophils # 0.3 K/mcL (0.0-0.6); Eosinophils % 2.4 %; Hematocrit 34.3 % (37.5-50.1); Immature Granulocytes % 0.9 % (0-4); Immature Platelets 2.2 % (1.1-6.1); Lymphocytes % 17.1 %; Mean Corpuscular HGB Conc 29.2 g/dL (31.6-35.5); Mean Corpuscular Hemoglobin 20.5 pg (28.0-33.3); Mean Corpuscular Volume 70.4 fL (83.0-100.0); Mean Platelet Volume 10.4 fL (9.4-12.4); Monocytes # 0.8 K/mcL (0.0-1.3); Neutrophils # 8.3 K/mcL (1.6-8.9); Platelet Count 156 K/mcL (140-400); Red Blood Count 4.87 M/mcL (4.19-5.50); Red Cell Distribution Width 18.4 % (11.5-14.5); Segmented Neutrophils % 72.4 %; White Blood Count 11.4 K/mcL (4.3-11.1)
[2019-11-22] MEDS: FentaNYL (PF) 1,000 MCG in 0.9 % Sodium Chloride 80 ML IVC SCH (17:09)
[2019-11-22 17:18] LABS: BUN/Creatinine Ratio 13 (6-26); Blood Urea Nitrogen 17 mg/dL (6-20); Calcium 8.8 mg/dL (8.6-10.3); Carbon Dioxide 22 mEq/L (23-29); Chloride 107 mEq/L (98-107); Glucose 124 mg/dL (70-105); Osmolality,Calculated 289 (280-300); Potassium 4.6 mEq/L (3.5-5.1); Sodium 138 mEq/L (136-145); eGFR For African Americans > 60 (> 60); eGFR For Non-African Americans 59 (> 60)
[2019-11-22 17:20] LABS: Troponin I 0.17 ng/mL (< 0.04)
[2019-11-22 17:25] LABS: ABG Base Excess -4 mEq/L (-2 to 3); ABG HCO3 23 mEq/L (21-27); ABG Oxygen Saturation 100 % (95-98); ABG PCO2 49 mmHg (35-45); ABG PH 7.27 pH Units (7.32-7.45); ABG PO2 440 mmHg (85-104); ABG TCO2 24 mEq/L (20-26); Blood Gas Modality ASSIST CONTROL; Blood Gas VT 500 cc
[2019-11-22 17:25] LABS: INR 1.8; Prothrombin Time 20.3 Seconds (9.4-12.1)
[2019-11-22 17:28] LABS: Activated Partial Thrombo Time 30.5 Seconds (26.0-36.0)
[2019-11-22] MEDS ORDERED: 0.9 % Sodium Chloride 1,000 ML IV ONE (18:52)
[2019-11-22 18:53] LABS: Bilirubin,Urine Small (Negative); Blood,Urine Negative (Negative); Clarity,Urine Clear (Clear); Color,Urine Dark Yellow (Yellow); Glucose,Urine (UA) Normal (Normal); Ketones,Urine Negative (Negative); Leukocyte Esterase,Urine Negative (Negative); Nitrite,Urine Negative (Negative); PH,Urine 5.5 pH Units (5.0-8.0); Protein,Urine Trace mg/dL (Neg-Trace); Specific Gravity,Urine 1.024 (1.010-1.025); Urobilinogen,Urine Normal (Normal)
[2019-11-22] MEDS ORDERED: Naloxone 0.4 MG/ML INJ IVP PRN (19:14)
[2019-11-22] MEDS ORDERED: Artificial Tears SOLN 15 ML BOTTLE BOTH EYES PRN (19:25)
[2019-11-22] MEDS ORDERED: Vancomycin (wt based) 1,000 MG VIAL IVPB SCH (20:00)
[2019-11-22] MEDS ORDERED: Dextrose Gel 15 GM/37.5 ML TUBE PO PRN ×2 (20:03)
[2019-11-22] MEDS ORDERED: D5% in Water 1,000 ML IVC PRN (20:03)
[2019-11-22] MEDS ORDERED: *HR* LORazepam 2 MG/ML VIAL IVP PRN (20:13)
[2019-11-22 21:08] LABS: ABG Base Excess -4 mEq/L (-2 to 3); ABG HCO3 23 mEq/L (21-27); ABG Oxygen Saturation 94 % (95-98); ABG PCO2 50 mmHg (35-45); ABG PH 7.27 pH Units (7.32-7.45); ABG PO2 80 mmHg (85-104); ABG TCO2 25 mEq/L (20-26); Blood Gas VT 500 cc
[2019-11-22] MEDS: Ipratropium/Albuterol Neb 3 ML IH SCH ×2 (21:28→23:43)
[2019-11-22] MEDS ORDERED: 0.9 % Sodium Chloride 1,000 ML IVC SCH (21:30)
[2019-11-22] MEDS: Lactulose Oral Soln 20 GM/30 ML UDC PO SCH (21:32)
[2019-11-22] MEDS: Oseltamivir 6 MG/ML UDC PO SCH (21:32)
[2019-11-22] MEDS: Chlorhexidine Rinse 15 ML MOUTHWASH MM SCH (21:34)
[2019-11-22] MEDS: Artificial Tears SOLN 15 ML BOTTLE BOTH EYES SCH ×2 (21:34→23:48)
[2019-11-22] MEDS: Piperacillin/Tazobactam 3.375 GM in 0.9 % Sodium Chloride Mini Bag 100 ML IVPB SCH (23:47)
[2019-11-22] MEDS: Insulin LISPRO 300 UNITS/3 ML VIAL SQ SCH (23:48)
[2019-11-23 01:08] LABS: Adenovirus Not Detected (Not Detect); Bordetella Pertussis Not Detected (Not Detect); Chlamydophila pneumoniae Not Detected (Not Detect); Coronavirus 229E Not Detected (Not Detect); Coronavirus HKU1 Not Detected (Not Detect); Coronavirus NL63 Not Detected (Not Detect); Coronavirus OC43 Not Detected (Not Detect); Human Metapneumovirus DETECTED (Not Detect); Human Rhinovirus/Enterovirus Not Detected (Not Detect); Influenza A Subtype 2009 H1 Not Detected (Not Detect); Influenza B Not Detected (Not Detect); Mycoplasma pneumoniae Not Detected (Not Detect); Parainfluenza Virus 1 Not Detected (Not Detect); Parainfluenza Virus 2 Not Detected (Not Detect); Parainfluenza Virus 3 Not Detected (Not Detect); Parainfluenza Virus 4 Not Detected (Not Detect); Respiratory Syncytial Virus Not Detected (Not Detect)
[2019-11-23] MEDS: Artificial Tears SOLN 15 ML BOTTLE BOTH EYES SCH ×5 (03:12→21:54)
[2019-11-23] MEDS: Ipratropium/Albuterol Neb 3 ML IH SCH ×6 (03:24→23:38)
[2019-11-23 05:15] LABS: ABG Base Excess -1 mEq/L (-2 to 3); ABG HCO3 26 mEq/L (21-27); ABG Oxygen Saturation 95 % (95-98); ABG PCO2 56 mmHg (35-45); ABG PH 7.28 pH Units (7.32-7.45); ABG PO2 87 mmHg (85-104); ABG TCO2 28 mEq/L (20-26); Blood Gas Modality ASSIST CONTROL; Blood Gas VT 500 cc
[2019-11-23] MEDS: Insulin LISPRO 300 UNITS/3 ML VIAL SQ SCH ×3 (05:34→17:29)
[2019-11-23] MEDS: *HR* Enoxaparin 40 MG/0.4 ML SYRINGE SQ SCH (05:58)
[2019-11-23] MEDS: FentaNYL (PF) 1,000 MCG in 0.9 % Sodium Chloride 80 ML IVC SCH ×2 (05:59→16:15)
[2019-11-23] MEDS ORDERED: Doxycycline 100 MG in 0.9 % Sodium Chloride Mini Bag 100 ML IVPB SCH (06:00)
[2019-11-23 06:05] LABS: Basophils % 0.3 %; Eosinophils # 0.2 K/mcL (0.0-0.6); Hematocrit 33.3 % (37.5-50.1); Hemoglobin 9.5 g/dL (12.9-16.9); Immature Granulocytes % 0.7 % (0-4); Lymphocytes # 1.1 K/mcL (0.6-4.6); Lymphocytes % 10.3 %; Mean Corpuscular HGB Conc 28.5 g/dL (31.6-35.5); Mean Corpuscular Hemoglobin 20.7 pg (28.0-33.3); Mean Corpuscular Volume 72.4 fL (83.0-100.0); Monocytes # 0.5 K/mcL (0.0-1.3); Monocytes % 5.1 %; Neutrophils # 8.7 K/mcL (1.6-8.9); Nucleated Red Blood Cells 0.2 /100 WBC (0); Red Cell Distribution Width 18.6 % (11.5-14.5); Segmented Neutrophils % 81.6 %; White Blood Count 10.6 K/mcL (4.3-11.1)
[2019-11-23 06:06] LABS: Platelet Count 93 K/mcL (140-400)
[2019-11-23 06:14] LABS: BUN/Creatinine Ratio 19 (6-26); Blood Urea Nitrogen 18 mg/dL (6-20); Carbon Dioxide 21 mEq/L (23-29); Chloride 113 mEq/L (98-107); Glucose 83 mg/dL (70-105); Magnesium 1.4 mg/dL (1.6-2.6); Osmolality,Calculated 293 (280-300); Potassium 4.6 mEq/L (3.5-5.1); Sodium 141 mEq/L (136-145); eGFR For African Americans > 60 (> 60); eGFR For Non-African Americans > 60 (> 60)
[2019-11-23 06:27] LABS: Platelet Estimate Decreased (Normal)
[2019-11-23] MEDS ORDERED: Acetaminophen 650 MG RECTAL SUPP RC PRN (07:35)
[2019-11-23] MEDS: Piperacillin/Tazobactam 3.375 GM in 0.9 % Sodium Chloride Mini Bag 100 ML IVPB SCH ×2 (08:16→15:41)
[2019-11-23] MEDS: Oseltamivir 6 MG/ML UDC PO SCH (08:17)
[2019-11-23] MEDS: Aspirin Enteric Coated 81 MG Tablet PO SCH (08:17)
[2019-11-23] MEDS: Chlorhexidine Rinse 15 ML MOUTHWASH MM SCH ×2 (08:17→21:21)
[2019-11-23] MEDS: Pantoprazole 40 MG VIAL IVP SCH (08:17)
[2019-11-23] MEDS: Lactulose Oral Soln 20 GM/30 ML UDC PO SCH ×3 (08:17→21:21)
[2019-11-23] MEDS ORDERED: *HR* Rocuronium Bromide 100 MG/10 ML VIAL IVC ONE (09:57)
[2019-11-23] MEDS ORDERED: *HR* Etomidate 20 MG/10 ML AMPUL IVP ONE (09:57)
[2019-11-23] MEDS: *HR* Dextrose 50 % in Water (Syg) 50 ML SYRINGE IVP PRN (12:25)
[2019-11-23] MEDS: *HR* Metoprolol 5 MG/5 ML VIAL IVP SCH ×2 (12:25→18:43)
[2019-11-23] MEDS: MethylPREDNISolone 40 MG/ML VIAL IVP SCH (15:41)
[2019-11-23] MEDS: Doxycycline 100 MG in 0.9 % Sodium Chloride Mini Bag 100 ML IVPB SCH (21:21)
[2019-11-24] MEDS: Piperacillin/Tazobactam 3.375 GM in 0.9 % Sodium Chloride Mini Bag 100 ML IVPB SCH ×4 (00:14→23:32)
[2019-11-24] MEDS: Artificial Tears SOLN 15 ML BOTTLE BOTH EYES SCH ×7 (00:16→23:29)
[2019-11-24] MEDS: MethylPREDNISolone 40 MG/ML VIAL IVP SCH ×4 (00:19→23:33)
[2019-11-24] MEDS: *HR* Metoprolol 5 MG/5 ML VIAL IVP SCH ×5 (00:19→23:33)
[2019-11-24] MEDS: Insulin LISPRO 300 UNITS/3 ML VIAL SQ SCH ×5 (00:21→23:34)
[2019-11-24] MEDS: FentaNYL (PF) 1,000 MCG in 0.9 % Sodium Chloride 80 ML IVC SCH ×2 (00:22→07:24)
[2019-11-24] MEDS: Ipratropium/Albuterol Neb 3 ML IH SCH ×6 (03:36→23:30)
[2019-11-24 03:59] LABS: Basophils % 0.2 %; Hematocrit 29.2 % (37.5-50.1); Hemoglobin 8.4 g/dL (12.9-16.9); Immature Granulocytes % 0.6 % (0-4); Lymphocytes # 0.6 K/mcL (0.6-4.6); Lymphocytes % 10.1 %; Mean Corpuscular HGB Conc 28.8 g/dL (31.6-35.5); Mean Platelet Volume 10.3 fL (9.4-12.4); Monocytes # 0.2 K/mcL (0.0-1.3); Monocytes % 2.4 %; Neutrophils # 5.4 K/mcL (1.6-8.9); Red Cell Distribution Width 18.8 % (11.5-14.5); Segmented Neutrophils % 86.7 %; White Blood Count 6.2 K/mcL (4.3-11.1)
[2019-11-24 04:02] LABS: Platelet Count 84 K/mcL (140-400)
[2019-11-24 04:14] LABS: BUN/Creatinine Ratio 21 (6-26); Blood Urea Nitrogen 17 mg/dL (6-20); Carbon Dioxide 20 mEq/L (23-29); Chloride 113 mEq/L (98-107); Glucose 193 mg/dL (70-105); Magnesium 2.2 mg/dL (1.6-2.6); Osmolality,Calculated 301 (280-300); Potassium 4.3 mEq/L (3.5-5.1); Sodium 142 mEq/L (136-145); eGFR For African Americans > 60 (> 60); eGFR For Non-African Americans > 60 (> 60)
[2019-11-24 04:23] LABS: Ovalocytes 2+ (Not Present); Platelet Estimate Decreased (Normal); Tear Drop Cells 2+ (Not Present)
[2019-11-24 05:01] LABS: ABG Base Excess -2 mEq/L (-2 to 3); ABG HCO3 24 mEq/L (21-27); ABG Oxygen Saturation 93 % (95-98); ABG PCO2 49 mmHg (35-45); ABG PH 7.31 pH Units (7.32-7.45); ABG PO2 72 mmHg (85-104); ABG TCO2 26 mEq/L (20-26); Blood Gas VT 500 cc
[2019-11-24] MEDS: *HR* Enoxaparin 40 MG/0.4 ML SYRINGE SQ SCH (06:03)
[2019-11-24] MEDS: Aspirin Enteric Coated 81 MG Tablet PO SCH (07:39)
[2019-11-24] MEDS ORDERED: Aminoglycoside Consult 1 EACH MC ONE (08:21)
[2019-11-24] MEDS: Lactulose Oral Soln 20 GM/30 ML UDC PO SCH ×3 (08:33→19:48)
[2019-11-24] MEDS: Pantoprazole 40 MG VIAL IVP SCH (08:33)
[2019-11-24] MEDS: Chlorhexidine Rinse 15 ML MOUTHWASH MM SCH ×2 (08:33→19:48)
[2019-11-24] MEDS: Doxycycline 100 MG in 0.9 % Sodium Chloride Mini Bag 100 ML IVPB SCH ×2 (08:33→19:36)
[2019-11-24] MEDS: Dexmedetomidine HCl 400 MCG/100 ML MLS IVC SCH ×3 (11:02→19:50)
[2019-11-24] MEDS ORDERED: Haloperidol Lactate 5 MG/ML VIAL IVP ONE (13:07)
[2019-11-24] MEDS ORDERED: Baclofen 10 MG TABLET PO PRN (13:52)
[2019-11-24] MEDS: chlorproMAZINE 25 MG TABLET PO SCH ×2 (15:20→19:44)
[2019-11-24] MEDS: Gabapentin 400 MG CAPSULE PO SCH ×2 (15:20→19:41)
[2019-11-24] MEDS: QUEtiapine Fumarate 25 MG TABLET PO SCH (16:14)
[2019-11-24] MEDS: Topiramate 100 MG TABLET PO SCH (19:43)
[2019-11-24] MEDS ORDERED: QUEtiapine Fumarate 100 MG TABLET PO SCH (21:00)
[2019-11-24] MEDS ORDERED: hydrOXYzine pamoate 25 MG CAPSULE PO SCH (21:00)
[2019-11-25] MEDS: Ipratropium/Albuterol Neb 3 ML IH SCH ×5 (03:55→20:00)
[2019-11-25] MEDS: Dexmedetomidine HCl 400 MCG/100 ML MLS IVC SCH (04:06)
[2019-11-25] MEDS: Artificial Tears SOLN 15 ML BOTTLE BOTH EYES SCH ×2 (04:08→09:23)
[2019-11-25 04:16] LABS: Basophils % 0.1 %; Hemoglobin 8.6 g/dL (12.9-16.9); Platelet Count 112 K/mcL (140-400)
[2019-11-25 04:18] LABS: Eosinophils % 0.1 %; Hematocrit 29.7 % (37.5-50.1); Immature Granulocytes % 0.7 % (0-4); Lymphocytes # 0.8 K/mcL (0.6-4.6); Lymphocytes % 10.8 %; Mean Corpuscular Hemoglobin 20.9 pg (28.0-33.3); Mean Corpuscular Volume 72.1 fL (83.0-100.0); Mean Platelet Volume 10.3 fL (9.4-12.4); Monocytes # 0.2 K/mcL (0.0-1.3); Monocytes % 2.5 %; Neutrophils # 6.1 K/mcL (1.6-8.9); Nucleated Red Blood Cells 0.3 /100 WBC (0); Red Blood Count 4.12 M/mcL (4.19-5.50); Red Cell Distribution Width 18.6 % (11.5-14.5); Segmented Neutrophils % 85.8 %; White Blood Count 7.1 K/mcL (4.3-11.1)
[2019-11-25 04:30] LABS: BUN/Creatinine Ratio 28 (6-26); Blood Urea Nitrogen 17 mg/dL (6-20); Calcium 8.3 mg/dL (8.6-10.3); Carbon Dioxide 22 mEq/L (23-29); Chloride 115 mEq/L (98-107); Glucose 144 mg/dL (70-105); Osmolality,Calculated 294 (280-300); Potassium 4.8 mEq/L (3.5-5.1); Sodium 140 mEq/L (136-145); eGFR For African Americans > 60 (> 60); eGFR For Non-African Americans > 60 (> 60)
[2019-11-25 04:39] LABS: Platelet Estimate Slight Decrease (Normal)
[2019-11-25] MEDS: *HR* Enoxaparin 40 MG/0.4 ML SYRINGE SQ SCH (05:49)
[2019-11-25] MEDS: *HR* Metoprolol 5 MG/5 ML VIAL IVP SCH ×2 (05:50→17:08)
[2019-11-25] MEDS: Insulin LISPRO 300 UNITS/3 ML VIAL SQ SCH ×2 (05:55→19:06)
[2019-11-25] MEDS: *HR* Dextrose 50 % in Water (Syg) 50 ML SYRINGE IVP PRN (06:15)
[2019-11-25] MEDS ORDERED: cefTRIAXone 2,000 MG in 0.9 % Sodium Chloride Mini Bag 100 ML IVPB ONE (08:06)
[2019-11-25] MEDS ORDERED: QUEtiapine Fumarate 25 MG TABLET PO SCH (09:00)
[2019-11-25] MEDS ORDERED: Folic Acid 1 MG TABLET PO SCH (09:00)
[2019-11-25] MEDS: MethylPREDNISolone 40 MG/ML VIAL IVP SCH ×2 (09:21→17:08)
[2019-11-25] MEDS: Aspirin Enteric Coated 81 MG Tablet PO SCH (09:22)
[2019-11-25] MEDS: Topiramate 100 MG TABLET PO SCH ×2 (09:22→20:10)
[2019-11-25] MEDS: chlorproMAZINE 25 MG TABLET PO SCH ×3 (09:22→20:12)
[2019-11-25] MEDS: Pantoprazole 40 MG VIAL IVP SCH (09:22)
[2019-11-25] MEDS: Gabapentin 400 MG CAPSULE PO SCH ×3 (09:22→20:10)
[2019-11-25] MEDS: QUEtiapine Fumarate 25 MG TABLET PO SCH (09:22)
[2019-11-25] MEDS: Lactulose Oral Soln 20 GM/30 ML UDC PO SCH ×3 (09:23→20:10)
[2019-11-25] MEDS ORDERED: *HR* LORazepam 2 MG/ML VIAL IVP PRN ×2 (12:51→14:35)
[2019-11-25] MEDS ORDERED: *HR* Dextrose 50 % in Water (Syg) 50 ML SYRINGE IVP PRN ×2 (12:51→14:35)
[2019-11-25] MEDS ORDERED: Acetaminophen 650 MG RECTAL SUPP RC PRN (12:51)
[2019-11-25] MEDS ORDERED: Baclofen 10 MG TABLET PO PRN ×2 (12:51→14:35)
[2019-11-25] MEDS ORDERED: Naloxone 0.4 MG/ML INJ IVP PRN (12:51)
[2019-11-25] MEDS ORDERED: Dextrose Gel 15 GM/37.5 ML TUBE PO PRN ×4 (12:51→14:35)
[2019-11-25] MEDS ORDERED: D5% in Water 1,000 ML IVC PRN ×2 (12:51→14:35)
[2019-11-25] MEDS ORDERED: Artificial Tears SOLN 15 ML BOTTLE BOTH EYES PRN (12:51)
[2019-11-25] MEDS ORDERED: Gabapentin 400 MG CAPSULE PO SCH (15:00)
[2019-11-25] MEDS ORDERED: chlorproMAZINE 25 MG TABLET PO SCH (15:00)
[2019-11-25] MEDS ORDERED: Lactulose Oral Soln 20 GM/30 ML UDC PO SCH (15:00)
[2019-11-25] MEDS ORDERED: MethylPREDNISolone 40 MG/ML VIAL IVP SCH (16:00)
[2019-11-25] MEDS ORDERED: Ipratropium/Albuterol Neb 3 ML IH SCH (16:00)
[2019-11-25] MEDS ORDERED: Artificial Tears SOLN 15 ML BOTTLE BOTH EYES SCH (16:00)
[2019-11-25] MEDS ORDERED: Insulin LISPRO 300 UNITS/3 ML VIAL SQ SCH (18:00)
[2019-11-25] MEDS ORDERED: *HR* Metoprolol 5 MG/5 ML VIAL IVP SCH (18:00)
[2019-11-25] MEDS: QUEtiapine Fumarate 100 MG TABLET PO SCH (20:10)
[2019-11-25] MEDS: hydrOXYzine pamoate 25 MG CAPSULE PO SCH (20:10)
[2019-11-25] MEDS ORDERED: Chlorhexidine Rinse 15 ML MOUTHWASH MM SCH (21:00)
[2019-11-25] MEDS ORDERED: QUEtiapine Fumarate 100 MG TABLET PO SCH (21:00)
[2019-11-25] MEDS ORDERED: hydrOXYzine pamoate 25 MG CAPSULE PO SCH (21:00)
[2019-11-25] MEDS ORDERED: Topiramate 100 MG TABLET PO SCH (21:00)
[2019-11-26] MEDS: Ipratropium/Albuterol Neb 3 ML IH SCH ×6 (00:06→20:26)
[2019-11-26] MEDS: Insulin LISPRO 300 UNITS/3 ML VIAL SQ SCH ×4 (00:31→18:29)
[2019-11-26] MEDS: MethylPREDNISolone 40 MG/ML VIAL IVP SCH ×3 (02:22→16:27)
[2019-11-26] MEDS: *HR* Metoprolol 5 MG/5 ML VIAL IVP SCH ×3 (02:23→12:11)
[2019-11-26] MEDS: *HR* Enoxaparin 40 MG/0.4 ML SYRINGE SQ SCH (05:59)
[2019-11-26] MEDS ORDERED: *HR* Enoxaparin 40 MG/0.4 ML SYRINGE SQ SCH (07:00)
[2019-11-26] MEDS ORDERED: cefTRIAXone 2,000 MG in Water for inj. (sterile) 20 ML IVP SCH (09:00)
[2019-11-26] MEDS ORDERED: Pantoprazole 40 MG VIAL IVP SCH ×2 (09:00)
[2019-11-26] MEDS ORDERED: Aspirin Enteric Coated 81 MG Tablet PO SCH (09:00)
[2019-11-26] MEDS ORDERED: Folic Acid 1 MG TABLET PO SCH (09:00)
[2019-11-26] MEDS ORDERED: QUEtiapine Fumarate 25 MG TABLET PO SCH (09:00)
[2019-11-26] MEDS: Aspirin Enteric Coated 81 MG Tablet PO SCH (10:33)
[2019-11-26] MEDS: chlorproMAZINE 25 MG TABLET PO SCH ×3 (10:33→21:36)
[2019-11-26] MEDS: Gabapentin 400 MG CAPSULE PO SCH ×3 (10:33→21:34)
[2019-11-26] MEDS: QUEtiapine Fumarate 25 MG TABLET PO SCH (10:33)
[2019-11-26] MEDS: Topiramate 100 MG TABLET PO SCH ×2 (10:34→21:33)
[2019-11-26] MEDS: Folic Acid 1 MG TABLET PO SCH (10:34)
[2019-11-26] MEDS: Lactulose Oral Soln 20 GM/30 ML UDC PO SCH ×3 (10:35→21:34)
[2019-11-26] MEDS: cefTRIAXone 2,000 MG in Water for inj. (sterile) 20 ML IVP SCH (10:35)
[2019-11-26] MEDS ORDERED: *HR* LORazepam 0.5 MG TABLET PO PRN (16:28)
[2019-11-26] MEDS: hydrOXYzine pamoate 25 MG CAPSULE PO SCH (21:33)
[2019-11-26] MEDS: QUEtiapine Fumarate 100 MG TABLET PO SCH (21:33)
[2019-11-27] MEDS: MethylPREDNISolone 40 MG/ML VIAL IVP SCH ×2 (00:31→08:26)
[2019-11-27] MEDS: Insulin LISPRO 300 UNITS/3 ML VIAL SQ SCH ×2 (00:31→06:49)
[2019-11-27] MEDS: Ipratropium/Albuterol Neb 3 ML IH SCH ×4 (00:41→11:35)
[2019-11-27 05:55] LABS: Hemoglobin 8.7 g/dL (12.9-16.9); White Blood Count 5.8 K/mcL (4.3-11.1)
[2019-11-27 05:56] LABS: Hematocrit 29.5 % (37.5-50.1); Mean Corpuscular HGB Conc 29.5 g/dL (31.6-35.5); Mean Corpuscular Hemoglobin 20.7 pg (28.0-33.3); Mean Corpuscular Volume 70.1 fL (83.0-100.0); Platelet Count 145 K/mcL (140-400); Red Blood Count 4.21 M/mcL (4.19-5.50); Red Cell Distribution Width 18.2 % (11.5-14.5)
[2019-11-27 06:18] LABS: BUN/Creatinine Ratio 18 (6-26); Blood Urea Nitrogen 10 mg/dL (6-20); Calcium 8.7 mg/dL (8.6-10.3); Carbon Dioxide 22 mEq/L (23-29); Chloride 110 mEq/L (98-107); Glucose 174 mg/dL (70-105); Osmolality,Calculated 289 (280-300); Potassium 3.9 mEq/L (3.5-5.1); Sodium 138 mEq/L (136-145); eGFR For African Americans > 60 (> 60); eGFR For Non-African Americans > 60 (> 60)
[2019-11-27] MEDS: *HR* Enoxaparin 40 MG/0.4 ML SYRINGE SQ SCH (06:45)
[2019-11-27 07:03] VITALS: BP 117/76
[2019-11-27] MEDS: cefTRIAXone 2,000 MG in Water for inj. (sterile) 20 ML IVP SCH (08:25)
[2019-11-27] MEDS: Lactulose Oral Soln 20 GM/30 ML UDC PO SCH (08:25)
[2019-11-27] MEDS: chlorproMAZINE 25 MG TABLET PO SCH (08:25)
[2019-11-27] MEDS: Aspirin Enteric Coated 81 MG Tablet PO SCH (08:25)
[2019-11-27] MEDS: Gabapentin 400 MG CAPSULE PO SCH (08:26)
[2019-11-27] MEDS: Folic Acid 1 MG TABLET PO SCH (08:26)
[2019-11-27] MEDS: Topiramate 100 MG TABLET PO SCH (08:26)
[2019-11-27] MEDS: QUEtiapine Fumarate 25 MG TABLET PO SCH (08:26)
[2019-11-27] MEDS ORDERED: *HR* OxyCODONE/APAP 7.5/325 TABLET PO PRN (09:11)
== END 2019-11-27 11:59 | DRG 871 ==
LOC: EMEROOARM 16:10 → ICNU 18:38 → SUATTDRO 18:38 → ICNU 20:00 → 2NENU 11-25 16:17
PROVIDERS: ADMIT Pediatrics; ATTEND Internal Medicine

== ENCOUNTER 2020-02-13 07:51 | Inpatient (IN) ==
[2020-02-13] MEDS ORDERED: Pantoprazole 40 MG VIAL IVP ONE (07:57)
[2020-02-13] MEDS ORDERED: Ondansetron 4 MG/2 ML VIAL IVP ONE (07:58)
[2020-02-13] MEDS ORDERED: 0.9 % Sodium Chloride 1,000 ML IVC ONE (07:58)
[2020-02-13] MEDS: Pantoprazole 40 MG in 0.9 % Sodium Chloride Mini Bag 100 ML IVC SCH ×3 (08:14→20:42)
[2020-02-13] MEDS ORDERED: *HR* FentaNYL (PF) 100 MCG/2 ML VIAL IVP ONE (08:20)
[2020-02-13 08:25] LABS: Hematocrit 24.4 % (37.5-50.1); Hemoglobin 7.2 g/dL (12.9-16.9); Mean Corpuscular HGB Conc 29.5 g/dL (31.6-35.5); Mean Corpuscular Volume 74.6 fL (83.0-100.0); Mean Platelet Volume 9.6 fL (9.4-12.4); Nucleated Red Blood Cells 0.3 /100 WBC (0); Platelet Count 225 K/mcL (140-400); Red Blood Count 3.27 M/mcL (4.19-5.50); Red Cell Distribution Width 19.8 % (11.5-14.5); White Blood Count 15.3 K/mcL (4.3-11.1)
[2020-02-13] MEDS ORDERED: Isovue-370 500 ML BOTTLE IVP ONE (08:26)
[2020-02-13 08:48] LABS: Alanine Aminotransferase 14 Units/L (7-52); Albumin 3.4 g/dL (3.5-5.7); Alkaline Phosphatase 72 Units/L (34-104); Aspartate Amino Transferase 21 Units/L (13-39); BUN/Creatinine Ratio 41 (6-26); Bilirubin,Total 0.2 mg/dL (0.3-1.0); Blood Urea Nitrogen 33 mg/dL (6-20); Calcium 8.7 mg/dL (8.6-10.3); Carbon Dioxide 22 mEq/L (23-29); Chloride 107 mEq/L (98-107); Globulin 3.4 g/dL (2.4-3.5); Glucose 224 mg/dL (70-105); Lipase 50 Units/L (11-82); Magnesium 1.6 mg/dL (1.6-2.6); Osmolality,Calculated 300 (280-300); Potassium 3.9 mEq/L (3.5-5.1); Sodium 138 mEq/L (136-145); Total Protein 6.8 g/dL (6.4-8.9); eGFR For African Americans > 60 (> 60); eGFR For Non-African Americans > 60 (> 60)
[2020-02-13 09:02] LABS: Anisocytosis 1+ (Not Present); Eosinophils # 0.5 K/mcL (0.0-0.6); Lymphocytes # 4.1 K/mcL (0.6-4.6); Microcytosis Present (Not Present); Monocytes # 0.9 K/mcL (0.0-1.3); Neutrophils # 9.8 K/mcL (1.6-8.9); Platelet Estimate Normal (Normal)
[2020-02-13 09:03] LABS: Hypochromasia Present (Not Present); Ovalocytes 1+ (Not Present); Polychromasia 1+ (Not Present)
[2020-02-13] MEDS ORDERED: 0.9 % Sodium Chloride 250 ML ONE ×2 (09:03→10:01)
[2020-02-13 09:04] LABS: INR 1.3; Prothrombin Time 15.3 Seconds (9.4-12.1)
[2020-02-13 09:07] LABS: Activated Partial Thrombo Time 37.1 Seconds (26.0-36.0)
[2020-02-13] MEDS ORDERED: Tuberculin Skin Test (PPD) 5 UNIT/0.1 ML VIAL ID ONE (10:53)
[2020-02-13] MEDS ORDERED: Acetaminophen 325 MG TABLET PO PRN (15:37)
[2020-02-13] MEDS ORDERED: D5% in Water 1,000 ML IVC PRN (15:37)
[2020-02-13] MEDS ORDERED: Dextrose Gel 15 GM/37.5 ML TUBE PO PRN ×2 (15:37)
[2020-02-13] MEDS ORDERED: Naloxone 0.4 MG/ML INJ IVP PRN (15:37)
[2020-02-13] MEDS ORDERED: *HR* Dextrose 50 % in Water (Syg) 50 ML SYRINGE IVP PRN (15:37)
[2020-02-13] MEDS ORDERED: Ipratropium 1 PUFF INHALER IH PRN (15:46)
[2020-02-13] MEDS ORDERED: *HR* LORazepam 0.5 MG TABLET PO PRN (15:50)
[2020-02-13] MEDS ORDERED: Baclofen 10 MG TABLET PO PRN (15:50)
[2020-02-13] MEDS ORDERED: *HR* LORazepam 2 MG/ML VIAL IVP PRN (15:53)
[2020-02-13 16:29] LABS: Hematocrit 27.4 % (37.5-50.1); Hemoglobin 8.5 g/dL (12.9-16.9)
[2020-02-13 16:37] LABS: Estimated Average Glucose 123 mg/dl
[2020-02-13 16:48] LABS: C-Reactive Protein 10 mg/L (Less than 10); Lactate Dehydrogenase 129 Units/L (140-271)
[2020-02-13 17:06] LABS: Ferritin 15 ng/mL (20-250)
[2020-02-13] MEDS: Vancomycin 1,250 MG/262.5 ML IV.SOLN IVPB SCH (17:44)
[2020-02-13] MEDS: levoFLOXacin 750 MG/150 ML 750 MG/150 ML BAG IVPB SCH (17:52)
[2020-02-13] MEDS: Insulin LISPRO 300 UNITS/3 ML VIAL SQ SCH ×2 (17:55→20:29)
[2020-02-13] MEDS: hydrOXYzine pamoate 25 MG CAPSULE PO SCH ×2 (20:30→20:42)
[2020-02-13] MEDS: chlorproMAZINE 25 MG TABLET PO SCH ×2 (20:30→20:42)
[2020-02-13] MEDS: Topiramate 100 MG TABLET PO SCH ×2 (20:30→20:42)
[2020-02-13] MEDS: Gabapentin 400 MG CAPSULE PO SCH ×2 (20:30→20:42)
[2020-02-13] MEDS: QUEtiapine Fumarate 100 MG TABLET PO SCH ×2 (20:30→20:42)
[2020-02-13] MEDS: *HR* OxyCODONE/APAP 7.5/325 TABLET PO PRN (20:42)
[2020-02-13 22:40] LABS: Hematocrit 23.7 % (37.5-50.1); Hemoglobin 7.4 g/dL (12.9-16.9)
[2020-02-14 04:07] LABS: Basophils % 0.6 %; Hemoglobin 7.4 g/dL (12.9-16.9)
[2020-02-14 04:08] LABS: INR 1.5; Prothrombin Time 17.5 Seconds (9.4-12.1)
[2020-02-14 04:10] LABS: Hematocrit 24.1 % (37.5-50.1); Immature Platelets 1.3 % (1.1-6.1); Nucleated Red Blood Cells 0.3 /100 WBC (0)
[2020-02-14 04:18] LABS: Eosinophils # 0.3 K/mcL (0.0-0.6); Hematocrit 24.2 % (37.5-50.1); Hemoglobin 7.5 g/dL (12.9-16.9); Lymphocytes # 2.3 K/mcL (0.6-4.6); Lymphocytes % 32.6 %; Mean Corpuscular Hemoglobin 24.9 pg (28.0-33.3); Mean Corpuscular Volume 80.4 fL (83.0-100.0); Mean Platelet Volume 11.1 fL (9.4-12.4); Monocytes # 0.4 K/mcL (0.0-1.3); Monocytes % 5.5 %; Neutrophils # 3.9 K/mcL (1.6-8.9); Red Blood Count 3.01 M/mcL (4.19-5.50); Red Cell Distribution Width 20.1 % (11.5-14.5); Segmented Neutrophils % 56.3 %
[2020-02-14 04:20] LABS: Platelet Count 84 K/mcL (140-400)
[2020-02-14 04:26] LABS: Alanine Aminotransferase 11 Units/L (7-52); Albumin 2.9 g/dL (3.5-5.7); Alkaline Phosphatase 49 Units/L (34-104); Aspartate Amino Transferase 18 Units/L (13-39); BUN/Creatinine Ratio 42 (6-26); Bilirubin,Direct 0.1 mg/dL (0.0-0.2); Bilirubin,Indirect 0.1 mg/dL (0.0-1.0); Bilirubin,Total 0.2 mg/dL (0.3-1.0); Blood Urea Nitrogen 26 mg/dL (6-20); C-Reactive Protein 7 mg/L (Less than 10); Calcium 7.9 mg/dL (8.6-10.3); Carbon Dioxide 22 mEq/L (23-29); Chloride 112 mEq/L (98-107); Glucose 99 mg/dL (70-105); Lactate Dehydrogenase 106 Units/L (140-271); Magnesium 1.5 mg/dL (1.6-2.6); Osmolality,Calculated 291 (280-300); Phosphorous 1.9 mg/dL (2.7-4.5); Potassium 3.5 mEq/L (3.5-5.1); Sodium 138 mEq/L (136-145); Total Protein 5.9 g/dL (6.4-8.9); eGFR For African Americans > 60 (> 60); eGFR For Non-African Americans > 60 (> 60)
[2020-02-14 04:43] LABS: Ferritin 18 ng/mL (20-250)
[2020-02-14] MEDS: Pantoprazole 40 MG in 0.9 % Sodium Chloride Mini Bag 100 ML IVC SCH ×5 (05:34→21:47)
[2020-02-14] MEDS: Vancomycin 1,250 MG/262.5 ML IV.SOLN IVPB SCH ×2 (05:35→17:23)
[2020-02-14] MEDS ORDERED: 0.9 % Sodium Chloride 250 ML ONE (07:46)
[2020-02-14] MEDS: Insulin LISPRO 300 UNITS/3 ML VIAL SQ SCH ×3 (09:34→17:22)
[2020-02-14] MEDS: Gabapentin 400 MG CAPSULE PO SCH ×3 (09:34→20:54)
[2020-02-14] MEDS: chlorproMAZINE 25 MG TABLET PO SCH ×3 (09:34→20:55)
[2020-02-14] MEDS: Folic Acid 1 MG TABLET PO SCH (09:34)
[2020-02-14] MEDS: Topiramate 100 MG TABLET PO SCH ×2 (09:34→20:55)
[2020-02-14] MEDS: Multivit/Ca/Min/Fe/FA 1 TAB TABLET PO SCH (09:34)
[2020-02-14] MEDS: Insulin DETEMIR 100 UNIT/ML X5UNITS SQ SCH ×2 (10:25→20:55)
[2020-02-14 13:19] LABS: Hematocrit 26.1 % (37.5-50.1); Hemoglobin 8.1 g/dL (12.9-16.9)
[2020-02-14] MEDS: *HR* OxyCODONE/APAP 7.5/325 TABLET PO PRN ×2 (15:27→21:47)
[2020-02-14 16:02] LABS: Hemoglobin 8.1 g/dL (12.9-16.9)
[2020-02-14] MEDS: levoFLOXacin 750 MG/150 ML 750 MG/150 ML BAG IVPB SCH (17:23)
[2020-02-14] MEDS: QUEtiapine Fumarate 100 MG TABLET PO SCH (20:55)
[2020-02-14] MEDS: hydrOXYzine pamoate 25 MG CAPSULE PO SCH (20:55)
[2020-02-14] MEDS ORDERED: Insulin LISPRO 300 UNITS/3 ML VIAL SQ SCH (21:00)
[2020-02-14 21:36] LABS: Hematocrit 24.9 % (37.5-50.1)
[2020-02-15] MEDS: Pantoprazole 40 MG in 0.9 % Sodium Chloride Mini Bag 100 ML IVC SCH ×4 (03:00→21:52)
[2020-02-15] MEDS: *HR* OxyCODONE/APAP 7.5/325 TABLET PO PRN (05:03)
[2020-02-15 06:12] LABS: Basophils % 0.6 %; Eosinophils # 0.3 K/mcL (0.0-0.6); Eosinophils % 5.3 %; Hematocrit 25.8 % (37.5-50.1); Hemoglobin 7.9 g/dL (12.9-16.9); Immature Granulocytes % 0.8 % (0-4); Immature Platelets 1.4 % (1.1-6.1); Lymphocytes # 1.7 K/mcL (0.6-4.6); Lymphocytes % 33.5 %; Mean Corpuscular HGB Conc 30.6 g/dL (31.6-35.5); Mean Corpuscular Hemoglobin 25.4 pg (28.0-33.3); Mean Platelet Volume 9.7 fL (9.4-12.4); Monocytes # 0.3 K/mcL (0.0-1.3); Monocytes % 6.5 %; Neutrophils # 2.7 K/mcL (1.6-8.9); Platelet Count 103 K/mcL (140-400); Red Blood Count 3.11 M/mcL (4.19-5.50); Red Cell Distribution Width 19.9 % (11.5-14.5); Segmented Neutrophils % 53.3 %; White Blood Count 5.1 K/mcL (4.3-11.1)
[2020-02-15 06:14] LABS: Alanine Aminotransferase 14 Units/L (7-52); Albumin/Globulin Ratio 1.1 (1.1-2.2); Alkaline Phosphatase 54 Units/L (34-104); Aspartate Amino Transferase 26 Units/L (13-39); BUN/Creatinine Ratio 23 (6-26); Bilirubin,Total 0.3 mg/dL (0.3-1.0); Blood Urea Nitrogen 15 mg/dL (6-20); Carbon Dioxide 20 mEq/L (23-29); Chloride 116 mEq/L (98-107); Globulin 2.8 g/dL (2.4-3.5); Glucose 82 mg/dL (70-105); Osmolality,Calculated 292 (280-300); Potassium 3.5 mEq/L (3.5-5.1); Sodium 141 mEq/L (136-145); Total Protein 5.8 g/dL (6.4-8.9); eGFR For African Americans > 60 (> 60); eGFR For Non-African Americans > 60 (> 60)
[2020-02-15] MEDS: Vancomycin 1,250 MG/262.5 ML IV.SOLN IVPB SCH ×3 (06:36→17:52)
[2020-02-15] MEDS: Insulin DETEMIR 100 UNIT/ML X5UNITS SQ SCH ×2 (08:55→20:10)
[2020-02-15] MEDS: Gabapentin 400 MG CAPSULE PO SCH (08:57)
[2020-02-15] MEDS: Insulin LISPRO 300 UNITS/3 ML VIAL SQ SCH ×4 (08:58→20:09)
[2020-02-15] MEDS: Folic Acid 1 MG TABLET PO SCH (09:31)
[2020-02-15] MEDS: Multivit/Ca/Min/Fe/FA 1 TAB TABLET PO SCH (09:31)
[2020-02-15] MEDS: chlorproMAZINE 25 MG TABLET PO SCH ×3 (09:31→22:17)
[2020-02-15] MEDS: Topiramate 100 MG TABLET PO SCH ×2 (09:31→22:18)
[2020-02-15] MEDS: Calcium Gluconate 1gm/50mL 1 GM/50 ML BAG IVPB SCH ×2 (09:32→14:08)
[2020-02-15] MEDS ORDERED: *HR* OxyCODONE/APAP 5/325 TABLET PO PRN (10:17)
[2020-02-15] MEDS ORDERED: Potassium Chloride 40 MEQ, Lidocaine 1% 2 ML in 0.9 % Sodium Chloride 500 ML IVPB ONE ×2 (10:17→11:00)
[2020-02-15] MEDS ORDERED: Baclofen 10 MG TABLET PO PRN ×2 (10:18→11:00)
[2020-02-15] MEDS ORDERED: D5% in Water 1,000 ML IVC PRN (11:00)
[2020-02-15] MEDS ORDERED: *HR* LORazepam 2 MG/ML VIAL IVP PRN (11:00)
[2020-02-15] MEDS ORDERED: Naloxone 0.4 MG/ML INJ IVP PRN (11:00)
[2020-02-15] MEDS ORDERED: Dextrose Gel 15 GM/37.5 ML TUBE PO PRN ×2 (11:00)
[2020-02-15] MEDS ORDERED: *HR* Dextrose 50 % in Water (Syg) 50 ML SYRINGE IVP PRN (11:00)
[2020-02-15] MEDS ORDERED: Ipratropium 1 PUFF INHALER IH PRN (11:00)
[2020-02-15] MEDS ORDERED: 0.9 % Sodium Chloride 250 ML ONE ×2 (11:12→18:43)
[2020-02-15] MEDS ORDERED: Calcium Gluconate 1gm/50mL 1 GM/50 ML BAG IVPB SCH (11:30)
[2020-02-15] MEDS: *HR* OxyCODONE/APAP 5/325 TABLET PO PRN ×2 (13:33→23:54)
[2020-02-15] MEDS ORDERED: Furosemide 20 MG/2 ML VIAL IVP ONE ×3 (13:41→21:00)
[2020-02-15] MEDS: Gabapentin 300 MG CAPSULE PO SCH ×2 (14:29→22:17)
[2020-02-15] MEDS ORDERED: Gabapentin 300 MG CAPSULE PO SCH (15:00)
[2020-02-15] MEDS ORDERED: *HR* Metoprolol 5 MG/5 ML VIAL IVP PRN (15:40)
[2020-02-15] MEDS: levoFLOXacin 750 MG/150 ML 750 MG/150 ML BAG IVPB SCH (17:42)
[2020-02-15] MEDS ORDERED: Ondansetron 4 MG/2 ML VIAL ONE (18:57)
[2020-02-15] MEDS ORDERED: Lidocaine -MPF 2% 2 ML VIAL ONE (18:57)
[2020-02-15] MEDS ORDERED: *HR* Rocuronium Bromide 50 MG/5 ML VIAL ONE (18:57)
[2020-02-15] MEDS ORDERED: *HR* Propofol 200 MG/20 ML VIAL IVP ONE ×2 (18:57→19:10)
[2020-02-15] MEDS ORDERED: *HR* Vasopressin 20 UNIT/ML VIAL ONE (19:38)
[2020-02-15 21:52] LABS: VBG Ionized Calcium 1.14 mmol/L (1.15-1.35)
[2020-02-15 22:11] LABS: Alanine Aminotransferase 27 Units/L (7-52); Albumin 2.9 g/dL (3.5-5.7); Alkaline Phosphatase 77 Units/L (34-104); Aspartate Amino Transferase 47 Units/L (13-39); BUN/Creatinine Ratio 16 (6-26); Bilirubin,Total 0.4 mg/dL (0.3-1.0); Blood Urea Nitrogen 13 mg/dL (6-20); Calcium 7.8 mg/dL (8.6-10.3); Carbon Dioxide 19 mEq/L (23-29); Chloride 112 mEq/L (98-107); Glucose 142 mg/dL (70-105); Magnesium 1.9 mg/dL (1.6-2.6); Osmolality,Calculated 289 (280-300); Potassium 3.6 mEq/L (3.5-5.1); Sodium 138 mEq/L (136-145); Total Protein 5.9 g/dL (6.4-8.9); eGFR For African Americans > 60 (> 60); eGFR For Non-African Americans > 60 (> 60)
[2020-02-15] MEDS: hydrOXYzine pamoate 25 MG CAPSULE PO SCH (22:17)
[2020-02-15] MEDS: QUEtiapine Fumarate 100 MG TABLET PO SCH (22:18)
[2020-02-15 22:49] LABS: Hematocrit 27.5 % (37.5-50.1); Hemoglobin 8.5 g/dL (12.9-16.9)
[2020-02-16] MEDS: Pantoprazole 40 MG in 0.9 % Sodium Chloride Mini Bag 100 ML IVC SCH ×2 (02:52→06:54)
[2020-02-16] MEDS: Vancomycin 1,250 MG/262.5 ML IV.SOLN IVPB SCH ×2 (05:18→18:09)
[2020-02-16 05:54] LABS: VBG Ionized Calcium 1.23 mmol/L (1.15-1.35)
[2020-02-16 06:01] LABS: Hemoglobin 8.1 g/dL (12.9-16.9); Immature Granulocytes % 0.4 % (0-4); Red Cell Distribution Width 19.9 % (11.5-14.5); Segmented Neutrophils % 76.9 %
[2020-02-16 06:02] LABS: Basophils % 0.2 %; Eosinophils # 0.1 K/mcL (0.0-0.6); Hematocrit 26.1 % (37.5-50.1); Immature Platelets 1.6 % (1.1-6.1); Lymphocytes % 17.9 %; Mean Corpuscular Hemoglobin 25.9 pg (28.0-33.3); Mean Corpuscular Volume 83.4 fL (83.0-100.0); Mean Platelet Volume 11.6 fL (9.4-12.4); Monocytes # 0.4 K/mcL (0.0-1.3); Monocytes % 3.6 %; Neutrophils # 8.5 K/mcL (1.6-8.9); Red Blood Count 3.13 M/mcL (4.19-5.50); White Blood Count 11.1 K/mcL (4.3-11.1)
[2020-02-16 06:07] LABS: Alanine Aminotransferase 25 Units/L (7-52); Albumin/Globulin Ratio 1.1 (1.1-2.2); Alkaline Phosphatase 78 Units/L (34-104); Aspartate Amino Transferase 38 Units/L (13-39); BUN/Creatinine Ratio 18 (6-26); Bilirubin,Total 0.5 mg/dL (0.3-1.0); Blood Urea Nitrogen 13 mg/dL (6-20); Calcium 7.9 mg/dL (8.6-10.3); Carbon Dioxide 22 mEq/L (23-29); Chloride 113 mEq/L (98-107); Globulin 2.7 g/dL (2.4-3.5); Glucose 95 mg/dL (70-105); Osmolality,Calculated 288 (280-300); Phosphorous 2.8 mg/dL (2.7-4.5); Potassium 3.7 mEq/L (3.5-5.1); Sodium 139 mEq/L (136-145); Total Protein 5.7 g/dL (6.4-8.9); eGFR For African Americans > 60 (> 60); eGFR For Non-African Americans > 60 (> 60)
[2020-02-16 06:16] LABS: Platelet Count 86 K/mcL (140-400)
[2020-02-16] MEDS: Insulin LISPRO 300 UNITS/3 ML VIAL SQ SCH ×4 (08:15→20:14)
[2020-02-16] MEDS: Gabapentin 300 MG CAPSULE PO SCH ×3 (09:27→19:59)
[2020-02-16] MEDS: Folic Acid 1 MG TABLET PO SCH (09:27)
[2020-02-16] MEDS: *HR* OxyCODONE/APAP 5/325 TABLET PO PRN ×3 (09:27→21:03)
[2020-02-16] MEDS: Multivit/Ca/Min/Fe/FA 1 TAB TABLET PO SCH (09:27)
[2020-02-16] MEDS: Topiramate 100 MG TABLET PO SCH ×2 (09:27→19:58)
[2020-02-16] MEDS: chlorproMAZINE 25 MG TABLET PO SCH ×3 (09:27→19:59)
[2020-02-16] MEDS: Insulin DETEMIR 100 UNIT/ML X5UNITS SQ SCH ×2 (09:28→19:58)
[2020-02-16] MEDS: levoFLOXacin 750 MG/150 ML 750 MG/150 ML BAG IVPB SCH (18:08)
[2020-02-16] MEDS: Pantoprazole 40 MG VIAL IVP SCH (18:08)
[2020-02-16] MEDS: QUEtiapine Fumarate 100 MG TABLET PO SCH (19:59)
[2020-02-16] MEDS: hydrOXYzine pamoate 25 MG CAPSULE PO SCH (19:59)
[2020-02-16 21:58] LABS: Hematocrit 27.4 % (37.5-50.1); Hemoglobin 8.7 g/dL (12.9-16.9)
[2020-02-17] MEDS: *HR* LORazepam 0.5 MG TABLET PO PRN (01:50)
[2020-02-17] MEDS: *HR* OxyCODONE/APAP 5/325 TABLET PO PRN ×4 (03:23→21:10)
[2020-02-17 03:57] LABS: Basophils % 0.2 %; Eosinophils % 2.3 %; Immature Granulocytes % 0.5 % (0-4)
[2020-02-17 03:59] LABS: Eosinophils # 0.2 K/mcL (0.0-0.6); Hematocrit 27.8 % (37.5-50.1); Hemoglobin 8.6 g/dL (12.9-16.9); Immature Platelets 1.6 % (1.1-6.1); Lymphocytes # 1.5 K/mcL (0.6-4.6); Lymphocytes % 17.8 %; Mean Corpuscular HGB Conc 30.9 g/dL (31.6-35.5); Mean Corpuscular Hemoglobin 25.5 pg (28.0-33.3); Mean Corpuscular Volume 82.5 fL (83.0-100.0); Mean Platelet Volume 11.3 fL (9.4-12.4); Monocytes # 0.3 K/mcL (0.0-1.3); Monocytes % 3.3 %; Neutrophils # 6.3 K/mcL (1.6-8.9); Red Blood Count 3.37 M/mcL (4.19-5.50); Red Cell Distribution Width 19.1 % (11.5-14.5); Segmented Neutrophils % 75.9 %; White Blood Count 8.3 K/mcL (4.3-11.1)
[2020-02-17 04:04] LABS: Platelet Count 89 K/mcL (140-400)
[2020-02-17 04:13] LABS: BUN/Creatinine Ratio 14 (6-26); Blood Urea Nitrogen 10 mg/dL (6-20); Calcium 8.2 mg/dL (8.6-10.3); Carbon Dioxide 19 mEq/L (23-29); Chloride 112 mEq/L (98-107); Glucose 127 mg/dL (70-105); Osmolality,Calculated 285 (280-300); Potassium 3.4 mEq/L (3.5-5.1); Sodium 137 mEq/L (136-145); Vancomycin,Trough 20 mcg/mL (5-10); eGFR For African Americans > 60 (> 60); eGFR For Non-African Americans > 60 (> 60)
[2020-02-17] MEDS: Vancomycin 1,250 MG/262.5 ML IV.SOLN IVPB SCH ×2 (06:49→18:01)
[2020-02-17] MEDS: Pantoprazole 40 MG VIAL IVP SCH ×2 (06:49→18:02)
[2020-02-17] MEDS: Acetaminophen 325 MG TABLET PO PRN (06:58)
[2020-02-17] MEDS: Gabapentin 300 MG CAPSULE PO SCH ×3 (09:23→19:55)
[2020-02-17] MEDS: Multivit/Ca/Min/Fe/FA 1 TAB TABLET PO SCH (09:23)
[2020-02-17] MEDS: Folic Acid 1 MG TABLET PO SCH (09:23)
[2020-02-17] MEDS: Insulin DETEMIR 100 UNIT/ML X5UNITS SQ SCH ×2 (09:23→19:55)
[2020-02-17] MEDS: Topiramate 100 MG TABLET PO SCH ×2 (09:23→19:55)
[2020-02-17] MEDS: chlorproMAZINE 25 MG TABLET PO SCH ×3 (09:23→19:55)
[2020-02-17] MEDS: Insulin LISPRO 300 UNITS/3 ML VIAL SQ SCH ×4 (09:24→20:23)
[2020-02-17 13:14] LABS: Hemoglobin 8.3 g/dL (12.9-16.9)
[2020-02-17 13:16] LABS: Hematocrit 26.4 % (37.5-50.1)
[2020-02-17] MEDS: MetroNIDAZOLE 500 MG/100 ML 500 MG/100 ML BAG IVPB SCH ×2 (15:27→23:25)
[2020-02-17 16:04] LABS: Hematocrit 27.2 % (37.5-50.1); Hemoglobin 8.5 g/dL (12.9-16.9)
[2020-02-17] MEDS ORDERED: Potassium Chloride Elixir 20 MEQ/15 ML UDC PO ONE (16:58)
[2020-02-17] MEDS: levoFLOXacin 750 MG/150 ML 750 MG/150 ML BAG IVPB SCH (17:41)
[2020-02-17] MEDS: QUEtiapine Fumarate 100 MG TABLET PO SCH (19:54)
[2020-02-17] MEDS: hydrOXYzine pamoate 25 MG CAPSULE PO SCH (19:55)
[2020-02-17] MEDS ORDERED: hydrOXYzine pamoate 25 MG CAPSULE PO ONE (21:59)
[2020-02-17] MEDS ORDERED: *HR* LORazepam 2 MG/ML VIAL IVP ONE (23:16)
[2020-02-18 00:52] LABS: Hematocrit 28.4 % (37.5-50.1); Hemoglobin 8.9 g/dL (12.9-16.9)
[2020-02-18] MEDS: *HR* OxyCODONE/APAP 5/325 TABLET PO PRN ×3 (04:23→20:26)
[2020-02-18] MEDS: Vancomycin 1,250 MG/262.5 ML IV.SOLN IVPB SCH ×2 (04:27→17:08)
[2020-02-18 04:43] LABS: Basophils % 0.1 %; Eosinophils # 0.3 K/mcL (0.0-0.6); Hematocrit 27.2 % (37.5-50.1); Hemoglobin 8.6 g/dL (12.9-16.9); Immature Granulocytes % 0.4 % (0-4); Immature Platelets 1.5 % (1.1-6.1); Lymphocytes # 1.6 K/mcL (0.6-4.6); Lymphocytes % 21.7 %; Mean Corpuscular HGB Conc 31.6 g/dL (31.6-35.5); Mean Corpuscular Hemoglobin 25.8 pg (28.0-33.3); Mean Corpuscular Volume 81.7 fL (83.0-100.0); Mean Platelet Volume 10.7 fL (9.4-12.4); Monocytes # 0.4 K/mcL (0.0-1.3); Platelet Count 102 K/mcL (140-400); Red Blood Count 3.33 M/mcL (4.19-5.50); Red Cell Distribution Width 18.6 % (11.5-14.5); Segmented Neutrophils % 68.8 %; White Blood Count 7.3 K/mcL (4.3-11.1)
[2020-02-18 04:56] LABS: BUN/Creatinine Ratio 10 (6-26); Blood Urea Nitrogen 7 mg/dL (6-20); Calcium 8.7 mg/dL (8.6-10.3); Carbon Dioxide 19 mEq/L (23-29); Chloride 113 mEq/L (98-107); Glucose 107 mg/dL (70-105); Osmolality,Calculated 282 (280-300); Sodium 137 mEq/L (136-145); eGFR For African Americans > 60 (> 60); eGFR For Non-African Americans > 60 (> 60)
[2020-02-18] MEDS: Pantoprazole 40 MG VIAL IVP SCH ×2 (05:18→17:08)
[2020-02-18] MEDS: Folic Acid 1 MG TABLET PO SCH (08:12)
[2020-02-18] MEDS: Insulin DETEMIR 100 UNIT/ML X5UNITS SQ SCH ×2 (08:12→19:32)
[2020-02-18] MEDS: Topiramate 100 MG TABLET PO SCH ×2 (08:12→19:32)
[2020-02-18] MEDS: *HR* LORazepam 0.5 MG TABLET PO PRN (08:12)
[2020-02-18] MEDS: MetroNIDAZOLE 500 MG/100 ML 500 MG/100 ML BAG IVPB SCH ×3 (08:12→23:54)
[2020-02-18] MEDS: Gabapentin 300 MG CAPSULE PO SCH ×3 (08:12→19:33)
[2020-02-18] MEDS: Multivit/Ca/Min/Fe/FA 1 TAB TABLET PO SCH (08:12)
[2020-02-18] MEDS: chlorproMAZINE 25 MG TABLET PO SCH ×3 (08:12→19:33)
[2020-02-18] MEDS: Insulin LISPRO 300 UNITS/3 ML VIAL SQ SCH ×4 (08:28→20:15)
[2020-02-18] MEDS: levoFLOXacin 750 MG/150 ML 750 MG/150 ML BAG IVPB SCH (17:08)
[2020-02-18] MEDS: QUEtiapine Fumarate 100 MG TABLET PO SCH (19:33)
[2020-02-18] MEDS: hydrOXYzine pamoate 25 MG CAPSULE PO SCH (19:33)
[2020-02-19] MEDS: *HR* OxyCODONE/APAP 5/325 TABLET PO PRN ×4 (02:30→22:13)
[2020-02-19] MEDS: *HR* LORazepam 0.5 MG TABLET PO PRN ×2 (02:30→16:01)
[2020-02-19 03:23] LABS: Basophils % 0.4 %; Eosinophils # 0.5 K/mcL (0.0-0.6); Eosinophils % 9.8 %; Hematocrit 29.9 % (37.5-50.1); Hemoglobin 9.3 g/dL (12.9-16.9); Immature Granulocytes % 0.5 % (0-4); Lymphocytes # 1.6 K/mcL (0.6-4.6); Lymphocytes % 28.9 %; Mean Corpuscular HGB Conc 31.1 g/dL (31.6-35.5); Mean Corpuscular Hemoglobin 25.3 pg (28.0-33.3); Mean Corpuscular Volume 81.3 fL (83.0-100.0); Mean Platelet Volume 9.7 fL (9.4-12.4); Monocytes # 0.3 K/mcL (0.0-1.3); Monocytes % 6.1 %; Platelet Count 118 K/mcL (140-400); Red Blood Count 3.68 M/mcL (4.19-5.50); Red Cell Distribution Width 18.6 % (11.5-14.5); Segmented Neutrophils % 54.3 %; White Blood Count 5.5 K/mcL (4.3-11.1)
[2020-02-19] MEDS: Vancomycin 1,250 MG/262.5 ML IV.SOLN IVPB SCH (05:06)
[2020-02-19] MEDS: Pantoprazole 40 MG VIAL IVP SCH ×2 (05:07→19:57)
[2020-02-19] MEDS: Insulin LISPRO 300 UNITS/3 ML VIAL SQ SCH ×4 (08:00→20:06)
[2020-02-19] MEDS: Folic Acid 1 MG TABLET PO SCH (08:06)
[2020-02-19] MEDS: MetroNIDAZOLE 500 MG/100 ML 500 MG/100 ML BAG IVPB SCH ×3 (08:06→23:59)
[2020-02-19] MEDS: Insulin DETEMIR 100 UNIT/ML X5UNITS SQ SCH ×2 (08:06→20:18)
[2020-02-19] MEDS: Gabapentin 300 MG CAPSULE PO SCH ×3 (08:06→20:18)
[2020-02-19] MEDS: Topiramate 100 MG TABLET PO SCH ×2 (08:06→20:18)
[2020-02-19] MEDS: chlorproMAZINE 25 MG TABLET PO SCH ×3 (08:06→20:18)
[2020-02-19] MEDS: Multivit/Ca/Min/Fe/FA 1 TAB TABLET PO SCH (08:06)
[2020-02-19] MEDS ORDERED: Aminoglycoside Consult 1 EACH MC ONE (09:26)
[2020-02-19] MEDS: levoFLOXacin 750 MG/150 ML 750 MG/150 ML BAG IVPB SCH (16:01)
[2020-02-19] MEDS: hydrOXYzine pamoate 25 MG CAPSULE PO SCH (20:18)
[2020-02-19] MEDS: QUEtiapine Fumarate 100 MG TABLET PO SCH (20:18)
[2020-02-19] MEDS: Acetaminophen 325 MG TABLET PO PRN (20:18)
[2020-02-19] MEDS: Nystatin POWDER 30 GM BOTTLE TP SCH (22:00)
[2020-02-20] MEDS: Pantoprazole 40 MG VIAL IVP SCH (05:03)
[2020-02-20 05:07] LABS: eGFR For African Americans > 60 (> 60); eGFR For Non-African Americans > 60 (> 60)
[2020-02-20] MEDS: *HR* OxyCODONE/APAP 5/325 TABLET PO PRN ×2 (06:29→12:45)
[2020-02-20 07:31] VITALS: BP 110/85
[2020-02-20] MEDS: Insulin LISPRO 300 UNITS/3 ML VIAL SQ SCH ×2 (07:33→12:07)
[2020-02-20] MEDS: Topiramate 100 MG TABLET PO SCH (07:38)
[2020-02-20] MEDS: Folic Acid 1 MG TABLET PO SCH (07:38)
[2020-02-20] MEDS: Multivit/Ca/Min/Fe/FA 1 TAB TABLET PO SCH (07:38)
[2020-02-20] MEDS: chlorproMAZINE 25 MG TABLET PO SCH (07:38)
[2020-02-20] MEDS: Insulin DETEMIR 100 UNIT/ML X5UNITS SQ SCH (07:38)
[2020-02-20] MEDS: Gabapentin 300 MG CAPSULE PO SCH (07:38)
[2020-02-20] MEDS: MetroNIDAZOLE 500 MG/100 ML 500 MG/100 ML BAG IVPB SCH (07:39)
[2020-02-20] MEDS: Nystatin POWDER 30 GM BOTTLE TP SCH (07:40)
[2020-02-20 08:12] LABS: Hematocrit 30.7 % (37.5-50.1); Hemoglobin 9.6 g/dL (12.9-16.9)
[2020-02-20] MEDS ORDERED: metroNIDAZOLE 500 MG TABLET PO SCH (15:00)
[2020-02-20] MEDS ORDERED: levoFLOXacin 750 MG TABLET PO SCH (17:00)
== END 2020-02-20 16:10 | DRG 871 ==
LOC: 2NENU 07:51 → EMEROOARM 07:51 → 2NENU 13:29 → SUATTDRO 15:37
PROVIDERS: ADMIT Pediatrics; ATTEND Student in an Organized Health Care Education/Training Program
PROC: ENDOEBX (2020-02-15 18:00)

== ENCOUNTER 2020-08-17 01:44 | Observation (INO) ==
[2020-08-17 02:23] LABS: Basophils % 0.2 %; Immature Granulocytes % 0.1 % (0-4); Mean Corpuscular Volume 78.4 fL (83.0-100.0); Segmented Neutrophils % 79.9 %
[2020-08-17 02:25] LABS: Eosinophils # 0.2 K/mcL (0.0-0.6); Eosinophils % 2.9 %; Hematocrit 42.2 % (37.5-50.1); Hemoglobin 12.1 g/dL (12.9-16.9); Immature Platelets 1.5 % (1.1-6.1); Lymphocytes # 1.2 K/mcL (0.6-4.6); Lymphocytes % 14.4 %; Mean Corpuscular HGB Conc 28.7 g/dL (31.6-35.5); Mean Corpuscular Hemoglobin 22.5 pg (28.0-33.3); Mean Platelet Volume 10.9 fL (9.4-12.4); Monocytes # 0.2 K/mcL (0.0-1.3); Monocytes % 2.5 %; Neutrophils # 6.7 K/mcL (1.6-8.9); Platelet Count 148 K/mcL (140-400); Red Blood Count 5.38 M/mcL (4.19-5.50); Red Cell Distribution Width 19.2 % (11.5-14.5); White Blood Count 8.4 K/mcL (4.3-11.1)
[2020-08-17 02:32] LABS: INR 1.4; Prothrombin Time 15.5 Seconds (9.4-12.1)
[2020-08-17] MEDS ORDERED: 0.9 % Sodium Chloride 1,000 ML IVC ONE (02:32)
[2020-08-17 02:35] LABS: Activated Partial Thrombo Time 38.7 Seconds (26.0-36.0)
[2020-08-17 02:45] LABS: Alanine Aminotransferase 17 Units/L (7-52); Albumin 4.2 g/dL (3.5-5.7); Alkaline Phosphatase 110 Units/L (34-104); Aspartate Amino Transferase 22 Units/L (13-39); BUN/Creatinine Ratio 19 (6-26); Bilirubin,Direct 0.1 mg/dL (0.0-0.2); Bilirubin,Indirect 0.3 mg/dL (0.0-1.0); Bilirubin,Total 0.4 mg/dL (0.3-1.0); Blood Urea Nitrogen 15 mg/dL (6-20); Calcium 10.1 mg/dL (8.6-10.3); Carbon Dioxide 22 mEq/L (23-29); Chloride 107 mEq/L (98-107); Globulin 4.3 g/dL (2.4-3.5); Glucose 121 mg/dL (70-105); Magnesium 1.4 mg/dL (1.6-2.6); Osmolality,Calculated 290 (280-300); Potassium 3.7 mEq/L (3.5-5.1); Sodium 139 mEq/L (136-145); Total Protein 8.5 g/dL (6.4-8.9); Troponin I < 0.03 ng/mL (< 0.04); eGFR For African Americans > 60 (> 60); eGFR For Non-African Americans > 60 (> 60)
[2020-08-17 02:51] LABS: Anisocytosis 1+ (Not Present); Platelet Estimate Normal (Normal); Polychromasia 1+ (Not Present)
[2020-08-17] MEDS ORDERED: Isovue-370 500 ML BOTTLE IVP ONE (03:17)
[2020-08-17] MEDS ORDERED: Cefepime HCl 1,000 MG in Water for inj. (sterile) 10 ML IVP ONE (05:26)
[2020-08-17 05:32] LABS: Adenovirus Not Detected (Not Detect); Bordetella Pertussis Not Detected (Not Detect); Chlamydophila pneumoniae Not Detected (Not Detect); Coronavirus 229E Not Detected (Not Detect); Coronavirus HKU1 Not Detected (Not Detect); Coronavirus NL63 Not Detected (Not Detect); Coronavirus OC43 Not Detected (Not Detect); Human Metapneumovirus Not Detected (Not Detect); Human Rhinovirus/Enterovirus Not Detected (Not Detect); Influenza A Subtype 2009 H1 Not Detected (Not Detect); Influenza B Not Detected (Not Detect); Mycoplasma pneumoniae Not Detected (Not Detect); Parainfluenza Virus 1 Not Detected (Not Detect); Parainfluenza Virus 2 Not Detected (Not Detect); Parainfluenza Virus 3 Not Detected (Not Detect); Parainfluenza Virus 4 Not Detected (Not Detect); Respiratory Syncytial Virus Not Detected (Not Detect); SARS-CoV-2 Not Detected (Not Detect)
[2020-08-17] MEDS ORDERED: Naloxone 0.4 MG/ML INJ IVP PRN (06:26)
[2020-08-17] MEDS ORDERED: Ondansetron ODT 4 MG TAB.RAPDIS SL PRN (06:26)
[2020-08-17] MEDS ORDERED: Acetaminophen 325 MG TABLET PO PRN (06:26)
[2020-08-17] MEDS ORDERED: Dextrose Gel 15 GM/37.5 ML TUBE PO PRN ×2 (06:29)
[2020-08-17] MEDS ORDERED: D5% in Water 1,000 ML IVC PRN (06:29)
[2020-08-17] MEDS ORDERED: *HR* Dextrose 50 % in Water (Vial) 50 ML VIAL IVP PRN (06:29)
[2020-08-17] MEDS: 0.9 % Sodium Chloride 1,000 ML IVC SCH ×2 (08:35→16:19)
[2020-08-17] MEDS: Insulin LISPRO 300 UNITS/3 ML VIAL SQ SCH ×3 (08:35→16:31)
[2020-08-17] MEDS ORDERED: Baclofen 10 MG TABLET PO PRN (13:51)
[2020-08-17] MEDS ORDERED: MOM Conc 10 ML UD.LIQ PO PRN (13:51)
[2020-08-17] MEDS ORDERED: NON-FORMULARY MEDICATION 1 EACH EACH (Ondansetron Hcl [Zofran] 4 MG) PO PRN (13:51)
[2020-08-17] MEDS ORDERED: dexAMETHasone 4 MG TABLET PO SCH (14:00)
[2020-08-17] MEDS ORDERED: Ketoconazole Shampoo 120 ML BOTTLE TP SCH (14:00)
[2020-08-17] MEDS: Lactulose Oral Soln 20 GM/30 ML UDC PO SCH ×2 (14:55→21:23)
[2020-08-17] MEDS: *HR* LORazepam 0.5 MG TABLET PO SCH ×2 (14:55→21:21)
[2020-08-17] MEDS: *HR* OxyCODONE/APAP 7.5/325 TABLET PO PRN ×2 (14:55→21:21)
[2020-08-17] MEDS: Gabapentin 400 MG CAPSULE PO SCH ×2 (14:55→21:21)
[2020-08-17] MEDS: *HR* Heparin 5,000 UNIT/ML VIAL SQ SCH (16:20)
[2020-08-17] MEDS: Cefepime HCl 1,000 MG in 0.9 % Sodium Chloride Mini Bag 100 ML IVP SCH (16:20)
[2020-08-17] MEDS ORDERED: QUEtiapine Fumarate 100 MG TABLET PO SCH (21:00)
[2020-08-17] MEDS ORDERED: Insulin DETEMIR 100 UNIT/ML X5UNITS SQ SCH (21:00)
[2020-08-17] MEDS ORDERED: hydrOXYzine pamoate 25 MG CAPSULE PO SCH (21:00)
[2020-08-17] MEDS: Topiramate 100 MG TABLET PO SCH (21:22)
[2020-08-18] MEDS: *HR* Heparin 5,000 UNIT/ML VIAL SQ SCH (05:20)
[2020-08-18] MEDS: *HR* OxyCODONE/APAP 7.5/325 TABLET PO PRN (05:20)
[2020-08-18] MEDS: Cefepime HCl 1,000 MG in 0.9 % Sodium Chloride Mini Bag 100 ML IVP SCH (05:30)
[2020-08-18 07:11] LABS: Hematocrit 35.1 % (37.5-50.1); INR 1.6; Immature Platelets 1.6 % (1.1-6.1); Mean Corpuscular HGB Conc 28.5 g/dL (31.6-35.5); Mean Corpuscular Hemoglobin 22.6 pg (28.0-33.3); Mean Corpuscular Volume 79.4 fL (83.0-100.0); Mean Platelet Volume 11.9 fL (9.4-12.4); Red Blood Count 4.42 M/mcL (4.19-5.50); Red Cell Distribution Width 18.4 % (11.5-14.5); White Blood Count 8.3 K/mcL (4.3-11.1)
[2020-08-18] MEDS: Insulin LISPRO 300 UNITS/3 ML VIAL SQ SCH (07:21)
[2020-08-18 07:23] LABS: BUN/Creatinine Ratio 15 (6-26); Blood Urea Nitrogen 10 mg/dL (6-20); Calcium 8.9 mg/dL (8.6-10.3); Carbon Dioxide 22 mEq/L (23-29); Chloride 114 mEq/L (98-107); Glucose 69 mg/dL (70-105); Magnesium 1.8 mg/dL (1.6-2.6); Osmolality,Calculated 289 (280-300); Phosphorous 2.5 mg/dL (2.7-4.5); Sodium 141 mEq/L (136-145); eGFR For African Americans > 60 (> 60); eGFR For Non-African Americans > 60 (> 60)
[2020-08-18] MEDS: *HR* LORazepam 0.5 MG TABLET PO SCH (07:29)
[2020-08-18] MEDS: Topiramate 100 MG TABLET PO SCH (07:29)
[2020-08-18] MEDS: Gabapentin 400 MG CAPSULE PO SCH (07:29)
[2020-08-18] MEDS: Lactulose Oral Soln 20 GM/30 ML UDC PO SCH (07:29)
[2020-08-18] MEDS ORDERED: Aspirin Enteric Coated 81 MG Tablet PO SCH (09:00)
[2020-08-18] MEDS ORDERED: Insulin DETEMIR 100 UNIT/ML X5UNITS SQ SCH (09:00)
[2020-08-18] MEDS ORDERED: Ascorbic Acid 500 MG TABLET PO SCH (09:00)
[2020-08-18] MEDS ORDERED: Folic Acid 1 MG TABLET PO SCH (09:00)
[2020-08-18 10:03] VITALS: BP 111/78
== END 2020-08-18 10:58 ==
LOC: EMEROOARM 01:44 → 3BNU 01:44 → SUATTDRO 06:32 → 3BNU 08:10
PROVIDERS: ADMIT Student in an Organized Health Care Education/Training Program; ATTEND Internal Medicine

== ENCOUNTER 2021-07-08 16:05 | Observation (INO) ==
[2021-07-08 17:06] LABS: Basophils % 0.3 %; Eosinophils # 0.2 K/mcL (0.0-0.6); Eosinophils % 2.7 %; Hematocrit 38.5 % (37.5-50.1); Hemoglobin 11.5 g/dL (12.9-16.9); Immature Granulocytes % 0.3 % (0-4); Lymphocytes # 1.9 K/mcL (0.6-4.6); Mean Corpuscular HGB Conc 29.9 g/dL (31.6-35.5); Mean Corpuscular Hemoglobin 23.4 pg (28.0-33.3); Mean Corpuscular Volume 78.4 fL (83.0-100.0); Mean Platelet Volume 9.2 fL (9.4-12.4); Monocytes # 0.5 K/mcL (0.0-1.3); Monocytes % 6.3 %; Neutrophils # 5.9 K/mcL (1.6-8.9); Platelet Count 132 K/mcL (140-400); Red Blood Count 4.91 M/mcL (4.19-5.50); Red Cell Distribution Width 17.4 % (11.5-14.5); Segmented Neutrophils % 68.4 %; White Blood Count 8.6 K/mcL (4.3-11.1)
[2021-07-08 17:29] LABS: Alanine Aminotransferase 13 Units/L (7-52); Albumin 3.6 g/dL (3.5-5.7); Albumin/Globulin Ratio 1.1 (1.1-2.2); Alkaline Phosphatase 105 Units/L (34-104); Aspartate Amino Transferase 14 Units/L (13-39); BUN/Creatinine Ratio 9 (6-26); Bilirubin,Direct 0.1 mg/dL (0.0-0.2); Bilirubin,Indirect 0.1 mg/dL (0.0-1.0); Bilirubin,Total 0.2 mg/dL (0.3-1.0); Blood Urea Nitrogen 7 mg/dL (6-20); Calcium 9.4 mg/dL (8.6-10.3); Carbon Dioxide 21 mEq/L (23-29); Chloride 113 mEq/L (98-107); Ethanol < 10 mg/dL (Less than 10); Globulin 3.4 g/dL (2.4-3.5); Glucose 102 mg/dL (70-105); Osmolality,Calculated 294 (280-300); Potassium 3.6 mEq/L (3.5-5.1); Sodium 143 mEq/L (136-145); Troponin I < 0.03 ng/mL (< 0.04); eGFR For African Americans > 60 (> 60); eGFR For Non-African Americans > 60 (> 60)
[2021-07-08 17:33] LABS: INR 1.2
[2021-07-08] MEDS: 0.9 % Sodium Chloride 1,000 ML IVC SCH (17:53)
[2021-07-08 17:55] LABS: Bilirubin,Urine Negative (Negative); Blood,Urine Moderate (Negative); Clarity,Urine Turbid (Clear); Color,Urine Yellow (Yellow); Glucose,Urine (UA) Normal (Normal); Hyaline Casts,Urine Few per lpf (None Seen); Ketones,Urine Negative (Negative); Leukocyte Esterase,Urine Large (Negative); Mucus,Urine Few per lpf (None-Few); Nitrite,Urine Negative (Negative); Protein,Urine Trace mg/dL (Neg-Trace); RBC,Urine 30-50 per hpf (0-3); Specific Gravity,Urine 1.015 (1.010-1.025); Urobilinogen,Urine Normal (Normal); WBC,Urine TNTC per hpf (0-3)
[2021-07-08 18:04] LABS: Amphetamine Screen,Urine Negative ng/mL (Cutoff=1000); Barbiturate Screen,Urine Negative ng/mL (Cutoff=200); Benzodiazepines Screen,Urine Negative ng/mL (Cutoff=200); Cannabinoid Screen,Urine Negative ng/mL (Cutoff = 50); Cocaine Screen,Urine Negative ng/mL (Cutoff= 300); Opiate Screen,Urine Positive ng/mL (Cutoff=300); Phencyclidine Screen,Urine Negative ng/mL (Cutoff=25)
[2021-07-08] MEDS ORDERED: Naloxone 0.4 MG/ML INJ IVP ONE (18:11)
[2021-07-09] MEDS: 0.9 % Sodium Chloride 1,000 ML IVC SCH ×4 (01:51→15:36)
[2021-07-09] MEDS ORDERED: cefTRIAXone 1,000 MG in Water for inj. (sterile) 10 ML IVP ONE (07:00)
[2021-07-09] MEDS ORDERED: Ondansetron ODT 4 MG TAB.RAPDIS SL PRN (07:15)
[2021-07-09] MEDS ORDERED: Mag Hydrox/Al Hydrox/Simeth 30 ML UDC PO PRN (07:15)
[2021-07-09] MEDS ORDERED: Naloxone 0.4 MG/ML INJ IVP PRN (07:15)
[2021-07-09] MEDS ORDERED: Melatonin 3 MG TABLET PO PRN (07:15)
[2021-07-09] MEDS: *HR* LORazepam 0.5 MG TABLET PO SCH ×3 (09:02→19:20)
[2021-07-09 10:59] LABS: Red Cell Distribution Width 17.5 % (11.5-14.5); White Blood Count 10.4 K/mcL (4.3-11.1)
[2021-07-09 11:01] LABS: Hematocrit 38.6 % (37.5-50.1); Hemoglobin 11.4 g/dL (12.9-16.9); Mean Corpuscular HGB Conc 29.5 g/dL (31.6-35.5); Mean Corpuscular Hemoglobin 23.6 pg (28.0-33.3); Mean Corpuscular Volume 79.8 fL (83.0-100.0); Platelet Count 127 K/mcL (140-400); Red Blood Count 4.84 M/mcL (4.19-5.50)
[2021-07-09] MEDS: Vancomycin 1,250 MG/262.5 ML IV.SOLN IVPB SCH ×2 (11:04→19:58)
[2021-07-09 11:08] LABS: BUN/Creatinine Ratio 11 (6-26); Blood Urea Nitrogen 8 mg/dL (6-20); Carbon Dioxide 24 mEq/L (23-29); Chloride 114 mEq/L (98-107); Glucose 104 mg/dL (70-105); Osmolality,Calculated 297 (280-300); Sodium 144 mEq/L (136-145); eGFR For African Americans > 60 (> 60); eGFR For Non-African Americans > 60 (> 60)
[2021-07-09 11:42] LABS: Adenovirus Not Detected (Not Detect); Bordetella Pertussis Not Detected (Not Detect); Chlamydophila pneumoniae Not Detected (Not Detect); Coronavirus 229E Not Detected (Not Detect); Coronavirus HKU1 Not Detected (Not Detect); Coronavirus NL63 Not Detected (Not Detect); Coronavirus OC43 Not Detected (Not Detect); Human Metapneumovirus Not Detected (Not Detect); Human Rhinovirus/Enterovirus Not Detected (Not Detect); Influenza A Subtype 2009 H1 Not Detected (Not Detect); Influenza B Not Detected (Not Detect); Mycoplasma pneumoniae Not Detected (Not Detect); Parainfluenza Virus 1 Not Detected (Not Detect); Parainfluenza Virus 2 Not Detected (Not Detect); Parainfluenza Virus 3 Not Detected (Not Detect); Parainfluenza Virus 4 Not Detected (Not Detect); Respiratory Syncytial Virus Not Detected (Not Detect); SARS-CoV-2 Not Detected (Not Detect)
[2021-07-09 14:17] LABS: ABG Base Excess -4 mEq/L (-2 to 3); ABG HCO3 21 mEq/L (21-27); ABG Oxygen Saturation 64 % (95-98); ABG PCO2 39 mmHg (35-45); ABG PH 7.35 pH Units (7.32-7.45); ABG PO2 35 mmHg (85-104); ABG TCO2 23 mEq/L (20-26)
[2021-07-09 14:29] LABS: Amphetamine Screen,Urine Negative ng/mL (Cutoff=1000); Barbiturate Screen,Urine Negative ng/mL (Cutoff=200); Benzodiazepines Screen,Urine Negative ng/mL (Cutoff=200); Cannabinoid Screen,Urine Negative ng/mL (Cutoff = 50); Cocaine Screen,Urine Negative ng/mL (Cutoff= 300); Opiate Screen,Urine Positive ng/mL (Cutoff=300); Phencyclidine Screen,Urine Negative ng/mL (Cutoff=25)
[2021-07-09] MEDS: Cefepime HCl 2,000 MG in 0.9 % Sodium Chloride Mini Bag 100 ML IVPB SCH (15:35)
[2021-07-09] MEDS: Acetylcysteine 10% 2 ML INHSOL IH SCH ×2 (16:40→21:22)
[2021-07-09] MEDS: MetroNIDAZOLE 500 MG/100 ML 500 MG/100 ML BAG IVPB SCH (17:04)
[2021-07-09] MEDS: *HR* Heparin 5,000 UNIT/ML VIAL SQ SCH (17:12)
[2021-07-09] MEDS ORDERED: Ipratropium/Albuterol Neb 3 ML ONE (20:53)
[2021-07-09] MEDS: Ipratropium/Albuterol Neb 3 ML IH PRN (21:22)
[2021-07-10] MEDS: MetroNIDAZOLE 500 MG/100 ML 500 MG/100 ML BAG IVPB SCH ×4 (02:21→23:56)
[2021-07-10] MEDS: 0.9 % Sodium Chloride 1,000 ML IVC SCH (02:22)
[2021-07-10] MEDS: Cefepime HCl 2,000 MG in 0.9 % Sodium Chloride Mini Bag 100 ML IVPB SCH ×4 (02:22→23:53)
[2021-07-10] MEDS: *HR* Heparin 5,000 UNIT/ML VIAL SQ SCH ×3 (02:23→23:58)
[2021-07-10] MEDS: Ipratropium/Albuterol Neb 3 ML IH PRN (07:33)
[2021-07-10] MEDS: Acetylcysteine 10% 2 ML INHSOL IH SCH ×2 (07:34→15:51)
[2021-07-10] MEDS: *HR* LORazepam 0.5 MG TABLET PO SCH ×3 (07:53→19:49)
[2021-07-10] MEDS: Vancomycin 1,250 MG/262.5 ML IV.SOLN IVPB SCH ×2 (07:53→21:47)
[2021-07-10] MEDS ORDERED: cefTRIAXone 1,000 MG in Water for inj. (sterile) 10 ML IVP SCH (09:00)
[2021-07-10] MEDS: Nicotine 21 MG PATCH.TD24 TD SCH (10:09)
[2021-07-10 12:01] LABS: Hematocrit 36.5 % (37.5-50.1); Hemoglobin 10.8 g/dL (12.9-16.9); Mean Corpuscular HGB Conc 29.6 g/dL (31.6-35.5); Mean Corpuscular Volume 77.8 fL (83.0-100.0); Mean Platelet Volume 9.8 fL (9.4-12.4); Platelet Count 125 K/mcL (140-400); Red Blood Count 4.69 M/mcL (4.19-5.50); White Blood Count 7.4 K/mcL (4.3-11.1)
[2021-07-10 12:13] LABS: BUN/Creatinine Ratio 15 (6-26); Blood Urea Nitrogen 10 mg/dL (6-20); Calcium 8.8 mg/dL (8.6-10.3); Carbon Dioxide 23 mEq/L (23-29); Chloride 107 mEq/L (98-107); Glucose 162 mg/dL (70-105); Osmolality,Calculated 289 (280-300); Potassium 3.2 mEq/L (3.5-5.1); Sodium 138 mEq/L (136-145); eGFR For African Americans > 60 (> 60); eGFR For Non-African Americans > 60 (> 60)
[2021-07-10] MEDS ORDERED: Potassium Chloride Elixir 20 MEQ/15 ML UDC PO ONE (15:34)
[2021-07-10] MEDS: Lactulose Oral Soln 20 GM/30 ML UDC PO SCH (19:49)
[2021-07-10] MEDS: chlorproMAZINE 25 MG TABLET PO SCH (19:50)
[2021-07-10] MEDS: Gabapentin 400 MG CAPSULE PO SCH (19:50)
[2021-07-10] MEDS: Topiramate 100 MG TABLET PO SCH (19:51)
[2021-07-10] MEDS ORDERED: QUEtiapine Fumarate 100 MG TABLET PO SCH (21:00)
[2021-07-10] MEDS ORDERED: Mirtazapine 15 MG TABLET PO SCH (21:00)
[2021-07-11 06:29] LABS: VBG HCO3 19 mEq/L (21-27); VBG PCO2 28 mmHg (41-51); VBG PH 7.44 pH Units (7.32-7.42); VBG PO2 65 mmHg (25-50)
[2021-07-11 06:31] LABS: Basophils % 0.5 %; Eosinophils # 0.2 K/mcL (0.0-0.6); Eosinophils % 3.3 %; Hematocrit 36.7 % (37.5-50.1); Hemoglobin 11.1 g/dL (12.9-16.9); Lymphocytes # 1.4 K/mcL (0.6-4.6); Mean Corpuscular HGB Conc 30.2 g/dL (31.6-35.5); Mean Corpuscular Hemoglobin 23.1 pg (28.0-33.3); Mean Corpuscular Volume 76.3 fL (83.0-100.0); Mean Platelet Volume 10.3 fL (9.4-12.4); Monocytes # 0.4 K/mcL (0.0-1.3); Monocytes % 6.5 %; Neutrophils # 3.7 K/mcL (1.6-8.9); Platelet Count 106 K/mcL (140-400); Red Blood Count 4.81 M/mcL (4.19-5.50); Red Cell Distribution Width 16.9 % (11.5-14.5); Segmented Neutrophils % 63.7 %; White Blood Count 5.7 K/mcL (4.3-11.1)
[2021-07-11 06:45] LABS: BUN/Creatinine Ratio 15 (6-26); Blood Urea Nitrogen 10 mg/dL (6-20); Calcium 9.3 mg/dL (8.6-10.3); Carbon Dioxide 20 mEq/L (23-29); Chloride 114 mEq/L (98-107); Glucose 125 mg/dL (70-105); Osmolality,Calculated 293 (280-300); Potassium 3.6 mEq/L (3.5-5.1); Sodium 141 mEq/L (136-145); eGFR For African Americans > 60 (> 60); eGFR For Non-African Americans > 60 (> 60)
[2021-07-11 06:59] VITALS: TEMP 97.7
[2021-07-11] MEDS ORDERED: *HR* Dextrose 50 % in Water (Syg) 50 ML SYRINGE IVP PRN (08:26)
[2021-07-11] MEDS ORDERED: Dextrose Gel 15 GM/37.5 ML TUBE PO PRN ×2 (08:26)
[2021-07-11] MEDS ORDERED: D5% in Water 1,000 ML IVC PRN (08:26)
[2021-07-11] MEDS ORDERED: BuPROPion XL (24 HR) 150 MG TABLET PO SCH (09:00)
[2021-07-11] MEDS ORDERED: Aspirin Enteric Coated 81 MG Tablet PO SCH (09:00)
[2021-07-11] MEDS ORDERED: Folic Acid 1 MG TABLET PO SCH (09:00)
[2021-07-11] MEDS: Lactulose Oral Soln 20 GM/30 ML UDC PO SCH (09:29)
[2021-07-11] MEDS: Nicotine 21 MG PATCH.TD24 TD SCH (09:29)
[2021-07-11] MEDS: MetroNIDAZOLE 500 MG/100 ML 500 MG/100 ML BAG IVPB SCH (09:29)
[2021-07-11] MEDS: Cefepime HCl 2,000 MG in 0.9 % Sodium Chloride Mini Bag 100 ML IVPB SCH (09:29)
[2021-07-11] MEDS: Gabapentin 400 MG CAPSULE PO SCH (09:30)
[2021-07-11] MEDS: Topiramate 100 MG TABLET PO SCH (09:30)
[2021-07-11] MEDS: *HR* LORazepam 0.5 MG TABLET PO SCH (09:30)
[2021-07-11] MEDS: chlorproMAZINE 25 MG TABLET PO SCH (09:30)
[2021-07-11 10:32] VITALS: BP 124/85; PULSE 76; O2SAT 95
[2021-07-11 10:41] LABS: Influenza A PCR Negative (Negative); Influenza B PCR Negative (Negative); Resp. Syncytial Virus PCR Negative (Negative); SARS-CoV-2 by PCR (In House) Negative (Negative)
[2021-07-11] MEDS ORDERED: Insulin LISPRO 300 UNITS/3 ML VIAL SUBQ SCH ×2 (11:30→21:00)
[2021-07-12] MEDS ORDERED: Ketoconazole Shampoo 120 ML BOTTLE TP SCH (18:26)
== END 2021-07-11 13:02 ==
LOC: 3BNU 16:05 → EMEROOARM 16:05 → SUATTDRO 07-09 11:33 → 3BNU 07-09 12:59
PROVIDERS: ADMIT Family Medicine; ATTEND Internal Medicine